=== PATIENT | female | born 1960 | race Caucasian/White ===

== ENCOUNTER → 2016-10-07 | Outpatient (CLI) | payer BC, MEDICARE ==
[~2016-10-07] MED LIST: ALPR0.5T PO; AMLO10TA82 PO; AMLO5TAB2 PO; ASP81TEC PO; CITA-105 PO; DICY20TA10 PO; ESCI20TA2 PO; ESTR1TAB24 PO; FURO20TA4 PO; HYOS0.3710 PO; METO25TA2 PO; PNT40TEC PO; PRD10T PO; TRZ50T PO; XANAX
--- NOTE | 2016-10-07 12:24 | Diagnostic Imaging Report ---
PROCEDURE: MR imaging cervical spine without contrast. TECHNIQUE: Multiplanar, multisequence MR imaging of the cervical spine was performed without contrast. INDICATION: Left arm pain and numbness. FINDINGS: There is straightening of the cervical spine. The alignment of the posterior spinal line is satisfactory. There is a congenital, relatively narrow AP dimension of the spinal canal particularly around the mid cervical spine levels. With superimposed prominent posterior longitudinal ligament thickening, this results in moderate central canal stenosis from lower C3 to upper C6 levels. There is preserved vertebral body heights. There is a mild disc height loss around the mid cervical spine levels and there is disc desiccation at all levels. No significant marrow signal abnormality is seen. There is suggestion of multilevel uncovertebral and facet joint hypertrophy. The foramen magnum and the upper cervical canal are patent. The spinal cord has normal signal with no focal lesion identified. There is thickening of the posterior longitudinal ligament from lower C3 to upper C6 levels. C2-C3: No disc herniation, no spinal canal or foraminal stenosis. C3-C4: There is a disc spur complex eccentric to the right side and associated with ycuhlyee-qq-eiqdji spinal canal stenosis reducing the AP dimension of the central canal to 7 mm and is associated with the mild cord compression particularly along the right side of the spinal cord with no definite cord signal abnormality. There is bilateral uncovertebral and facet joint hypertrophy resulting in bilateral severe foraminal stenosis. C4-C5: There is spur disc complex resulting in moderate spinal canal stenosis with reduced AP dimension of the canal to 8.5 mm. No cord compression. The foramina demonstrate mild stenosis on the right and severe stenosis on the left. C5-C6: There is a spur disc complex more prominent along the left paracentral region. This is associated with qbdtusfx-cn-nloahj spinal canal stenosis reducing the AP dimension of the central canal to 7.7 mm and associated with minimal compression of the left side of the spinal cord at this level. The foramina demonstrate severe stenosis on the right mainly related to uncovertebral joint spurring and mild stenosis in the left foramen. C6-C7: There is spur disc complex associated with moderate spinal canal stenosis reducing the AP dimension of the canal to 8.4 mm with no cord compression. There is a bilateral moderate foraminal stenosis. C7-T1: No disc herniation, no spinal canal or foraminal stenosis. IMPRESSION: Relatively narrow AP dimension of the spinal canal in the mid cervical spine with superimposed thickening of the posterior longitudinal ligament and degenerative changes resulting in multilevel significant spinal canal and foraminal stenosis with relatively mild areas of cord compression as described. No cord signal abnormality is seen. Dictated by: Dictated on workstation # [id number]
== END ==
LOC: RAD 09:27
PROVIDERS: ATTEND Orthopaedic Surgery
DX: M47.812 Spondylosis without myelopathy or radiculopathy, cervical region (principal); M48.02 Spinal stenosis, cervical region
CPT/HCPCS: 72141

== ENCOUNTER 2017-03-03 20:37 | Outpatient (CLI) | payer MEDICARE | END 2017-03-04 06:40 | disposition home or self-care (01) | LOC: SLEEP 20:37 | PROVIDERS: ATTEND Nurse Practitioner Family | DX: G47.33 Obstructive sleep apnea (adult) (pediatric) (principal) | CPT/HCPCS: 95810 ==

== ENCOUNTER 2017-03-13 12:56 | Outpatient (CLI) | payer MEDICARE ==
[~2017-03-13] VITALS: Ht 152.4 cm; Wt 101.6 kg
[2017-03-13 13:13] VITALS: BP 154/92
[2017-03-13] MEDS ORDERED: ESCI20TA45 PO (13:15)
[2017-03-13] MEDS ORDERED: AMLO10TA2 PO (13:15)
[2017-03-13] MEDS ORDERED: FURO20TA4 PO (13:15)
[2017-03-13 14:01] LABS: BASOPHILS % (AUTO) 1 % (0-10); EOSINOPHILS # (AUTO) 0.1 10^3/uL (0.0-0.3); EOSINOPHILS % (AUTO) 1 % (0-10); LYMPHOCYTES # (AUTO) 1.9 X 10^3 (1.0-4.0); LYMPHOCYTES % (AUTO) 23 % (12-44); MEAN CORPUSCULAR HEMOGLOBIN 33 PG (25-34); MEAN CORPUSCULAR HGB CONC 34 G/DL (32-36); MEAN CORPUSCULAR VOLUME 98 FL (80-99); MEAN PLATELET VOLUME 10.9 FL (7.4-10.4); MONOCYTES # (AUTO) 0.5 X 10^3 (0.0-1.0); MONOCYTES % (AUTO) 6 % (0-12); NEUTROPHILS % (AUTO) 70 % (42-75); PLATELET COUNT 327 10^3/uL (130-400); RED BLOOD COUNT 4.36 10^6/uL (4.35-5.85); RED CELL DISTRIBUTION WIDTH 12.6 % (10.0-14.5); WHITE BLOOD COUNT 8.6 10^3/uL (4.3-11.0)
[2017-03-13 14:19] LABS: CALCIUM 9.5 MG/DL (8.5-10.1); CREATININE SERUM 1.02 MG/DL (0.60-1.30); POTASSIUM 3.2 MMOL/L (3.6-5.0)
== END 2017-03-13 13:40 | disposition home or self-care (01) ==
LOC: PREOP 12:56
PROVIDERS: ATTEND Orthopaedic Surgery
DX: Z01.810 Encounter for preprocedural cardiovascular examination (principal); Z01.812 Encounter for preprocedural laboratory examination; Z11.2 Encounter for screening for other bacterial diseases; M48.02 Spinal stenosis, cervical region; I10 Essential (primary) hypertension; E13.9 Other specified diabetes mellitus without complications
CPT/HCPCS: 36415; 80048; 85025; 86850; 86900; 86901; 87081; 93005

== ENCOUNTER 2017-03-20 09:11 | Inpatient (IN) | payer MEDICARE ==
[~2017-03-20] VITALS: Ht 152.4 cm; Wt 101.6 kg
[~2017-03-20 09:11] MED LIST changes: +AMLO10TA2 PO; +ESCI20TA45 PO
[2017-03-20 09:38] VITALS: BP 148/85
[2017-03-20] MEDS: LACTATED RINGERS 1,000 ML IV PRN ×3 (09:45→15:30)
[2017-03-20] MEDS ORDERED: CLINDAMYCIN INJECTION 600 MG in NS (IVPB) 50 ML IV ONE (09:45)
[2017-03-20] MEDS: MUPIROCIN 2% OINT 22 GM (BACTROBAN) TUBE NSEACH SCH ×2 (09:52→22:29)
[2017-03-20] MEDS ORDERED: LACTATED RINGERS 1,000 ML IV PRN (10:38)
[2017-03-20] MEDS ORDERED: SCOPOLAMINE 1.5 MG (TRANSDERM-SCOP) PATCH TOP ONE (10:45)
[2017-03-20] MEDS ORDERED: ONDANSETRON 4 MG/2 ML (SDV) Z0FRAN IV ONE (10:45)
[2017-03-20] MEDS ORDERED: FAMOTIDINE 20MG/2ML IV (PEPCID) IV ONE (10:45)
[2017-03-20] MEDS ORDERED: MIDAZOLAM 2 MG/2 ML (VERSED) VIAL ONE (10:46)
[2017-03-20] MEDS ORDERED: SUCCINYLCHOLINE INJ 100 MG/5 ML SYR ONE (10:46)
[2017-03-20] MEDS ORDERED: fentaNYL INJECTION 250 MCG/5 ML AMP ONE (10:46)
[2017-03-20] MEDS ORDERED: DEXMEDETOMIDINE 200 MCG/2 ML (PRECEDEX) VIAL IV ONE ×2 (10:46→14:29)
[2017-03-20] MEDS ORDERED: proPOfol 200 MG/20 ML (DIPRIVAN) VIAL IV ONE (10:46)
[2017-03-20] MEDS ORDERED: ROCURONIUM 50 MG/5 ML (ZEMURON) VIAL IV ONE (10:55)
[2017-03-20] MEDS ORDERED: SEVOFLURANE (ULTANE) 15 ML INHAL SOLN ONE ×9 (12:09→15:09)
[2017-03-20] MEDS ORDERED: ONDANSETRON 4 MG/2 ML (SDV) Z0FRAN ONE (12:09)
[2017-03-20] MEDS ORDERED: DEXAMETHASONE 10 MG/ML (DECADRON) 1 ML VIAL ONE ×2 (12:09→14:29)
[2017-03-20] MEDS ORDERED: BACITRACIN 100,000 UNIT/NS 1000 ML POUR BOTTLE IR ONE ×2 (12:15)
[2017-03-20] MEDS ORDERED: BISACODYL 5 MG (DULCOLAX) TABLET PO PRN (15:45)
[2017-03-20] MEDS ORDERED: DOCUSATE SODIUM 100 MG (COLACE) CAP PO PRN (15:45)
[2017-03-20] MEDS ORDERED: ONDANSETRON 4 MG/2 ML (SDV) Z0FRAN IV PRN (15:45)
[2017-03-20] MEDS ORDERED: BISACODYL 10 MG SUPP (DULCOLAX) PR PRN (15:45)
[2017-03-20] MEDS ORDERED: CYCLOBENZAPRINE 10 MG (FLEXERIL) TAB PO PRN (15:45)
[2017-03-20] MEDS ORDERED: ACETAMINOPHEN 325 MG TABLET/CAPLET (TYLENOL) PO PRN (15:45)
[2017-03-20] MEDS ORDERED: MEPERIDINE (DEMEROL) INJ 50 MG/ML IVP PRN (16:15)
[2017-03-20] MEDS ORDERED: ONDANSETRON 4 MG/2 ML (SDV) Z0FRAN IVP PRN (16:15)
[2017-03-20] MEDS ORDERED: fentaNYL INJECTION 100 MCG/2 ML AMP IVP PRN (16:15)
[2017-03-20 16:40] VITALS: BP 99/58
--- NOTE | 2017-03-20 17:03 | Diagnostic Imaging Report ---
EXAMINATION: Intraoperative view of the cervical spine. INDICATION: Fusion and decompression surgery in the cervical spine. FLUOROSCOPIC TIME: The fluoroscopic time provided to the OR is 23 seconds. IMPRESSION: Anterior plate and corpectomy changes involving the cervical spine from the C3 to C6 levels is suggested on the provided images. Dictated by: Dictated on workstation # [id number]
[2017-03-20] MEDS: HYDROcodone/APAP 5 MG/325 MG (LORTAB) TAB PO PRN ×2 (18:09→22:29)
[2017-03-20] MEDS ORDERED: INFLUENZA TRIvalent 2017-2018 0.5 ML/45 MCG SYR IM ONE (18:15)
[2017-03-20] MEDS: ceFAZolin INJECTION 1,000 MG in NS (IVPB) 50 ML IV SCH (18:57)
[2017-03-20 19:10] VITALS: BP 124/63
[2017-03-20] MEDS ORDERED: NON-FORMULARY MEDICATION 1 EA EA (Escitalopram Oxalate 20 MG) PO SCH (21:00)
[2017-03-20] MEDS: SENNOSIDES 8.6 MG (SENOKOT) TAB PO SCH (21:25)
[2017-03-20] MEDS: FAMOTIDINE 20 MG (PEPCID) TABLET PO SCH (21:25)
--- NOTE | 2017-03-20 23:39 | OPERATIVE REPORT ---
DATE OF SERVICE: 03/20/2017 SURGEON: Ras Cunningham DO. SUSHI CHEF: RAYMUNDO Flores. This is a medically necessary procedure. Assistance is necessary for retraction of vital neurovascular structures. Without an sales office assistant the procedure would not be possible. PREOPERATIVE DIAGNOSES: 1. Cervical stenosis (central, foraminal, bony). 2. Cervical radiculopathy. POSTOPERATIVE DIAGNOSES: 1. Cervical stenosis (central, foraminal, bony). 2. Cervical radiculopathy. PROCEDURES PERFORMED: 1. C3-4, C4-5, C5-6 anterior cervical diskectomy and fusion. 2. Application of titanium cage, C5-C6. 3. Application of corpectomy titanium cage C3 to C5. 4. C4 corpectomy. 5. Anterior instrumentation C3 to C6. 6. Use of human allograft for spine. 7. Use of local bone autograft. COMPLICATIONS: None. SPECIMENS SENT: None. DRAINS PLACED: Hemovac. ANESTHESIA: General endotracheal tube anesthesia with local anesthetic. HISTORY OF PRESENT ILLNESS: The patient is a very pleasant, morbidly obese 57-year-old female, who presented to me with severe bilateral upper extremity pain and neck pain. MRI demonstrated severe congenital stenosis with superimposed acquired stenosis at C3 all the way to C6 that stenosis did extend behind the body of C4. It was discussed with the patient her surgical options and I suggested a corpectomy in order to thoroughly decompress the spinal cord. She was agreeable. OPERATION: The patient was identified by name on wrist in the preoperative holding area. Her operative site was signed. Consent was signed. SCDs were placed. Neuro monitors hooked up. Antibiotics were started. She was taken to the operating room theater and placed under general endotracheal tube anesthesia and transferred to the operating room table in supine position. She was prepped and draped in usual sterile fashion. Formal timeout was conducted. At this point, a left-sided oblique incision was made just medial to the left sternocleidomastoid. Standard anterior cervical approach then took place. I then verified my level under lateral x-ray and I started at C3-4. I placed [place] pins in the body of C3 and the body of C4. I placed distraction across the disk space. I then performed a complete diskectomy. I then turned my attention to the C4-C5 level. I repeated this process. I then placed the [place] pin in the body of C3 and the body of C5. I applied distraction across the C4 vertebra, performed a complete corpectomy taking down the posterior longitudinal ligament and performing bilateral foraminotomies at both those levels. Once the decompression was complete, here I chose the appropriate titanium interbody cage packed with human allograft and local bone autograft and I seated it in the midline position. I then turned my attention to the C5-C6 level where I performed an annulotomy followed by diskectomy followed by bilateral foraminotomies. I packed in a titanium cage and packed that into the disk space at C5-C6. I then placed an appropriate sized plate in the midline position which extended from C3 to C6. I placed screws into the vertebral bodies of C3, C5 and C6. I checked a final AP and lateral x-ray and the hardware was in good position. At this point, I maintained hemostasis, irrigated the wound thoroughly, placed a deep drain alongside the plate. Then, I closed the wound in my usual layered fashion utilizing 3-0 Vicryl followed by running 3-0 subcuticular stitch. I applied dressings and took the patient in the supine position to the PACU where she awoke without incident. She tolerated the procedure well. PLAN: At this time, is to keep the patient in a hard collar whenever out of bed this evening. We will discontinue the drain and [place] per my protocol. Please note, instrumentation utilized was [employer] for everything. Job ID: [id number] DocumentID: [id number] Dictated Date: 03/20/2017 15:16:57 Medical Office Rep Date: 03/20/2017 23:39:14 Dictated By: RAS CUNNINGHAM DO
[2017-03-21] VITALS: BP 131/63
[2017-03-21] MEDS: HYDROcodone/APAP 10 MG/325 MG (LORTAB) TAB PO PRN ×2 (02:18→06:28)
[2017-03-21] MEDS: ceFAZolin INJECTION 1,000 MG in NS (IVPB) 50 ML IV SCH ×2 (03:08→12:03)
[2017-03-21 04:00] VITALS: BP 136/78
[2017-03-21] MEDS ORDERED: MULTIVIT W/MINERALS TAB (THERAGRAN M) PO SCH (07:00)
--- NOTE | 2017-03-21 07:45 | Discharge Summary ---
Diagnosis/Chief Complaint Date of Admission Mar 20, 2017 at 09:11 Date of Discharge 03/21/2017 Discharge Date: Mar 21, 2017 Discharge Time: 12:00 Admission Diagnosis Admission Diagnosis cervical stenosis Discharge Diagnosis same Reason Hospital Visit 57 yr old WF with severe cervical stenosis was admitted and underwent cervical fusion from C3-6. This was uncomplicated and she tolerated it well. She was stable for discharge home on POD 1. Discharge Summary Discharge Physical Examination Allergies: Coded Allergies: Penicillins (Verified Allergy, Unknown, 03/20/17) codeine (Verified Allergy, Unknown, 03/20/17) oxycodone (Verified Allergy, Unknown, 03/20/17) Vitals & I&Os Vital Signs Date Time Temp Pulse Resp B/P (MAP) Pulse Ox O2 Delivery O2 Flow Rate FiO2 03/21/17 04:00 97.8 97 18 136/78 (97) 97 Room Air 03/21/17 00:00 2.50 Extremities: Other (5/5 motor gayla UE, NVSI, wound CDI) Hospital Course underwent C3-6 acdf on 03/20/17. this was uncomplicated and she was stable for dc home on POD 1. Discharge Instructions to patient/family Please see electronic discharge instructions given to patient. Discharge Medications Reviewed and agree with Discharge Medication list on patient's Discharge Instruction sheet Clinical Quality Measures DVT/VTE Risk/Contraindication: Risk Factor Score Per Nursin RFS Level Per Nursing on Admit: 4+=Very High RAS DE SANTIAGO DO Mar 21, 2017 07:45
--- NOTE | 2017-03-21 07:52 | Discharge Inst-Simple/Standard ---
Discharge Inst-Standard Discharge Medications New, Converted or Re-Newed RX: RX Given to Pt/Family Patient Instructions/Follow Up Plan of Care/Instructions/FU: f/u in two weeks Activity as Tolerated: Yes Discharge Diet: No Restrictions RAS DE SANTIAGO DO Mar 21, 2017 07:52
[2017-03-21 08:00] VITALS: BP 168/93
[2017-03-21] MEDS: HYDROmorphone (DILAUDID) 4 MG TAB PO PRN ×2 (08:35→12:40)
[2017-03-21] MEDS: FAMOTIDINE 20 MG (PEPCID) TABLET PO SCH (08:42)
[2017-03-21] MEDS: SENNOSIDES 8.6 MG (SENOKOT) TAB PO SCH (08:42)
[2017-03-21] MEDS: MUPIROCIN 2% OINT 22 GM (BACTROBAN) TUBE NSEACH SCH (08:44)
[2017-03-21] MEDS ORDERED: FUROSEMIDE 20 MG (LASIX) TAB PO SCH (09:00)
[2017-03-21] MEDS ORDERED: amLODIPine 10 MG (NORVASC) TAB PO SCH (09:00)
[2017-03-21 12:00] VITALS: BP 138/68
--- NOTE | 2017-03-21 12:03 | Diagnostic Imaging Report ---
Three views of the cervical spine. INDICATION: Baseline postoperative changes. FINDINGS: There is anterior fusion hardware placement involving C3 through C7 levels with associated findings of C4 and C5 corpectomy. The alignment of the posterior spinal line is satisfactory with straightening of the lordotic curvature seen. Disc height loss at C7-T1 is noted. IMPRESSION: Anterior fusion of C3 through C7 with C4 and C5 corpectomy changes in good alignment. Dictated by: Dictated on workstation # [id number]
[2017-03-21 12:58] VITALS: BP 138/68
== END 2017-03-21 12:58 | disposition home or self-care (01) | DRG 472 ==
LOC: SURGICAL 09:11 → SURG 09:12 → 4TH 16:40
PROVIDERS: ADMIT Orthopaedic Surgery; ATTEND Orthopaedic Surgery
PROC: 0RG20A0 Fusion of 2 or more Cervical Vertebral Joints with Interbody Fusion Device, Anterior Approach, Anterior Column, Open Approach (ICD-10-PCS; principal; 2017-03-20 13:01)
DX: M48.02 Spinal stenosis, cervical region (principal); M54.12 Radiculopathy, cervical region; E66.01 Morbid (severe) obesity due to excess calories; Z68.41 Body mass index [BMI] 40.0-44.9, adult; I10 Essential (primary) hypertension; G47.33 Obstructive sleep apnea (adult) (pediatric); F32.9 Major depressive disorder, single episode, unspecified
CPT/HCPCS: 72040; 94664

== ENCOUNTER → 2017-03-23 | Outpatient (CLI) | payer MEDICARE ==
--- NOTE | 2017-03-23 16:07 | Diagnostic Imaging Report ---
PROCEDURE: MR imaging cervical spine without contrast. TECHNIQUE: Multiplanar, multisequence MR imaging of the cervical spine was performed without contrast. INDICATION: Fall after recent cervical spine surgery resulting in numbness in bilateral hands and feet. Evaluate for acute cord compression. FINDINGS: There is susceptibility artifact from anterior plate and screws involving C3 through C6 levels. There is suggestion of C4 corpectomy changes. There is no epidural fluid collection or hemorrhage. The posterior spinal line demonstrates postsurgical changes. Interval improvement in spinal canal stenosis at and around the C4 level from previously seen posterior longitudinal ligament thickening and posterior osteophytes. There is still posterior longitudinal ligament thickening around the C6 level and posterior osteophytes at C5-C6 and C6-C7. No significant marrow signal abnormality is seen. The spinal cord demonstrates normal caliber and no abnormal signal is seen. The foramen magnum and upper cervical canal are patent. C2-C3: There is no disc herniation, no spinal canal or foraminal stenosis. C3-C4: Postsurgical changes of corpectomy are seen with no significant spinal canal stenosis remaining. The foramina demonstrate mild stenosis on the right and vkhwwogn-kd-utlttm stenosis on the left. C4-C5: Postsurgical changes are seen with no significant spinal canal stenosis remaining. No cord compression. The foramina demonstrate wfqyjzvf-hq-sgavxj stenosis bilaterally. C5-C6: There is remaining posterior longitudinal ligament thickening and facet osteophytes with fvnlxaqw-qj-axjhgm spinal canal stenosis reducing the AP dimension of the canal to 7 mm. No cord compression. The foramina demonstrate mild stenosis on the left and dpolormg-ul-sjdedw stenosis on the right. C6-C7: There is remaining posterior osteophytes and posterior longitudinal ligament thickening with moderate spinal canal stenosis reducing the central canal AP dimension to 8 mm. No cord compression. The foramina demonstrate ylerhdpw-xn-hqryzv stenosis on the right side and mild stenosis on the left. C7-T1: No significant spinal canal or foraminal stenosis. IMPRESSION: Post anterior fusion changes of C3 through C6 levels with C4 corpectomy. There is improvement in the previously seen spinal canal stenosis around the C4 level. Spinal canal stenosis around C5-C6 and C6-C7 and multilevel foraminal stenosis is seen. No cord compression. Dictated by: Dictated on workstation # [id number]
== END ==
LOC: RAD 14:43
PROVIDERS: ATTEND Orthopaedic Surgery
DX: M48.02 Spinal stenosis, cervical region (principal); Z98.890 Other specified postprocedural states
CPT/HCPCS: 72141

== ENCOUNTER 2017-05-26 20:00 | Outpatient (CLI) | payer MEDICARE | END 2017-05-27 06:35 | disposition home or self-care (01) | LOC: SLEEP 20:00 | PROVIDERS: ATTEND Otolaryngology Otolaryngology/Facial Plastic Surgery | DX: G47.33 Obstructive sleep apnea (adult) (pediatric) (principal) | CPT/HCPCS: 95811 ==

== ENCOUNTER 2017-06-21 21:23 | Emergency (ER) | payer MEDICARE ==
[~2017-06-21] VITALS: Ht 152.4 cm; Wt 101.6 kg
[2017-06-21] MEDS ORDERED: CEPH-507 PO (22:07)
--- NOTE | 2017-06-21 22:07 | ED Upper Extremity ---
General Chief Complaint: Laceration Stated Complaint: LAC LEFT HAND Nursing Triage Note: PT PRESENTS TO ER WITH COMPLAINT OF LEFT HAND LACERATION. PT STATES SHE TRIPPED WHILE CARRYING A GLASS. Nursing Sepsis Screen: No Definite Risk Source: patient Exam Limitations: no limitations History of Present Illness Date Seen by Provider: Jun 21, 2017 Time Seen by Provider: 22:03 Initial Comments To ER with laceration to the palmar surface of the left hand. She states she tripped while carrying a glass. Tetanus is not up-to-date. Onset: just prior to arrival Severity: moderate Pain/Injury Location: left hand Allergies and Home Medications Allergies Coded Allergies: Penicillins (Verified Allergy, Unknown, 03/20/17) codeine (Verified Allergy, Unknown, Pt has had Hydrocodone w/o issue, ) oxycodone (Verified Allergy, Unknown, Pt has had Hydrocodone w/o issue, ) Home Medications Amlodipine Besylate 10 Mg Tablet, 10 MG PO DAILY, (Reported) Cephalexin 500 Mg Capsule, 500 MG PO TID Prescribed by: ALEAH SIM on 06/21/172206 Escitalopram Oxalate 20 Mg Tablet, 20 MG PO BID, (Reported) Furosemide 20 Mg Tablet, 20 MG PO DAILY, (Reported) Patient Home Medication List Home Medication List Reviewed: Yes Constitutional: see HPI EENTM: see HPI Respiratory: no symptoms reported Musculoskeletal: no symptoms reported Skin: no symptoms reported Psychiatric/Neurological: No Symptoms Reported Past Rlmopqj-Kgynkt-Ynvmxr Hx Patient Social History Alcohol Use: Denies Use Recreational Drug Use: No Smoking Status: Never a Smoker Recent Foreign Travel: No Contact w/Someone Who Travel: No Recent Infectious Disease Expo: No Recent Hopitalizations: No Immunizations Up To Date Tetanus Booster (TDap): Less than 5yrs PED Vaccines UTD: Yes Date of Pneumonia Vaccine: Apr 27, 2012 Date of Influenza Vaccine: Feb 01, 2013 Seasonal Allergies Seasonal Allergies: Yes Surgeries History of Surgeries: Yes (HIATAL HERNIA REPAIR,NECK) Surgeries: Gallbladder, Hysterectomy Respiratory History of Respiratory Disorde: Yes (ARDS-ON VENTILATOR X 10 DAYS 2012) Respiratory Disorders: Pneumonia, Sleep Apnea Currently Using CPAP: Yes Cardiovascular History of Cardiac Disorders: Yes Neurological History of Neurological Disord: No Genitourinary History of Genitourinary Disor: No Gastrointestinal History of Gastrointestinal Di: Yes Gastrointestinal Disorders: Irritable Bowel Musculoskeletal History of Musculoskeletal Dis: Yes (STENOSIS) Musculoskeletal Disorders: Arthritis Endocrine History of Endocrine Disorders: No HEENT History of HEENT Disorders: No Cancer History of Cancer: No Psychosocial History of Psychiatric Problem: Yes Behavioral Health Disorders: Sleep Difficulties, Anxiety, Depression Integumentary History of Skin or Integumenta: No Blood Transfusions History of Blood Disorders: No Adverse Reaction to a Blood Tr: No Family Medical History Family Medial History: Cancer 03 MOTHER 09 SISTER Congestive heart failure 03 FATHER Family history: Breast disease 03 MOTHER Family history: Cardiovascular disease 03 FATHER 09 SISTER Family history: Coronary thrombosis Family history: Diabetes mellitus 09 BROTHER Family history: Hypertension 03 FATHER 03 MOTHER 09 SISTER 09 SISTER 09 SISTER Family history: Thyroid disorder 09 SISTER Headache 09 SISTER Heart disease 03 FATHER Myocardial infarction 03 FATHER 09 BROTHER Physical Exam Vital Signs Vital Signs - First Documented 06/21/17 21:43 Temp 98.0 Pulse 90 Resp 20 B/P (MAP) 143/91 (108) Pulse Ox 98 O2 Delivery Room Air Capillary Refill : Less Than 3 Seconds General Appearance: WD/WN, no apparent distress HEENT: PERRL/EOMI, normal ENT inspection Neck: non-tender, full range of motion Respiratory: no respiratory distress, no accessory muscle use Gastrointestinal: normal bowel sounds, non tender Shoulder: normal inspection, non-tender Elbow/Forearm: normal inspection, non-tender Wrist: Yes normal inspection, Yes non-tender Hand: Left, laceration (3 cm laceration to the palm of the left hand depth to the subcutaneous tissue. Able to flex each finger.) Laceration Repair : Wound Location: Upper Extremities Wound Length (cm): 3 Wound's Depth, Shape: linear Wound Explored: clean Irrigated w/ Saline (ccs): 75 Anesthesia: 1% Lidocaine Suture: Prolene Suture Size: 5-0 Number of Sutures: 6 Layer Closure?: 1 Number Deep Layer Sutures: 0 Progress Anesthetized with 3 mL of 2% lidocaine without epinephrine. Wound then scrubbed with chlorhexidine/saline solution. Then closed with 6 simple interrupted sutures size 5-0 Prolene. Wrapped with triple antibiotic ointment and gauze. Progress/Results/Core Measures Results/Orders Vital Signs/I&O Blood Pressure Mean: 108 Departure Impression Impression: Primary Impression: Laceration Disposition: 01 HOME, SELF-CARE Condition: Stable Departure-Patient Inst. Decision time for Depature: 22:06 Referrals: YAZ MOJICA DO (PCP/Family) Primary Care Physician Patient Instructions: Laceration Repair With Stitches (DC) Add. Discharge Instructions: 1. Return to ER for any concerns. Otherwise, return to the emergency room in 7- 10 days at a time at your convenience to have the stitches removed. You may shower allowing water to run over this starting tomorrow but do not soak it in water such as a hot tub, bath tub or swimming pool. Scripts Cephalexin (Keflex) 500 Mg Capsule 500 MG PO TID, #21 CAP Prov: ALEAH SIM APRN 06/21/17 ALEAH SIM APRN Jun 21, 2017 22:07
[2017-06-21 22:22] VITALS: BP 143/91
== END 2017-06-21 22:22 | disposition home or self-care (01) ==
LOC: EDUNIT# 21:23 → ER 21:25
DX: S61.412A Laceration without foreign body of left hand, initial encounter (principal); F41.9 Anxiety disorder, unspecified; F32.9 Major depressive disorder, single episode, unspecified; G47.30 Sleep apnea, unspecified; Z87.19 Personal history of other diseases of the digestive system; Z87.01 Personal history of pneumonia (recurrent); Z90.710 Acquired absence of both cervix and uterus; Z88.0 Allergy status to penicillin; Z88.5 Allergy status to narcotic agent; W25.XXXA Contact with sharp glass, initial encounter
CPT/HCPCS: 12002

== ENCOUNTER 2017-07-31 19:41 | Inpatient (IN) | payer MEDICARE, OTHER ==
[~2017-07-31] VITALS: Ht 152.4 cm; Wt 101.4 kg
[~2017-07-31 19:41] MED LIST changes: +CEPH-507 PO
--- OUTSIDE RECORDS SUMMARY | 2017-07-31 19:48 | XMS REPORT | Continuity of Care Document ---
Author Author [facility] Organization [facility] Address Unknown Phone Unavailable Allergies Active Description Code Type Severity Reaction Onset Reported/Identified Relationship to Patient Clinical Status Yes CODEINE SULFATE MILD OTHER Yes OXYCODONE MILD ITCHING Yes codeine [id number] Drug Allergy Unknown N/A 03/20/2017 Yes oxycodone [id number] Drug Allergy Unknown N/A 03/20/2017 Yes Penicillins [id number] Drug Allergy Unknown N/A 03/20/2017 Yes codeine [id number] Drug Allergy Unknown Pt has had Hydr 03/21/2017 Yes oxycodone [id number] Drug Allergy Unknown Pt has had Hydr 03/21/2017 Medications There is no data. Problems Date Dx Coded Attending Type Code Diagnosis Diagnosed By 06/01/2012 Ot 786.05 SHORTNESS OF BREATH 06/01/2012 Ot 786.09 RESPIRATORY ABNORM NEC 06/01/2012 Ot V12.61 PERSONAL HISTORY, PNEUMONIA (RECURRENT) 06/01/2012 Ot V58.69 OTH MED,LT, CURRENT USE 08/10/2012 ZA PETER, KELSEY Holm Ot 327.23 OBSTRUCTIVE SLEEP APNEA (ADULT) (PEDIATR 08/10/2012 ZA PETER, KELSEY Holm Ot 327.51 PERIODIC LIMB MOVEMENT DISORDER 04/30/2013 ALEX POST MD Ot 272.4 HYPERLIPIDEMIA NEC/NOS 04/30/2013 ALEX POST MD Ot 401.9 HYPERTENSION NOS 04/30/2013 ALEX POST MD Ot 414.01 CORONARY ATHEROSCLEROSIS OF EGEGIK CORON 04/30/2013 ALEX POST MD Ot 427.89 CARDIAC DYSRHYTHMIAS NEC 04/30/2013 ALEX POST MD Ot 530.11 REFLUX ESOPHAGITIS 04/30/2013 ALEX POST MD Ot 530.3 ESOPHAGEAL STRICTURE 04/30/2013 ALEX POST MD Ot 535.50 UNSP GASTRITIS GASTRODUODENITIS W/O ME 04/30/2013 SINCERE PETER ALEX Das Ot V58.69 OT MED,LT,CURRENT USE 09/24/2015 ZA PETER, KELSEY Holm Ot G47.33 OBSTRUCTIVE SLEEP APNEA (ADULT) (PEDIATR 09/30/2015 ZA PETER, KELSEY Holm Ot G47.33 OBSTRUCTIVE SLEEP APNEA (ADULT) (PEDIATR 10/28/2016 RAS DE SANTIAGO DO Ot M47.812 SPONDYLOSIS W/O MYELOPATHY OR RADICULOPA 10/28/2016 RAS DE SANTIAGO DO Ot M48.02 SPINAL STENOSIS, CERVICAL REGION 02/10/2017 PaNick chan W 782.1 RASH AND OTHER NONSPECIFIC SKIN ERUPTION 02/10/2017 Paoni Nick W R21 RASH AND OTHER NONSPECIFIC SKIN ERUPTION 02/10/2017 PaNick chan W 782.1 RASH AND OTHER NONSPECIFIC SKIN ERUPTION 02/10/2017 PaNick chan W R21 RASH AND OTHER NONSPECIFIC SKIN ERUPTION 03/02/2017 ALIYAHJUAN ARMENTA J WET WHEELER Ot G47.33 OBSTRUCTIVE SLEEP APNEA (ADULT) (PEDIATR 03/03/2017 ALIYAH, JUAN J WET WHEELER Ot G47.33 OBSTRUCTIVE SLEEP APNEA (ADULT) (PEDIATR 03/03/2017 RAS DE SANTIAGO DO Ot M47.812 SPONDYLOSIS W/O MYELOPATHY OR RADICULOPA 03/03/2017 RAS DE SANTIAGO DO Ot M48.02 SPINAL STENOSIS, CERVICAL REGION 03/03/2017 ALIYAHJUAN ARMENTA WET WHEELER Ot G47.33 OBSTRUCTIVE SLEEP APNEA (ADULT) (PEDIATR 03/04/2017 ALIYAH, ANDRA J WET WHEELER Ot G47.33 OBSTRUCTIVE SLEEP APNEA (ADULT) (PEDIATR 03/06/2017 ALIYAH, JUAN J WET WHEELER Ot G47.33 OBSTRUCTIVE SLEEP APNEA (ADULT) (PEDIATR 03/13/2017 RAS DE SANTIAGO DO Ot M47.812 SPONDYLOSIS W/O MYELOPATHY OR RADICULOPA 03/13/2017 RAS DE SANTIAGO DO Ot M48.02 SPINAL STENOSIS, CERVICAL REGION 03/13/2017 RAS DE SANTIAGO DO Ot E13.9 OTHER SPECIFIED DIABETES MELLITUS WITHOU 03/13/2017 RAS DE SANTIAGO DO Ot I10 ESSENTIAL (PRIMARY) HYPERTENSION 03/13/2017 RAS DE SANTIAGO DO Ot M48.02 SPINAL STENOSIS, CERVICAL REGION 03/13/2017 RAS DE SANTIAGO DO Ot Z01.810 ENCOUNTER FOR PREPROCEDURAL CARDIOVASCUL 03/13/2017 RAS DE SANTIAGO DO, Ot Z01.812 ENCOUNTER FOR PREPROCEDURAL LABORATORY E 03/13/2017 RAS DE SANTIAGO DO Ot Z11.2 ENCOUNTER FOR SCREENING FOR OTHER BACTER 03/20/2017 KELSEY MENDENHALL MD Ot G47.33 OBSTRUCTIVE SLEEP APNEA (ADULT) (PEDIATR 03/21/2017 KELSEY MENDENHALL MD, Ot G47.33 OBSTRUCTIVE SLEEP APNEA (ADULT) (PEDIATR 03/21/2017 RAS DE SANTIAGO DO Ot E66.01 MORBID (SEVERE) OBESITY DUE TO EXCESS CA 03/21/2017 RAS DE SANTIAGO DO Ot F32.9 MAJOR DEPRESSIVE DISORDER, SINGLE EPISOD 03/21/2017 RAS DE SANTIAGO DO, Ot G47.33 OBSTRUCTIVE SLEEP APNEA (ADULT) (PEDIATR 03/21/2017 RAS DE SANTIAGO DO Ot I10 ESSENTIAL (PRIMARY) HYPERTENSION 03/21/2017 RAS DE SANTIAGO DO Ot M48.02 SPINAL STENOSIS, CERVICAL REGION 03/21/2017 RAS DE SANTIAGO DO Ot M54.12 RADICULOPATHY, CERVICAL REGION 03/21/2017 RAS DE SANTIAGO DO Ot Z68.41 BODY MASS INDEX (BMI) 40.0-44.9, ADULT 03/29/2017 KELSEY MENDENHALL MD Ot G47.33 OBSTRUCTIVE SLEEP APNEA (ADULT) (PEDIATR 04/13/2017 RAS DE SANTIAGO DO Ot M48.02 SPINAL STENOSIS, CERVICAL REGION 04/13/2017 RAS DE SANTIAGO DO Ot Z98.890 OTHER SPECIFIED POSTPROCEDURAL STATES 04/19/2017 KELSEY MENDENHALL MD Ot G47.33 OBSTRUCTIVE SLEEP APNEA (ADULT) (PEDIATR 05/24/2017 RAS DE SANTIAGO DO Ot M48.02 SPINAL STENOSIS, CERVICAL REGION 05/24/2017 RAS DE SANTIAGO DO Ot Z98.890 OTHER SPECIFIED POSTPROCEDURAL STATES 05/24/2017 RAS DE SANTIAGO DO, Ot M47.812 SPONDYLOSIS W/O MYELOPATHY OR RADICULOPA 05/24/2017 RAS DE SANTIAGO DO Ot M48.02 SPINAL STENOSIS, CERVICAL REGION 05/24/2017 KELSEY MENDENHALL MD Ot G47.33 OBSTRUCTIVE SLEEP APNEA (ADULT) (PEDIATR 05/24/2017 RAS DE SANTIAGO DO Ot M48.02 SPINAL STENOSIS, CERVICAL REGION 05/24/2017 JONNATHAN RAS FREED Ot Z98.890 OTHER SPECIFIED POSTPROCEDURAL STATES 05/25/2017 ZA PETER, KELSEY Holm Ot G47.33 OBSTRUCTIVE SLEEP APNEA (ADULT) (PEDIATR 05/25/2017 JONNATHANRAS GOLDEN DO Ot M47.812 SPONDYLOSIS W/O MYELOPATHY OR RADICULOPA 05/25/2017 RAS DE SANTIAGO DO Ot M48.02 SPINAL STENOSIS, CERVICAL REGION 05/25/2017 KELSEY MENDENHALL MD Ot G47.33 OBSTRUCTIVE SLEEP APNEA (ADULT) (PEDIATR 05/25/2017 RAS DE SANTIAGO DO Ot M48.02 SPINAL STENOSIS, CERVICAL REGION 05/25/2017 RAS DE SANTIAGO DO Ot Z98.890 OTHER SPECIFIED POSTPROCEDURAL STATES 05/27/2017 KELSEY MENDENHALL MD Ot G47.33 OBSTRUCTIVE SLEEP APNEA (ADULT) (PEDIATR 05/30/2017 KELSEY MENDENHALL MD Ot G47.33 OBSTRUCTIVE SLEEP APNEA (ADULT) (PEDIATR 06/21/2017 ALEAH SIM APRN Ot F32.9 MAJOR DEPRESSIVE DISORDER, SINGLE EPISOD 06/21/2017 ALEAH SIM APRN Ot F41.9 ANXIETY DISORDER, UNSPECIFIED 06/21/2017 ALEAH SIM APRN Ot G47.30 SLEEP APNEA, UNSPECIFIED 06/21/2017 ALEAH SIM APRN Ot S61.412A LACERATION WITHOUT FOREIGN BODY OF LEFT 06/21/2017 ALEAH SIM APRN Ot W25.XXXA CONTACT WITH [place], INITIAL ENCOUN 06/21/2017 ALEAH SIM APRN Ot Z87.01 PERSONAL HISTORY OF PNEUMONIA (RECURRENT 06/21/2017 ALEAH SIM APRN Ot Z87.19 PERSONAL HISTORY OF OTHER DISEASES OF TH 06/21/2017 ALEAH SIM APRN Ot Z88.0 ALLERGY STATUS TO PENICILLIN 06/21/2017 ALEAH SIM APRN Ot Z88.5 ALLERGY STATUS TO NARCOTIC AGENT STATUS 06/21/2017 ALEAH SIM APRN Ot Z90.710 ACQUIRED ABSENCE OF BOTH CERVIX AND UTER 06/23/2017 ALEAH SIM APRN Ot F32.9 MAJOR DEPRESSIVE DISORDER, SINGLE EPISOD 06/23/2017 ALEAH SIM APRN Ot F41.9 ANXIETY DISORDER, UNSPECIFIED 06/23/2017 ALEAH SIM APRN Ot G47.30 SLEEP APNEA, UNSPECIFIED 06/23/2017 ALEAH SIM APRN Ot S61.412A LACERATION WITHOUT FOREIGN BODY OF LEFT 06/23/2017 ALEAH SIM APRN Ot W25.XXXA CONTACT WITH [place], INITIAL ENCOUN 06/23/2017 ALEAH SIM APRN Ot Z87.01 PERSONAL HISTORY OF PNEUMONIA (RECURRENT 06/23/2017 ALEAH SIM APRN Ot Z87.19 PERSONAL HISTORY OF OTHER DISEASES OF TH 06/23/2017 ALEAH SIM APRN Ot Z88.0 ALLERGY STATUS TO PENICILLIN 06/23/2017 ALEAH SIM APRN Ot Z88.5 ALLERGY STATUS TO NARCOTIC AGENT STATUS 06/23/2017 ALEAH SIM APRN Ot Z90.710 ACQUIRED ABSENCE OF BOTH CERVIX AND UTER Procedures Code Description Performed By Performed On [id number] FUSION 2-6 C JT W INTBD FUS DEV, ANT MI 03/20/2017 Results Test Result Range Thyroid Stimulating Hormone - 09/12/16 13:46 TSH 0.67 mIU/mL 0.32-5.00 MAXX Other Source - 02/10/17 10:06 MAXX Other Source Fungal elements seen 0.00-0.00 Methicillin resistant Staphylococcus aureus (MRSA) screening culture - 13:20 MRSA SCREEN RESULT MRSA ISOLATED NR Complete blood count (CBC) with automated white blood cell (WBC) differential - 03/13/17 13:26 Blood leukocytes automated count (number/volume) 8.6 10*3/uL 4.3-11.0 Blood erythrocytes automated count (number/volume) 4.36 10*6/uL 4.35-5.85 Venous blood hemoglobin measurement (mass/volume) 14.4 g/dL 11.5-16.0 Blood hematocrit (volume fraction) 43 % 35-52 Automated erythrocyte mean corpuscular volume 98 [foz_us] 80-99 Automated erythrocyte mean corpuscular hemoglobin (mass per erythrocyte) 33 pg 25-34 Automated erythrocyte mean corpuscular hemoglobin concentration measurement ( mass/volume) 34 g/dL 32-36 Automated erythrocyte distribution width ratio 12.6 % 10.0-14.5 Automated blood platelet count (count/volume) 327 10*3/uL 130-400 Automated blood platelet mean volume measurement 10.9 [foz_us] 7.4-10.4 Automated blood neutrophils/100 leukocytes 70 % 42-75 Automated blood lymphocytes/100 leukocytes 23 % 12-44 Blood monocytes/100 leukocytes 6 % 0-12 Automated blood eosinophils/100 leukocytes 1 % 0-10 Automated blood basophils/100 leukocytes 1 % 0-10 Blood neutrophils automated count (number/volume) 6.0 10*3 1.8-7.8 Blood lymphocytes automated count (number/volume) 1.9 10*3 1.0-4.0 Blood monocytes automated count (number/volume) 0.5 10*3 0.0-1.0 Automated eosinophil count 0.1 10*3/uL 0.0-0.3 Automated blood basophil count (count/volume) 0.0 10*3/uL 0.0-0.1 Whole blood basic metabolic panel - 03/13/17 13:26 Serum or plasma sodium measurement (moles/volume) 139 mmol/L 135-145 Serum or plasma potassium measurement (moles/volume) 3.2 mmol/L 3.6-5.0 Serum or plasma chloride measurement (moles/volume) 101 mmol/L 98-107 Carbon dioxide 26 mmol/L 21-32 Serum or plasma anion gap determination (moles/volume) 12 mmol/L 5-14 Serum or plasma urea nitrogen measurement (mass/volume) 11 mg/dL 7-18 Serum or plasma creatinine measurement (mass/volume) 1.02 mg/dL 0.60-1.30 Serum or plasma urea nitrogen/creatinine mass ratio 11 NRG Serum or plasma creatinine measurement with calculation of estimated glomerular filtration rate 55 NRG Serum or plasma glucose measurement (mass/volume) 126 mg/dL 70-105 Serum or plasma calcium measurement (mass/volume) 9.5 mg/dL 8.5-10.1 Blood type T Indirect antibody screen panel - 03/13/17 13:26 ABO+Rh group AP NRG Blood group antibody screen NEGATIVE NRG Blood type T Indirect antibody screen panel - 03/20/17 09:28 ABO+Rh group AP NRG Transfusion band number [id number] NRG Blood group antibody screen NEGATIVE NRG Encounters ACCT No. Visit Date/Time Discharge Status Pt. Type Provider Facility Loc./Unit Complaint [id number] 06/21/2017 21:25:00 06/21/2017 22:22:00 DIS Emergency ALEAH SIM DIGITAL ACCOUNT SUPERVISOR [facility] ER LAC LEFT HAND [id number] 05/26/2017 20:00:00 05/27/2017 06:35:00 DIS Outpatient KELSEY MENDENHALL MD [facility] SLEEP G47.33 [id number] 03/23/2017 14:43:00 03/23/2017 23:59:59 CLS Outpatient RAS DE SANTIAGO DO [facility] RAD EXTREMITY WEAKNESS,CORD COMPRESSION [id number] 03/20/2017 09:11:00 03/21/2017 12:58:00 DIS Inpatient RAS DE SANTIAGO DO Sofia [facility] 4TH STENOSIS [id number] 03/13/2017 12:56:00 03/13/2017 13:40:00 DIS Outpatient JONNATHAN FREED RAS Sofia [facility] PREOP STENOSIS [id number] 03/03/2017 20:37:00 03/04/2017 06:40:00 DIS Outpatient JUAN LY WET WHEELER [facility] SLEEP ELENITA G47.33 [id number] 10/07/2016 09:27:00 10/07/2016 23:59:59 CLS Outpatient RAS DE SANTIAGO DO [facility] RAD NECK PAIN [id number] 09/23/2015 20:00:00 09/24/2015 06:30:00 DIS Outpatient KELSEY MENDENHALL MD [facility] SLEEP OBSERVED APNEAS,ELENITA [id number] 04/27/2013 13:29:00 04/30/2013 14:22:00 DIS Outpatient ALEX POST MD [facility] CATH CHEST PAIN [id number] 08/09/2012 20:49:00 08/10/2012 06:55:00 DIS Outpatient KELSEY MENDENHALL MD [facility] SLEEP SLEEP APNEA [id number] 10/11/2016 14:22:00 Document Registration [id number] 05/31/2012 22:13:00 Document Registration [id number] 02/10/2017 10:01:00 02/10/2017 23:59:00 DIS Outpatient Nick Jolley [id number] 09/21/2016 13:38:00 09/21/2016 23:59:00 DIS Outpatient Nick Jolley [id number] 09/12/2016 13:41:00 Document Registration
[2017-07-31] MEDS ORDERED: ASPIRIN 81 MG CHEW (CHILDREN'S ASA) PO ONE (20:15)
[2017-07-31] MEDS ORDERED: NITROGLYCERIN 0.4 MG SL TABS BTL 25'S SL PRN (20:15)
--- NOTE | 2017-07-31 20:17 | ED Chest Pain ---
General Chief Complaint: Chest Pain Stated Complaint: SOB/BURNING IN CHEST/L ARM PAIN/BILAT LEG SWELLING Nursing Triage Note: pt presents to er with complaint of chest burning that radiates down her left arm and up to her throat Nursing Sepsis Screen: No Definite Risk Source: patient, family Exam Limitations: no limitations History of Present Illness Date Seen by Provider: Jul 31, 2017 Time Seen by Provider: 19:50 Initial Comments Here with central chest pain that she describes is burning and coursing from the epigastric region through the chest and radiates down the left arm. States that all 4 extremities are nonfocal. Does have history of high blood pressure and reports that she's been taking her blood pressure medicines. This started at 445 p.m. tonight and has persisted. Denies nausea, vomiting or weakness but states that she doesn't feel well. Has been recently had shoulder surgery and she discussed him home today when this started. Timing/Duration: 1-3 hours Severity/Quality: moderate, burning Location: central Radiation: arms, neck, epigastric Activities at Onset: none ASA po GRAPHIC DESIGN TEACHER: No NTG SL GRAPHIC DESIGN TEACHER: No Associated Symptoms: No abdominal pain, No back pain, No dizziness, No nausea/ vomiting, No shortness of breath Allergies and Home Medications Allergies Coded Allergies: Penicillins (Verified Allergy, Unknown, 03/20/17) codeine (Verified Allergy, Unknown, Pt has had Hydrocodone w/o issue, ) oxycodone (Verified Allergy, Unknown, Pt has had Hydrocodone w/o issue, ) Home Medications Amlodipine Besylate 10 Mg Tablet, 10 MG PO DAILY, (Reported) Escitalopram Oxalate 20 Mg Tablet, 20 MG PO BID, (Reported) Furosemide 20 Mg Tablet, 20 MG PO DAILY, (Reported) Patient Home Medication List Home Medication List Reviewed: Yes Review of Systems Constitutional: see HPI; No chills, No fever EENTM: No Symptoms Reported Respiratory: No Symptoms Reported Cardiovascular: See HPI, Chest Pain, Edema Gastrointestinal: No Symptoms Reported Genitourinary: No Symptoms Reported All Other Systems Reviewed Negative Unless Noted: Yes Past Hoeiffh-Xwnhem-Qrbumk Hx Past Med/Social Hx: Reviewed Nursing Past Med/Soc Hx Patient Social History Alcohol Use: Denies Use Recreational Drug Use: No Smoking Status: Never a Smoker Recent Foreign Travel: No Contact w/Someone Who Travel: No Recent Infectious Disease Expo: No Recent Hopitalizations: No Immunizations Up To Date Tetanus Booster (TDap): Less than 5yrs PED Vaccines UTD: Yes Date of Pneumonia Vaccine: Apr 27, 2012 Date of Influenza Vaccine: Feb 01, 2013 Seasonal Allergies Seasonal Allergies: Yes Past Medical History Surgeries: Yes (HIATAL HERNIA REPAIR,NECK) Gallbladder, Hysterectomy Respiratory: Yes (ARDS-ON VENTILATOR X 10 DAYS 2013) Pneumonia, Sleep Apnea Currently Using CPAP: Yes Cardiac: Yes Neurological: No Genitourinary: No Gastrointestinal: Yes Irritable Bowel Musculoskeletal: Yes (STENOSIS) Arthritis Endocrine: No HEENT: No Cancer: No Psychosocial: Yes Sleep Difficulties, Anxiety, Depression Integumentary: No Blood Disorders: No Adverse Reaction/Blood Tranf: No Family Medical History Reviewed Nursing Family Hx Cancer 03 MOTHER 09 SISTER Congestive heart failure 03 FATHER Family history: Breast disease 03 MOTHER Family history: Cardiovascular disease 03 FATHER 09 SISTER Family history: Coronary thrombosis Family history: Diabetes mellitus 09 BROTHER Family history: Hypertension 03 FATHER 03 MOTHER 09 SISTER 09 SISTER 09 SISTER Family history: Thyroid disorder 09 SISTER Headache 09 SISTER Heart disease 03 FATHER Myocardial infarction 03 FATHER 09 BROTHER No Pertinent Family Hx Physical Exam Vital Signs Vital Signs - First Documented 07/31/17 19:47 Temp 98.8 Pulse 113 Resp 25 B/P (MAP) 201/104 (136) Pulse Ox 96 O2 Delivery Room Air Capillary Refill : Less Than 3 Seconds General Appearance: No Apparent Distress, WD/WN HEENT: PERRL/EOMI, Pharynx Normal Neck: Non Tender, Supple Respiratory: Lungs Clear, Normal Breath Sounds Cardiovascular: No Murmur, Tachycardia Gastrointestinal: Non Tender, Soft Extremity: Normal Range of Motion, Non Tender Neurologic/Psychiatric: Alert, Oriented x3 Skin: Normal Color, Warm/Dry Procedures/Interventions Suture Size: 5-0 Progress/Results/Core Measures Lab Results Laboratory Tests Test 07/31/17 20:10 Range/Units White Blood Count 9.7 4.3-11.0 10^3/uL Red Blood Count 4.00 L 4.35-5.85 10^6/uL Hemoglobin 13.4 11.5-16.0 G/DL Hematocrit 39 35-52 % Mean Corpuscular Volume 97 80-99 FL Mean Corpuscular Hemoglobin 34 25-34 PG Mean Corpuscular Hemoglobin Concent 35 32-36 G/DL Red Cell Distribution Width 13.4 10.0-14.5 % Platelet Count 324 130-400 10^3/uL Mean Platelet Volume 9.8 7.4-10.4 FL Neutrophils (%) (Auto) 63 42-75 % Lymphocytes (%) (Auto) 27 12-44 % Monocytes (%) (Auto) 8 0-12 % Eosinophils (%) (Auto) 1 0-10 % Basophils (%) (Auto) 0 0-10 % Neutrophils # (Auto) 6.1 1.8-7.8 X 10^3 Lymphocytes # (Auto) 2.6 1.0-4.0 X 10^3 Monocytes # (Auto) 0.8 0.0-1.0 X 10^3 Eosinophils # (Auto) 0.1 0.0-0.3 10^3/uL Basophils # (Auto) 0.0 0.0-0.1 10^3/uL Prothrombin Time 12.9 12.2-14.7 SEC INR Comment 1.0 0.8-1.4 Activated Partial Thromboplast Time 27 24-35 SEC D-Dimer 0.37 0.00-0.49 UG/ML Sodium Level 140 135-145 MMOL/L Potassium Level 3.2 L 3.6-5.0 MMOL/L Chloride Level 104 98-107 MMOL/L Carbon Dioxide Level 22 21-32 MMOL/L Anion Gap 14 5-14 MMOL/L Blood Urea Nitrogen 12 7-18 MG/DL Creatinine 0.84 0.60-1.30 MG/DL Estimat Glomerular Filtration Rate > 60 BUN/Creatinine Ratio 14 Glucose Level 101 70-105 MG/DL Calcium Level 9.2 8.5-10.1 MG/DL Magnesium Level 2.2 1.8-2.4 MG/DL Total Bilirubin 0.7 0.1-1.0 MG/DL Aspartate Amino Transf (AST/SGOT) 22 5-34 U/L Alanine Aminotransferase (ALT/SGPT) 22 0-55 U/L Alkaline Phosphatase 95 40-136 U/L Myoglobin 64.1 10.0-92.0 NG/ML Troponin I < 0.30 <0.30 NG/ML B-Type Natriuretic Peptide < 10.0 <100.0 PG/ML Total Protein 6.9 6.4-8.2 GM/DL Albumin 4.3 3.2-4.5 GM/DL Lipase 14 8-78 U/L My Orders Orders - ALONDRA PANIAGUA MD Cbc With Automated Diff (07/31/17 20:02) Magnesium (07/31/17 20:02) Chest 1 View, Ap/Pa Only (07/31/17 20:02) Ekg Tracing (07/31/17 20:02) Cardiac Profile 1 (07/31/17 20:02) Comprehensive Metabolic Panel (07/31/17 20:02) Myoglobin Serum (07/31/17 20:02) Protime With Inr (07/31/17 20:02) Partial Thromboplastin Time (07/31/17 20:02) O2 (07/31/17 20:02) Monitor-Rhythm Ecg Trace Only (07/31/17 20:) Lipid Panel (08/01/17 06:00) Aspirin Chewable Tablet (Baby Aspirin Ch (07/31/17 20:15) Nitroglycerin 0.4 Mg Btl 25's (Nitrostat (07/31/17 20:15) Saline Lock/Iv-Start (07/31/17 20:02) Lipase (07/31/17 20:02) BNP (07/31/17 20:02) Fibrin Degradation Products (07/31/17 20:02) Metoprolol Succinate (Xl) Tab (Toprol Xl (07/31/17 20:45) Lidocaine 2% Viscous 15 Ml (Xylocaine Vi (07/31/17 21:15) Antacid Suspension (Mylanta Suspension (07/31/17 21:15) Morphine Injection (Morphine Injection (07/31/17 21:02) Medications Given in ED Current Medications Medications Dose Ordered Sig/Ruba Route Start Time Stop Time Status Last Admin Dose Admin Al Hydrox/Mg Hydrox/Simethicone 30 ml ONCE ONCE PO 07/31/17 21:15 07/31/17 21:16 DC 07/31/17 21:09 30 ML Aspirin 324 mg ONCE ONCE PO 07/31/17 20:15 07/31/17 20:16 DC 07/31/17 20:14 324 MG Lidocaine HCl 15 ml ONCE ONCE PO 07/31/17 21:15 07/31/17 21:16 DC 07/31/17 21:09 15 ML Nitroglycerin 0.4 mg UD PRN SL 07/31/17 20:15 07/31/17 20:14 0.4 MG Vital Signs/I&O 07/31/17 19:47 Temp 98.8 Pulse 113 Resp 25 B/P (MAP) 201/104 (136) Pulse Ox 96 O2 Delivery Room Air Blood Pressure Mean: 136 Progress Note : Progress Note Seen and evaluated. IV, labs, EKG and chest x-ray ordered. ASA 324 mg by mouth ordered. Nitroglycerin sublingual ordered. Monitor patient. Toprol 50 mg XL by mouth ordered for continued high blood pressure and tachycardia. 2110 : Patient did receive morphine 2 mg IV and GI cocktail for continued very mild pain centrally. Blood pressure 163/92. I discussed the case with Dr. OSWALD and he says patient for admission, observation status for the high blood pressure and chest pain concerns. We will consult Dr. Lepe in the morning. She has seen him in the past. All findings and concerns were discussed with the patient and she agrees. Initial ECG Impression Date: Jul 31, 2017 Initial ECG Impression Time: 19:55 Initial ECG Rate: 105 Initial ECG Rhythm: S.Tach Comment Sinus tachycardia with normal axis. No evidence of ST elevation RI. Similar to previous of 03/13/17. Interpreted by me. Diagonstic Imaging: Xray Plain Films/CT/US/NM/MRI: chest Comments %(RAD)RES..mtdd.print.filter("cj")[facility] %(RAD)RES..mtdd.print.filter("cj")[place], [place] NAME: CHRIS CLIFFORDLLE Sofia [facility] REC#: [id number] PT STATUS: REG ER : 1960 PHYSICIAN: ALONDRA PANIAGUA MD ADMIT DATE: 07/31/17/ER Draft Date of Exam:07/31/17 CHEST 1 VIEW, AP/PA ONLY INDICATION: Chest pain, shortness of breath. COMPARISON: May 31, 2012. TECHNIQUE: Single frontal radiograph of the chest dated July 31, 2017. FINDINGS: Postsurgical changes within the cervical spine. The cardiac silhouette is borderline enlarged. No significant pulmonary vascular congestion. The lungs are clear of focal pulmonary opacity. No pleural effusion. No pneumothorax. No acute osseous abnormality. IMPRESSION: Borderline cardiomegaly without overt congestive heart failure or additional superimposed acute cardiopulmonary abnormality. Dictated on workstation # [id number] Dict: 07/31/172038 Trans: 07/31/172042 [id number] Interpreted by: YAZ CURTIS MD Electronically signed by: Departure Communication (Admissions) Time/Spoke to Admitting Phy: 21:11 Impression Primary Impression: Chest pain Qualified Codes: R07.9 - Chest pain, unspecified Additional Impression: Hypertension Qualified Codes: I10 - Essential (primary) hypertension Disposition: ADMITTED INPATIENT Condition: Stable Admissions Decision to Admit Reason: Admit from ER (General) Decision to Admit/Date: Jul 31, 2017 Time/Decision to Admit Time: 21:11 Departure-Patient Inst. Referrals: YAZ MOJICA DO (PCP/Family) Primary Care Physician ALONDRA PANIAGUA MD Jul 31, 2017 20:17
[2017-07-31 20:19] LABS: BASOPHILS % (AUTO) 0 % (0-10); EOSINOPHILS # (AUTO) 0.1 10^3/uL (0.0-0.3); EOSINOPHILS % (AUTO) 1 % (0-10); HEMATOCRIT 39 % (35-52); HEMOGLOBIN 13.4 G/DL (11.5-16.0); LYMPHOCYTES # (AUTO) 2.6 X 10^3 (1.0-4.0); LYMPHOCYTES % (AUTO) 27 % (12-44); MEAN CORPUSCULAR HEMOGLOBIN 34 PG (25-34); MEAN CORPUSCULAR HGB CONC 35 G/DL (32-36); MEAN CORPUSCULAR VOLUME 97 FL (80-99); MEAN PLATELET VOLUME 9.8 FL (7.4-10.4); MONOCYTES # (AUTO) 0.8 X 10^3 (0.0-1.0); MONOCYTES % (AUTO) 8 % (0-12); NEUTROPHILS # (AUTO) 6.1 X 10^3 (1.8-7.8); NEUTROPHILS % (AUTO) 63 % (42-75); PLATELET COUNT 324 10^3/uL (130-400); RED CELL DISTRIBUTION WIDTH 13.4 % (10.0-14.5); WHITE BLOOD COUNT 9.7 10^3/uL (4.3-11.0)
[2017-07-31 20:30] LABS: PROTHROMBIN TIME PATIENT 12.9 SEC (12.2-14.7)
[2017-07-31 20:39] LABS: ALANINE AMINOTRANSFERASE 22 U/L (0-55); ALBUMIN 4.3 GM/DL (3.2-4.5); ALKALINE PHOSPHATASE 95 U/L (40-136); BILIRUBIN,TOTAL 0.7 MG/DL (0.1-1.0); BUN/CREATININE RATIO 14; CALCIUM 9.2 MG/DL (8.5-10.1); CARBON DIOXIDE 22 MMOL/L (21-32); CHLORIDE 104 MMOL/L (98-107); CREATININE SERUM 0.84 MG/DL (0.60-1.30); GFR ESTIMATED > 60; GLUCOSE 101 MG/DL (70-105); LIPASE 14 U/L (8-78); MAGNESIUM 2.2 MG/DL (1.8-2.4); POTASSIUM 3.2 MMOL/L (3.6-5.0); SODIUM 140 MMOL/L (135-145); TOTAL PROTEIN 6.9 GM/DL (6.4-8.2)
--- NOTE | 2017-07-31 20:44 | Diagnostic Imaging Report ---
INDICATION: Chest pain, shortness of breath. COMPARISON: May 31, 2012. TECHNIQUE: Single frontal radiograph of the chest dated July 31, 2017. FINDINGS: Postsurgical changes within the cervical spine. The cardiac silhouette is borderline enlarged. No significant pulmonary vascular congestion. The lungs are clear of focal pulmonary opacity. No pleural effusion. No pneumothorax. No acute osseous abnormality. IMPRESSION: Borderline cardiomegaly without overt congestive heart failure or additional superimposed acute cardiopulmonary abnormality. Dictated by: Dictated on workstation # [id number]
[2017-07-31] MEDS ORDERED: meTOproloL SUCCINATE 50 MG (TOPROL XL) TAB PO SCH (20:45)
[2017-07-31 20:46] LABS: MYOGLOBIN SERUM 64.1 NG/ML (10.0-92.0)
[2017-07-31] MEDS ORDERED: morphine INJ 10 MG/ML 1ML (SYR OR VIAL) IVP STA (21:02)
[2017-07-31] MEDS ORDERED: LIDOCAINE 2% VISCOUS 15 ML UDC PO ONE (21:15)
[2017-07-31] MEDS ORDERED: ANTACID SUSP 30 ML UDC (MYLANTA) PO ONE (21:15)
[2017-07-31] MEDS: morphine INJ 4 MG/ML 1 ML (VIAL/SYRINGE) IV PRN (22:42)
[2017-07-31] MEDS: CATHETER FLUSH 10 ML SYR IV PRN (22:43)
[2017-07-31 23:00] VITALS: BP 167/79
[2017-07-31 23:15] VITALS: BP 127/91
[2017-07-31 23:30] VITALS: BP 134/67
[2017-07-31 23:45] VITALS: BP 162/79
[2017-07-31] MEDS: NITROGLYCERIN 0.4 MG SL TABS BTL 25'S SL PRN ×2 (23:52→23:59)
[2017-08-01] VITALS (11 sets, daily range): BP systolic 101–156; BP diastolic 51–88
[2017-08-01] MEDS: NITROGLYCERIN 0.4 MG SL TABS BTL 25'S SL PRN ×7 (00:12→08:24)
[2017-08-01] MEDS: ONDANSETRON 4 MG/2 ML (SDV) Z0FRAN IV PRN ×4 (00:20→18:37)
[2017-08-01] MEDS: CATHETER FLUSH 10 ML SYR IV PRN ×2 (00:21→04:27)
[2017-08-01] MEDS: CATHETER FLUSH 10 ML SYR IV SCH ×3 (03:27→21:42)
[2017-08-01] MEDS: morphine INJ 4 MG/ML 1 ML (VIAL/SYRINGE) IV PRN (03:27)
[2017-08-01 07:06] LABS: BASOPHILS % (AUTO) 0 % (0-10); EOSINOPHILS # (AUTO) 0.1 10^3/uL (0.0-0.3); EOSINOPHILS % (AUTO) 1 % (0-10); HEMATOCRIT 37 % (35-52); HEMOGLOBIN 12.3 G/DL (11.5-16.0); LYMPHOCYTES # (AUTO) 1.7 X 10^3 (1.0-4.0); LYMPHOCYTES % (AUTO) 27 % (12-44); MEAN CORPUSCULAR HEMOGLOBIN 33 PG (25-34); MEAN CORPUSCULAR HGB CONC 33 G/DL (32-36); MEAN CORPUSCULAR VOLUME 99 FL (80-99); MEAN PLATELET VOLUME 10.2 FL (7.4-10.4); MONOCYTES # (AUTO) 0.7 X 10^3 (0.0-1.0); MONOCYTES % (AUTO) 11 % (0-12); NEUTROPHILS # (AUTO) 3.7 X 10^3 (1.8-7.8); NEUTROPHILS % (AUTO) 60 % (42-75); PLATELET COUNT 276 10^3/uL (130-400); RED BLOOD COUNT 3.73 10^6/uL (4.35-5.85); RED CELL DISTRIBUTION WIDTH 13.2 % (10.0-14.5); WHITE BLOOD COUNT 6.1 10^3/uL (4.3-11.0)
[2017-08-01 07:29] LABS: ALANINE AMINOTRANSFERASE 335 U/L (0-55); ALBUMIN 3.7 GM/DL (3.2-4.5); ALKALINE PHOSPHATASE 143 U/L (40-136); BILIRUBIN,TOTAL 2.2 MG/DL (0.1-1.0); BUN/CREATININE RATIO 16; CALCIUM 8.5 MG/DL (8.5-10.1); CARBON DIOXIDE 24 MMOL/L (21-32); CHLORIDE 102 MMOL/L (98-107); CHOLESTEROL 150 MG/DL (< 200); CREATININE SERUM 0.81 MG/DL (0.60-1.30); GFR ESTIMATED > 60; GLUCOSE 85 MG/DL (70-105); HDL CHOLESTEROL 54 MG/DL (40-60); POTASSIUM 3.7 MMOL/L (3.6-5.0); SODIUM 136 MMOL/L (135-145); TRIGLYCERIDES 90 MG/DL (<150); VLDL CHOLESTEROL 18 MG/DL (5-40)
[2017-08-01] MEDS: meTOproloL SUCCINATE 50 MG (TOPROL XL) TAB PO SCH (08:07)
[2017-08-01] MEDS: ASPIRIN E.C. 325 MG (ECOTRIN) TABLET PO SCH (08:07)
[2017-08-01 08:13] LABS: AMYLASE 319 U/L (25-125); LIPASE 438 U/L (8-78)
--- NOTE | 2017-08-01 08:21 | Consultation-Cardiology ---
HPI-Cardiology Cardiology Consultation Date of Consultation 08/01/17 Date of Admission Time Seen by Provider: 08:17 Indication: Chest pain HPI 57 years old lady with history of zude-ks-dorntjyq coronary artery disease per cardiac catheterization 2008. Started having chest pain described it as dull in nature in the retrosternal area radiating to the upper chest and both arms. Having abdominal fullness. Nausea no vomiting. Denied any palpitation, denied any syncope or near syncopal episodes. Denied any claudications. No fever or chills. No syncope Home Medications & Allergies Allergies: Coded Allergies: Penicillins (Verified Allergy, Unknown, 03/20/17) codeine (Verified Allergy, Unknown, Pt has had Hydrocodone w/o issue, ) oxycodone (Verified Allergy, Unknown, Pt has had Hydrocodone w/o issue, ) Home Medication List Reviewed: Yes INZ-Onvdqq-Bnsxtl Hx Patient Social History Marital Status: Alcohol Use: Denies Use Recreational Drug Use: No Smoking Status: Never a Smoker Recent Foreign Travel: No Recent Infectious Disease Expo: No Recent Hopitalizations: No Physical Abuse Screen: No Sexual Abuse: No Immunizations Up To Date Tetanus Booster (TDap): Less than 5yrs Date of Pneumonia Vaccine: Apr 27, 2012 Date of Influenza Vaccine: Feb 01, 2013 Past Medical History Past medical history as discussed below Family Medical History Significant Family History: No Pertinent Family Hx Family History: Cancer 03 MOTHER 09 SISTER Congestive heart failure 03 FATHER Family history: Breast disease 03 MOTHER Family history: Cardiovascular disease 03 FATHER 09 SISTER Family history: Coronary thrombosis Family history: Diabetes mellitus 09 BROTHER Family history: Hypertension 03 FATHER 03 MOTHER 09 SISTER 09 SISTER 09 SISTER Family history: Thyroid disorder 09 SISTER Headache 09 SISTER Heart disease 03 FATHER Myocardial infarction 03 FATHER 09 BROTHER Constitutional: see HPI, malaise, weakness EENTM: see HPI Respiratory: see HPI; No cough; dyspnea on exertion; No hemoptysis, No orthopnea, No phlegm, No short of breath, No stridor, No wheezing, No other Cardiovascular: see HPI, chest pain; No edema, No Hx of Intervention, No palpitations, No syncope, No vascular heart diseas, No other Gastrointestinal: see HPI, abdominal pain, nausea Genitourinary: no symptoms reported, see HPI Musculoskeletal: no symptoms reported, see HPI Skin: no symptoms reported, see HPI Psychiatric/Neurological: No Symptoms Reported, See HPI Reviewed Test Results Reviewed Test Results Lab Laboratory Tests Test 07/31/17 20:10 08/01/17 06:50 Range/Units White Blood Count 9.7 6.1 4.3-11.0 10^3/uL Red Blood Count 4.00 L 3.73 L 4.35-5.85 10^6/uL Hemoglobin 13.4 12.3 11.5-16.0 G/DL Hematocrit 39 37 35-52 % Mean Corpuscular Volume 97 99 80-99 FL Mean Corpuscular Hemoglobin 34 33 25-34 PG Mean Corpuscular Hemoglobin Concent 35 33 32-36 G/DL Red Cell Distribution Width 13.4 13.2 10.0-14.5 % Platelet Count 324 276 130-400 10^3/uL Mean Platelet Volume 9.8 10.2 7.4-10.4 FL Neutrophils (%) (Auto) 63 60 42-75 % Lymphocytes (%) (Auto) 27 27 12-44 % Monocytes (%) (Auto) 8 11 0-12 % Eosinophils (%) (Auto) 1 1 0-10 % Basophils (%) (Auto) 0 0 0-10 % Neutrophils # (Auto) 6.1 3.7 1.8-7.8 X 10^3 Lymphocytes # (Auto) 2.6 1.7 1.0-4.0 X 10^3 Monocytes # (Auto) 0.8 0.7 0.0-1.0 X 10^3 Eosinophils # (Auto) 0.1 0.1 0.0-0.3 10^3/uL Basophils # (Auto) 0.0 0.0 0.0-0.1 10^3/uL Prothrombin Time 12.9 12.2-14.7 SEC INR Comment 1.0 0.8-1.4 Activated Partial Thromboplast Time 27 24-35 SEC D-Dimer 0.37 0.00-0.49 UG/ML Sodium Level 140 136 135-145 MMOL/L Potassium Level 3.2 L 3.7 3.6-5.0 MMOL/L Chloride Level 104 102 98-107 MMOL/L Carbon Dioxide Level 22 24 21-32 MMOL/L Anion Gap 14 10 5-14 MMOL/L Blood Urea Nitrogen 12 13 7-18 MG/DL Creatinine 0.84 0.81 0.60-1.30 MG/DL Estimat Glomerular Filtration Rate > 60 > 60 BUN/Creatinine Ratio 14 16 Glucose Level 101 85 70-105 MG/DL Calcium Level 9.2 8.5 8.5-10.1 MG/DL Magnesium Level 2.2 1.8-2.4 MG/DL Total Bilirubin 0.7 2.2 H 0.1-1.0 MG/DL Aspartate Amino Transf (AST/SGOT) 22 968 H 5-34 U/L Alanine Aminotransferase (ALT/SGPT) 22 335 H 0-55 U/L Alkaline Phosphatase 95 143 H 40-136 U/L Myoglobin 64.1 10.0-92.0 NG/ML Troponin I < 0.30 <0.30 NG/ML B-Type Natriuretic Peptide < 10.0 <100.0 PG/ML Total Protein 6.9 6.0 L 6.4-8.2 GM/DL Albumin 4.3 3.7 3.2-4.5 GM/DL Lipase 14 438 H 8-78 U/L Triglycerides Level 90 <150 MG/DL Cholesterol Level 150 < 200 MG/DL LDL Cholesterol Direct 79 1-129 MG/DL VLDL Cholesterol 18 5-40 MG/DL HDL Cholesterol 54 40-60 MG/DL Amylase Level 319 H 25-125 U/L Physical Exam Vital Signs Vital Signs - First Documented 07/31/17 07/31/17 19:47 22:30 Temp 98.8 Pulse 113 Resp 25 B/P (MAP) 201/104 (136) Pulse Ox 96 O2 Delivery Room Air O2 Flow Rate 2.00 Capillary Refill : Less Than 3 Seconds General Appearance: No Apparent Distress, WD/WN Eyes: Bilateral Eye Normal Inspection, Bilateral Eye PERRL, Bilateral Eye EOMI HEENT: PERRL/EOMI, TMs Normal, Normal ENT Inspection, Pharynx Normal Neck: Full Range of Motion, Normal Inspection, Non Tender, Supple, Carotid Bruit Respiratory: Chest Non Tender, Lungs Clear, Normal Breath Sounds, No Accessory Muscle Use, No Respiratory Distress Cardiovascular: Regular Rate, Rhythm, No Edema, No Gallop, No JVD, No Murmur, Normal Peripheral Pulses Gastrointestinal: Normal Bowel Sounds, No Organomegaly, No Pulsatile Mass, Non Tender, Soft Back: Normal Inspection, No CVA Tenderness, No Vertebral Tenderness Extremity: Normal Capillary Refill, Normal Inspection, Normal Range of Motion, Non Tender, No Calf Tenderness, No Pedal Edema Neurologic/Psychiatric: Alert, Oriented x3, No Motor/Sensory Deficits, Normal Mood/Affect Skin: Normal Color, Warm/Dry Lymphatic: No Adenopathy A/P-Cardiology Admission Diagnosis Chest pain Abdominal pain Nausea and vomiting Hypertension Assessment/Plan Chest pain nonspecific etiology, atypical in presentation. Planning to evaluate echocardiogram, had a cardiac catheterization done in 2008 which showed mild to moderate disease, her abdominal pain and elevated liver enzymes might be the cause of her underlying pain at this time. Abdominal fullness and nausea. Significant elevation in liver enzymes, elevation in amylase and lipase. History of cholecystectomy. I will evaluate ultrasound, consult Dr. Sampson, may require ERCP Hypertension, monitor blood pressure at this time. Peripheral edema. Continue to monitor at this time, has been on diuretic as an outpatient COPD/obstructive sleep apnea. BMI is 43, we discussed weight loss Clinical Quality Measures AMI/AHF: ASA po Prior to arrival: No DVT/VTE Risk/Contraindication: Risk Factor Score Per Nursin RFS Level Per Nursing on Admit: 2=Moderate ALEX POST MD August 01, 2017 08:21
--- NOTE | 2017-08-01 08:24 | Consultation ---
History of Present Illness History of Present Illness Patient Consulted On(vasiliy/time) 08/01/17 08:23 Date Seen by Provider: August 01, 2017 Time Seen by Provider: 08:23 Reason for Visit: Chest pain History of Present Illness Consult requested by Dr. Lepe for palpable abdominal mass and elevation of liver enzymes. Patient is a 57-year-old female who began having chest pain and epigastric abdominal pain yesterday around 5 p.m. Patient states it was burning and sharp and stabbing and moved in different directions. She is also having some nausea. Patient was concerned for heart issues and see evaluation in emergency department. Patient had liver enzymes and amylase and lipase increase. She states that it was his make things worse and nothing was seems to make things better. She has an ultrasound ordered. She has no other complaints at this time. She denies any fever sweats chills shortness of breath. Allergies and Home Medications Allergies Coded Allergies: Penicillins (Verified Allergy, Unknown, 03/20/17) codeine (Verified Allergy, Unknown, Pt has had Hydrocodone w/o issue, ) oxycodone (Verified Allergy, Unknown, Pt has had Hydrocodone w/o issue, ) Home Medications Acetaminophen 500 Mg Tablet, 1,000 MG PO Q6H PRN for PAIN-MILD, (Reported) Amlodipine Besylate 10 Mg Tablet, 10 MG PO DAILY, (Reported) Bacillus Coagulans 1 Each Tab.chew, 2 TAB PO DAILY, (Reported) Escitalopram Oxalate 20 Mg Tablet, 20 MG PO DAILY, (Reported) Furosemide 20 Mg Tablet, 20 MG PO DAILY, (Reported) Patient Home Medication List Home Medication List Reviewed: Yes Past Aaepwop-Hflmrq-Dgibgz Hx Patient Social History Alcohol Use: Denies Use Recreational Drug Use: No Smoking Status: Never a Smoker Recent Foreign Travel: No Contact w/Someone Who Travel: No Recent Infectious Disease Expo: No Recent Hopitalizations: No Physical Abuse Screen: No Sexual Abuse: No Immunizations Up To Date Tetanus Booster (TDap): Less than 5yrs PED Vaccines UTD: Yes Date of Pneumonia Vaccine: Apr 27, 2012 Date of Influenza Vaccine: Feb 01, 2013 Seasonal Allergies Seasonal Allergies: Yes Surgeries History of Surgeries: Yes (HIATAL HERNIA REPAIR,NECK) Surgeries: Gallbladder, Hysterectomy Respiratory History of Respiratory Disorde: Yes (ARDS-ON VENTILATOR X 10 DAYS 2012) Respiratory Disorders: Pneumonia, Sleep Apnea Cardiovascular History of Cardiac Disorders: Yes (ADMITTED WITH CHEST PAIN 07/31/17) Cardiac Disorders: Hypertension Neurological History of Neurological Disord: No Genitourinary History of Genitourinary Disor: No Gastrointestinal History of Gastrointestinal Di: Yes Gastrointestinal Disorders: Irritable Bowel Musculoskeletal History of Musculoskeletal Dis: Yes (STENOSIS) Musculoskeletal Disorders: Arthritis Endocrine History of Endocrine Disorders: No HEENT History of HEENT Disorders: No Cancer History of Cancer: No Psychosocial History of Psychiatric Problem: Yes Behavioral Health Disorders: Sleep Difficulties, Anxiety, Depression Integumentary History of Skin or Integumenta: No Blood Transfusions History of Blood Disorders: No Adverse Reaction to a Blood Tr: No Family Medical History Significant Family History: No Pertinent Family Hx Family Medial History: Cancer 03 MOTHER 09 SISTER Congestive heart failure 03 FATHER Family history: Breast disease 03 MOTHER Family history: Cardiovascular disease 03 FATHER 09 SISTER Family history: Coronary thrombosis Family history: Diabetes mellitus 09 BROTHER Family history: Hypertension 03 FATHER 03 MOTHER 09 SISTER 09 SISTER 09 SISTER Family history: Thyroid disorder 09 SISTER Headache 09 SISTER Heart disease 03 FATHER Myocardial infarction 03 FATHER 09 BROTHER Review of Systems-General Constitutional: no symptoms reported EENTM: no symptoms reported Respiratory: no symptoms reported Cardiovascular: see HPI, chest pain Gastrointestinal: see HPI Genitourinary: no symptoms reported : No Musculoskeletal: no symptoms reported Skin: no symptoms reported Psychiatric/Neurological: No Symptoms Reported Physical Exam-General Problems Physical Exam Vital Signs Vital Signs - First Documented 07/31/17 07/31/17 19:47 22:30 Temp 98.8 Pulse 113 Resp 25 B/P (MAP) 201/104 (136) Pulse Ox 96 O2 Delivery Room Air O2 Flow Rate 2.00 Capillary Refill : Less Than 3 Seconds General Appearance: no apparent distress HEENT: normal ENT inspection Neck: supple Respiratory: no respiratory distress, no accessory muscle use Cardiovascular: regular rate, rhythm Gastrointestinal: soft, tenderness (slight epigastric, seems to have sligh palpable mass or portion of liver ) Back: normal inspection Extremities: normal inspection, no pedal edema Neurologic/Psychiatric: balance wheel screw hole tapper II-XII nml as tested, no motor/sensory deficits, alert, normal mood/affect, oriented x 3 Skin: normal color, warm/dry Lymphatic: no adenopathy Data Review Labs Laboratory Tests 07/31/17 20:10: White Blood Count 9.7, Red Blood Count 4.00L, Hemoglobin 13.4, Hematocrit 39, Mean Corpuscular Volume 97, Mean Corpuscular Hemoglobin 34, Mean Corpuscular Hemoglobin Concent 35, Red Cell Distribution Width 13.4, Platelet Count 324, Mean Platelet Volume 9.8, Neutrophils (%) (Auto) 63, Lymphocytes (%) (Auto) 27, Monocytes (%) (Auto) 8, Eosinophils (%) (Auto) 1, Basophils (%) (Auto) 0, Neutrophils # (Auto) 6.1, Lymphocytes # (Auto) 2.6, Monocytes # (Auto) 0.8, Eosinophils # (Auto) 0.1, Basophils # (Auto) 0.0, Prothrombin Time 12.9, INR Comment 1.0, Activated Partial Thromboplast Time 27, D-Dimer 0.37, Sodium Level 140, Potassium Level 3.2L, Chloride Level 104, Carbon Dioxide Level 22, Anion Gap 14, Blood Urea Nitrogen 12, Creatinine 0.84, Estimat Glomerular Filtration Rate > 60, BUN/Creatinine Ratio 14, Glucose Level 101, Calcium Level 9.2, Magnesium Level 2.2, Total Bilirubin 0.7, Aspartate Amino Transf (AST/SGOT) 22, Alanine Aminotransferase (ALT/SGPT) 22, Alkaline Phosphatase 95, Myoglobin 64.1 , Troponin I < 0.30, B-Type Natriuretic Peptide < 10.0, Total Protein 6.9, Albumin 4.3, Lipase 14 08/01/17 06:50: White Blood Count 6.1, Red Blood Count 3.73L, Hemoglobin 12.3, Hematocrit 37, Mean Corpuscular Volume 99, Mean Corpuscular Hemoglobin 33, Mean Corpuscular Hemoglobin Concent 33, Red Cell Distribution Width 13.2, Platelet Count 276, Mean Platelet Volume 10.2, Neutrophils (%) (Auto) 60, Lymphocytes (%) (Auto) 27 , Monocytes (%) (Auto) 11, Eosinophils (%) (Auto) 1, Basophils (%) (Auto) 0, Neutrophils # (Auto) 3.7, Lymphocytes # (Auto) 1.7, Monocytes # (Auto) 0.7, Eosinophils # (Auto) 0.1, Basophils # (Auto) 0.0, Sodium Level 136, Potassium Level 3.7, Chloride Level 102, Carbon Dioxide Level 24, Anion Gap 10, Blood Urea Nitrogen 13, Creatinine 0.81, Estimat Glomerular Filtration Rate > 60, BUN/ Creatinine Ratio 16, Glucose Level 85, Calcium Level 8.5, Total Bilirubin 2.2H, Aspartate Amino Transf (AST/SGOT) 968H, Alanine Aminotransferase (ALT/SGPT) 335H , Alkaline Phosphatase 143H, Total Protein 6.0L, Albumin 3.7, Lipase 438H, Triglycerides Level 90, Cholesterol Level 150, LDL Cholesterol Direct 79, VLDL Cholesterol 18, HDL Cholesterol 54, Amylase Level 319H Assessment/Plan Assessment/Plan Assessment/Plan Chest pain, epigastric abdominal pain, transaminitis, pancreatitis with elevated amylase lipase Patient has ultrasound ordered. If no significant findings would consider CT scan with and without contrast for further evaluation. Repeat labs Possibility of retained stone or CBD obstruction could be present we'll get HIDA scan to further evaluate may need ERCP Clinical Quality Measures AMI/AHF: ASA po Prior to arrival: No DVT/VTE Risk/Contraindication: Risk Factor Score Per Nursin RFS Level Per Nursing on Admit: 2=Moderate HEIDI VILLALBA DO August 01, 2017 08:23
--- NOTE | 2017-08-01 09:43 | Diagnostic Imaging Report ---
Indication: Abdominal pain. Findings: Echodense liver is consistent with its fatty infiltration. No liver mass or bile duct dilatation. The pancreas was obscured by overlying bowel gas. The unobstructed right kidney is normal in size, cortical thickness and echotexture. There is no hydronephrosis. There is no ascites or fluid collection. Impression: Probable mild hepatic steatosis, no biliary dilatation, no ascites or fluid collection. Dictated by: Dictated on workstation # [id number]
[2017-08-01] MEDS ORDERED: FAMOTIDINE 20MG/2ML IV (PEPCID) IVP SCH (09:45)
--- NOTE | 2017-08-01 09:50 | History & Physical-Hospitalist ---
History of Present Illness HPI/Chief Complaint Pt is a 57yoCF with a PMH of HTN, ELENITA, and depression who presented to the ER with CC of chest and abdominal pain that she describes as burning in nature. She states this started suddenly around 5pm yesterday. She has never had similar symptoms. She checked her BP and states it was very high so that prompted her to seek evaluation. She denies any precipitating factors and had felt well. Her sister is at bedside who states that over the past 6 months she has noticed she has been more forgetful and even confused at time. She was admitted for ACS rule out and cardiology evaluation but this morning labs revealed acute live injury and hyperbilirubinemia and Dr Sampson of surgery was consulted. She states her pain has returned and previously the nitro and morphine helped but right now neither have helped. She also complains of anxiety. Source: patient, family Date Seen 08/01/17 Time Seen by Provider: 09:30 Attending Physician Lucas Rawls MD PCP Nick Jolley DO Referring Physician Date of Admission Jul 31, 2017 at 21:40 Home Medications & Allergies Home Medications Reviewed patient Home Medication Reconciliation performed by pharmacy medication reconciliations greenhouse technician and/or nursing. Patients Allergies have been reviewed. Allergies Allergies Coded Allergies Penicillins (Verified Allergy, Unknown, 03/20/17) codeine (Verified Allergy, Unknown, Pt has had Hydrocodone w/o issue, 03/21/17 ) oxycodone (Verified Allergy, Unknown, Pt has had Hydrocodone w/o issue, ) Past Zipjcuf-Diwqcv-Zmuxfs Hx Past Med/Social Hx: Reviewed Nursing Past Med/Soc Hx Patient Social History Marrital Status: Alcohol Use: Denies Use Recreational Drug Use: No Smoking Status: Never a Smoker Physical Abuse Screen: No Sexual Abuse: No Recent Foreign Travel: No Contact w/other who traveled: No Recent Hopitalizations: No Recent Infectious Disease Expo: No Immunizations Up To Date Tetanus Booster (TDap): Less than 5yrs Pediatric: Yes Date of Pneumonia Vaccine: Apr 27, 2012 Date of Influenza Vaccine: Feb 01, 2013 Seasonal Allergies Seasonal Allergies: Yes Past Medical History Surgeries: Abdominal (hernia), Gallbladder, Hysterectomy Currently Using CPAP: Yes Cardiac: Hypertension Hysterectomy Gastrointestinal: Abdominal Hernia, Irritable Bowel Musculoskeletal: Arthritis Psychosocial: Sleep Difficulties, Anxiety, Depression History of Blood Disorders: No Adverse Reaction to Blood [place]: No Family History Reviewed Nursing Family Hx Cancer 03 MOTHER 09 SISTER Congestive heart failure 03 FATHER Family history: Breast disease 03 MOTHER Family history: Cardiovascular disease 03 FATHER 09 SISTER Family history: Coronary thrombosis Family history: Diabetes mellitus 09 BROTHER Family history: Hypertension 03 FATHER 03 MOTHER 09 SISTER 09 SISTER 09 SISTER Family history: Thyroid disorder 09 SISTER Headache 09 SISTER Heart disease 03 FATHER Myocardial infarction 03 FATHER 09 BROTHER Heart Disease, Cancer, CVA, Diabetes Review of Systems Constitutional: No chills, No fever; weakness EENTM: hoarseness; No blurred vision, No double vision, No nose congestion, No throat pain Respiratory: cough; No dyspnea on exertion, No short of breath Cardiovascular: chest pain; No edema, No palpitations Gastrointestinal: abdominal pain; No constipation, No diarrhea, No jaundice; loss of appetite, nausea; No vomiting Genitourinary: No dysuria, No frequency Musculoskeletal: No joint pain, No muscle pain Skin: No lesions, No rash Psychiatric/Neurological: Anxiety, Depressed; Denies Headache, Denies Numbness , Denies Tingling Physical Exam Physical Exam Vital Signs Vital Signs - First Documented 07/31/17 07/31/17 19:47 22:30 Temp 98.8 Pulse 113 Resp 25 B/P (MAP) 201/104 (136) Pulse Ox 96 O2 Delivery Room Air O2 Flow Rate 2.00 Capillary Refill : Less Than 3 Seconds General Appearance: No Apparent Distress, WD/WN, Anxious HEENT: PERRL/EOMI, Moist Mucous Membranes; No Scleral Icterus (L), No Scleral Icterus (R) Neck: Non Tender, Supple; No JVD, No Thyromegaly Respiratory: Lungs Clear, No Respiratory Distress Cardiovascular: Regular Rate, Rhythm, No Murmur Gastrointestinal: Normal Bowel Sounds, No Pulsatile Mass, Non Tender, Soft, Distended, Hepatomegaly; No Rebound Extremity: Normal Capillary Refill, No Calf Tenderness, No Pedal Edema Neurologic/Psychiatric: Alert, Oriented x3, No Motor/Sensory Deficits, Normal Mood/Affect Skin: Normal Color, Warm/Dry; No Jaundice Results Results/Procedures Labs Laboratory Tests 07/31/17 20:10 08/01/17 06:50 Patient resulted labs reviewed. Imaging: Reviewed Imaging Report Assessment/Plan Admission Diagnosis Chest pain Admission Status: Inpatient Order (span 2 midnights) Reason for Inpatient Admission: acute liver failure Diagnosis/Problems Diagnosis/Problems (1) Transaminitis Status: Acute Assessment & Plan: very acute s/p cholescystectomy Liver usg- mild hepatic steatosis Discussed with Dr Sampson- will get CT abd/pelvis to further evaluation Appreciate surgical assistance (2) Chest pain Status: Acute Assessment & Plan: Does not sound cardiac in nature Will add famotidine Cardiology consulted, appreciate recs Monitor on telemetry Stress test ordered troponin negative Qualifiers: Chest pain type: unspecified Qualified Codes: R07.9 - Chest pain, unspecified (3) Pancreatitis Assessment & Plan: Mild lipase elevation Will keep NPO Start IVF Qualifiers: Chronicity: acute Pancreatitis type: other Acute pancreatitis complication: unspecified Qualified Codes: K85.80 - Other acute pancreatitis without necrosis or infection (4) HTN (hypertension) Status: Chronic Assessment & Plan: BP relatively well controlled Will trend Qualifiers: Hypertension type: essential hypertension Qualified Codes: I10 - Essential (primary) hypertension Clinical Quality Measures AMI/AHF: ASA po Prior to arrival: No DVT/VTE Risk/Contraindication: Risk Factor Score Per Nursin RFS Level Per Nursing on Admit: 2=Moderate CARLEY BENITES MD August 01, 2017 09:50
[2017-08-01] MEDS ORDERED: BACI1TAB3 PO (09:51)
[2017-08-01] MEDS ORDERED: ACET-2267 PO (09:51)
[2017-08-01] MEDS: raNItidine 50 MG/2 ML INJ (ZANTAC) IV SCH ×2 (10:39→21:38)
[2017-08-01] MEDS ORDERED: CATHETER FLUSH 10 ML SYR IV PRN (11:00)
[2017-08-01] MEDS ORDERED: IOHEXOL 350 MG/ML 100 ML (OMNIPAQUE 350) VIAL IV ONE (11:00)
[2017-08-01] MEDS ORDERED: NS 250 ML (IVPB) BAG IV ONE (11:00)
[2017-08-01] MEDS: 1/2 NS IV SOLUTION 1,000 ML IV SCH ×2 (11:09→21:38)
[2017-08-01] MEDS: LORazepam INJ 2 MG/ML (ATIVAN) VIAL IVP PRN (11:23)
--- NOTE | 2017-08-01 11:55 | Diagnostic Imaging Report ---
PROCEDURE: CT abdomen and pelvis with and without contrast. TECHNIQUE: Precontrast acquisitions were acquired through the abdomen and pelvis. Multiple contiguous axial images were obtained through the abdomen and pelvis after the administration of intravenous contrast. INDICATION: Chest pain, elevated liver function studies, palpable abdominal mass. FINDINGS: The hepatic density is mildly diminished, mild steatosis is suggested. The gallbladder surgically absent but there is no pathological dilatation of the biliary ducts and there is no evidence for liver mass. The spleen, adrenals and pancreas were unremarkable. The kidneys are unobstructed and normal aside from tiny exophytic cyst off the upper pole of the left kidney. The air-containing appendix normal. There is no diverticulitis. The uterus absent. There is no adnexal lesion, the urinary bladder normal. No abdominal wall fluid collection or defect. There was no mass or adenopathy. There is no ascites, abscess, hematoma or other fluid collection. There is no pneumatosis or free air. There is no focal inflammatory process. Lung bases and the osseous structures appear nonacute. IMPRESSION: A probable hepatic steatosis, previous cholecystectomy. No bowel, biliary or urinary tract obstruction. No hernia, fluid collection, mass, inflammatory process or acute abnormalities. Dictated by: Dictated on workstation # [id number]
[2017-08-01 15:14] LABS: ALANINE AMINOTRANSFERASE 483 U/L (0-55); ALBUMIN 3.8 GM/DL (3.2-4.5); ALKALINE PHOSPHATASE 184 U/L (40-136); AMYLASE 132 U/L (25-125); BILIRUBIN,TOTAL 1.5 MG/DL (0.1-1.0); BUN/CREATININE RATIO 15; CALCIUM 8.7 MG/DL (8.5-10.1); CARBON DIOXIDE 21 MMOL/L (21-32); CHLORIDE 105 MMOL/L (98-107); CREATININE SERUM 0.85 MG/DL (0.60-1.30); GFR ESTIMATED > 60; GLUCOSE 80 MG/DL (70-105); LIPASE 47 U/L (8-78); POTASSIUM 3.9 MMOL/L (3.6-5.0); SODIUM 137 MMOL/L (135-145); TOTAL PROTEIN 6.2 GM/DL (6.4-8.2)
[2017-08-01] MEDS: fentaNYL INJECTION 100 MCG/2 ML AMP IVP PRN (20:58)
[2017-08-01] MEDS: MELATONIN 3 MG TABLET PO SCH (21:38)
[2017-08-02] MEDS: ONDANSETRON 4 MG/2 ML (SDV) Z0FRAN IV PRN ×3 (01:14→20:48)
[2017-08-02] MEDS: fentaNYL INJECTION 100 MCG/2 ML AMP IVP PRN ×7 (01:15→23:39)
[2017-08-02 03:22] VITALS: BP 136/71
[2017-08-02 05:23] LABS: HEMOGLOBIN 11.8 G/DL (11.5-16.0); MEAN PLATELET VOLUME 9.8 FL (7.4-10.4); RED BLOOD COUNT 3.57 10^6/uL (4.35-5.85); RED CELL DISTRIBUTION WIDTH 13.3 % (10.0-14.5)
[2017-08-02 05:57] LABS: ALANINE AMINOTRANSFERASE 339 U/L (0-55); ALBUMIN 3.7 GM/DL (3.2-4.5); ALKALINE PHOSPHATASE 168 U/L (40-136); BILIRUBIN,TOTAL 0.8 MG/DL (0.1-1.0); BUN/CREATININE RATIO 19; CALCIUM 8.6 MG/DL (8.5-10.1); CARBON DIOXIDE 24 MMOL/L (21-32); CHLORIDE 105 MMOL/L (98-107); CREATININE SERUM 0.74 MG/DL (0.60-1.30); GFR ESTIMATED > 60; GLUCOSE 70 MG/DL (70-105); LIPASE 12 U/L (8-78); POTASSIUM 3.8 MMOL/L (3.6-5.0); SODIUM 139 MMOL/L (135-145); TOTAL PROTEIN 6.2 GM/DL (6.4-8.2)
[2017-08-02] MEDS: CATHETER FLUSH 10 ML SYR IV SCH ×3 (06:01→20:48)
[2017-08-02 07:19] VITALS: BP 132/67
[2017-08-02] MEDS: 1/2 NS IV SOLUTION 1,000 ML IV SCH ×3 (08:10→17:51)
[2017-08-02] MEDS: LORazepam INJ 2 MG/ML (ATIVAN) VIAL IVP PRN ×2 (09:13→16:19)
[2017-08-02] MEDS: meTOproloL SUCCINATE 50 MG (TOPROL XL) TAB PO SCH (09:14)
[2017-08-02] MEDS: ASPIRIN E.C. 325 MG (ECOTRIN) TABLET PO SCH (09:15)
[2017-08-02] MEDS: raNItidine 50 MG/2 ML INJ (ZANTAC) IV SCH ×2 (09:15→20:48)
--- NOTE | 2017-08-02 10:29 | Cardiology Progress Note ---
Subjective Date Seen by Provider: August 02, 2017 Time Seen by Provider: 10:26 Subjective/Events-last exam Patient is sitting up in bed. C/o back pain after undergoing HIDA scan earlier this morning. Denies any CP. Review of Systems General: No Night Sweats, No Fatigue, No Malaise HEENT: No Visual Changes, No Dysphasia Pulmonary: No Dyspnea, No Cough Cardiovascular: No: Chest Pain, Palpitations Gastrointestinal: Abdominal Pain; No: Nausea, Vomiting, Diarrhea, Constipation Genitourinary: No Dysuria, No Frequency Musculoskeletal: back pain; No: neck pain Neurological: No: Weakness, Numbness, Change in speech, Confusion Objective-Cardiology Exam Last Set of Vital Signs Vital Signs 08/02/17 08/02/17 07:19 08:00 Temp 97.2 Pulse 71 Resp 20 B/P (MAP) 132/67 (88) Pulse Ox 98 O2 Delivery Nasal Cannula O2 Flow Rate 2.00 Capillary Refill : Less Than 3 Seconds I&O Intake and Output 08/02/17 00:00 Intake Total 2080 ml Output Total 2100 ml Balance -20 ml Intake Oral 1080 ml IV Total 1000 ml Output Urine Total 2100 ml # Voids 1 General: Alert, Oriented X3, Cooperative HEENT: Atraumatic, PERRLA Neck: Supple, No JVD, No Thyromegaly Lungs: Clear to Auscultation, Normal Air Movement Heart: Regular Rate, Normal S1, Normal S2, No Murmurs Abdomen: Normal Bowel Sounds, Soft, No Masses, Other (diffulsely ttp) Extremities: No Clubbing, No Cyanosis, No Edema, Normal Pulses, No Tenderness/ Swelling Skin: No Rashes, No Significant Lesion Neuro: Normal Speech, Cranial Nerves 3-12 NL Psych/Mental Status: Mental Status NL, Mood NL Results Lab Laboratory Tests 08/01/17 14:45 08/02/17 05:06 A/P-Cardiology Admission Diagnosis Chest pain Abdominal pain Nausea and vomiting Hypertension Assessment/Plan Chest pain nonspecific etiology, atypical in presentation. Had a cardiac catheterization done in 2008 which showed mild to moderate disease,2D echo done yesterday WNL, EF 60%. Cardiac enzymes negative. I believe her abdominal pain and elevated liver enzymes might be the cause of her underlying pain at this time. Abdominal fullness and nausea. Significant elevation in liver enzymes, elevation in amylase and lipase. History of cholecystectomy. Dr. Sampson following. Underwent HIDA scan this morning, may require ERCP Hypertension, monitor blood pressure at this time. Peripheral edema. Continue to monitor at this time, has been on diuretic as an outpatient COPD/obstructive sleep apnea. BMI is 43, we discussed weight loss Clinical Quality Measures AMI/AHF: ASA po Prior to arrival: No DVT/VTE Risk/Contraindication: Risk Factor Score Per Nursin RFS Level Per Nursing on Admit: 2=Moderate XOCHITL GARCIA August 02, 2017 10:29
--- NOTE | 2017-08-02 11:49 | Progress Note-Hospitalist ---
Subjective HPI/CC On Admission Date Seen by Provider: August 02, 2017 Time Seen by Provider: 11:44 Pt is a 57yoCF with a PMH of HTN, ELENITA, and depression who presented to the ER with CC of chest and abdominal pain that she describes as burning in nature. She states this started suddenly around 5pm yesterday. She has never had similar symptoms. She checked her BP and states it was very high so that prompted her to seek evaluation. She denies any precipitating factors and had felt well. Her sister is at bedside who states that over the past 6 months she has noticed she has been more forgetful and even confused at time. She was admitted for ACS rule out and cardiology evaluation but this morning labs revealed acute live injury and hyperbilirubinemia and Dr Sampson of surgery was consulted. She states her pain has returned and previously the nitro and morphine helped but right now neither have helped. She also complains of anxiety. Subjective/Events-last exam Pt reports feeling much better. Would like to eat again. Objective Exam Vital Signs Vital Signs Date Time Temp Pulse Resp B/P (MAP) Pulse Ox O2 Delivery O2 Flow Rate FiO2 08/02/17 08:00 Nasal Cannula 2.00 08/02/17 07:19 97.2 71 20 132/67 (88) 98 Capillary Refill : Less Than 3 Seconds General Appearance: No Apparent Distress, WD/WN Respiratory: Lungs Clear Cardiovascular: Regular Rate, Rhythm, No Murmur Gastrointestinal: Normal Bowel Sounds, Non Tender, Soft Extremity: No Calf Tenderness, No Pedal Edema Neurologic/Psychiatric: Alert, Oriented x3 Results/Procedures Lab Laboratory Tests 08/01/17 14:45 08/02/17 05:06 Patient resulted labs reviewed. Imaging: Reviewed Imaging Report Assessment/Plan Assessment and Plan Assess & Plan/Chief Complaint transaminitis Diagnosis/Problems Diagnosis/Problems (1) Transaminitis Status: Acute Assessment & Plan: Improving s/p cholescystectomy Liver usg- mild hepatic steatosis CT abd/pelvis normal HIDA scan pending Appreciate surgical assistance (2) Chest pain Status: Acute Assessment & Plan: Does not sound cardiac in nature Continue famotidine Cardiology consulted, appreciate recs Monitor on telemetry troponin negative Qualifiers: Chest pain type: unspecified Qualified Codes: R07.9 - Chest pain, unspecified (3) Pancreatitis Assessment & Plan: Resolved started CLD Qualifiers: Chronicity: acute Pancreatitis type: other Acute pancreatitis complication: unspecified Qualified Codes: K85.80 - Other acute pancreatitis without necrosis or infection (4) HTN (hypertension) Status: Chronic Assessment & Plan: BP relatively well controlled Will trend Qualifiers: Hypertension type: essential hypertension Qualified Codes: I10 - Essential (primary) hypertension Clinical Quality Measures AMI/AHF: ASA po Prior to arrival: No DVT/VTE Risk/Contraindication: Risk Factor Score Per Nursin RFS Level Per Nursing on Admit: 2=Moderate CARLEY BENITES MD August 02, 2017 11:49
[2017-08-02 12:00] VITALS: BP 127/61
--- NOTE | 2017-08-02 12:11 | Diagnostic Imaging Report ---
EXAMINATION: Hepatobiliary scan with ejection fraction. INDICATION: Epigastric pain. TECHNIQUE: This study was performed following administration of 5.42 mCi of Choletec. By history, the patient has had a prior cholecystectomy. FINDINGS: On this study, there is uptake and excretion of the radiotracer by the liver. The common bile duct is not dilated. There is no abnormal extension of the radiotracer beyond the biliary system to suggest a leak. There is a tubular area of radiotracer interposed between the common bile duct and the biliary tree on the 25 and 30 minute images. This is of uncertain etiology but unlikely related to a leak. In reviewing the CT abdomen/pelvis exam performed on 08/01/2017, there is no abnormal fluid collection in the gallbladder fossa. Also, in reviewing the CT exam, there did appear to be an asymmetric 2.2 x 2.5 cm density in the left breast (image 1 of 85/series 3). This finding may merely be secondary to fibroglandular tissue alone. According to our records, the patient has not had a mammogram. If the patient has had a recent (within the last year) mammogram elsewhere, then no further imaging will be necessary; however, of the patient has not had a recent mammogram, then mammography would be recommended when the patient's condition permits. IMPRESSION: 1. There is uptake and excretion of the radiotracer by the liver. The common bile duct is not dilated and there is no extravasation of the contrast to suggest a bile leak. 2. The asymmetric soft tissue density in the left breast is of uncertain etiology. Considerations and recommendations as above. Dictated by: Dictated on workstation # [id number]
--- NOTE | 2017-08-02 15:16 | Cardiology Progress Note ---
Subjective Date Seen by Provider: August 02, 2017 Time Seen by Provider: 15:15 Subjective/Events-last exam Patient is laying down in bed, feeling better, abdominal pain is still present with mild discomfort, had mild chest discomfort. Liver enzymes are improving. Review of Systems General: No Chills, No Night Sweats, No Fatigue, No Malaise, No Appetite, No Other HEENT: No Head Aches, No Visual Changes, No Eye Pain, No Ear Pain, No Dysphasia , No Sinus Congestion, No Post Nasal Drip, No Sore Throat, No Other Pulmonary: No Dyspnea, No Cough, No Pleuritic Chest Pain, No Other Cardiovascular: No: Chest Pain, Palpitations, Orthopnea, Paroxysmal Noc. Dyspnea, Edema, Lt Headedness, Other Objective-Cardiology Exam Last Set of Vital Signs Vital Signs 08/02/17 08/02/17 08:00 12:00 Temp 96.2 Pulse 72 Resp 18 B/P (MAP) 127/61 (83) Pulse Ox 95 O2 Delivery Room Air O2 Flow Rate 2.00 Capillary Refill : Less Than 3 Seconds I&O Intake and Output 08/02/17 00:00 Intake Total 2080 ml Output Total 2100 ml Balance -20 ml Intake Oral 1080 ml IV Total 1000 ml Output Urine Total 2100 ml # Voids 1 General: Alert, Oriented X3, Cooperative HEENT: Atraumatic, PERRLA Neck: Supple, No JVD, No Thyromegaly Lungs: Clear to Auscultation, Normal Air Movement Heart: Regular Rate, Normal S1, Normal S2, No Murmurs Abdomen: Normal Bowel Sounds, Soft, No Masses, Other (diffulsely ttp) Extremities: No Clubbing, No Cyanosis, No Edema, Normal Pulses, No Tenderness/ Swelling Skin: No Rashes, No Significant Lesion Neuro: Normal Speech, Cranial Nerves 3-12 NL Psych/Mental Status: Mental Status NL, Mood NL Results Lab Laboratory Tests 08/02/17 05:06 A/P-Cardiology Admission Diagnosis Chest pain Abdominal pain Nausea and vomiting Hypertension Assessment/Plan Chest pain nonspecific etiology, atypical in presentation. Had a cardiac catheterization done in 2008 which showed mild to moderate disease, 2D echo done yesterday WNL, EF 60%. Cardiac enzymes negative. I believe her abdominal pain and elevated liver enzymes might be the cause of her underlying pain at this time. Planning to evaluate stress test as an outpatient. Abdominal fullness and nausea. Significant elevation in liver enzymes, elevation in amylase and lipase. History of cholecystectomy. Dr. Sampson following. Underwent HIDA scan this morning, may require ERCP Hypertension, monitor blood pressure at this time. Peripheral edema. Continue to monitor at this time, has been on diuretic as an outpatient COPD/obstructive sleep apnea. BMI is 43, we discussed weight loss Clinical Quality Measures AMI/AHF: ASA po Prior to arrival: No DVT/VTE Risk/Contraindication: Risk Factor Score Per Nursin RFS Level Per Nursing on Admit: 2=Moderate ALEX POST MD August 02, 2017 15:16
[2017-08-02 15:25] VITALS: BP 170/80
--- NOTE | 2017-08-02 16:02 | Progress Note ---
Subjective Date Seen by Provider: August 02, 2017 Time Seen by Provider: 08:00 Subjective/Events-last exam Patient feeling better. She's not having any significant nausea. Some slight discomfort but very minimal in the epigastric region. She is nothing by mouth currently. Her labs have improved she's going for HIDA scan today to look for any obstruction. Denies any fever sweats chills shortness of breath or chest pain. Objective Exam Vital Signs Date Time Temp Pulse Resp B/P (MAP) Pulse Ox O2 Delivery O2 Flow Rate FiO2 08/02/17 15:25 96.6 72 18 170/80 (110) 96 Room Air 08/02/17 12:00 96.2 72 18 127/61 (83) 95 Room Air 08/02/17 08:00 Nasal Cannula 2.00 08/02/17 07:19 97.2 71 20 132/67 (88) 98 Room Air 08/02/17 07:00 69 08/02/17 03:22 97.1 71 18 136/71 (92) 98 Nasal Cannula 2.00 08/02/17 01:00 75 08/02/17 00:00 97.0 08/01/17 23:56 96.5 65 18 129/70 (89) 95 Nasal Cannula 2.00 08/01/17 21:00 Nasal Cannula 2.00 08/01/17 19:11 97.0 65 22 108/63 (78) 96 Room Air 08/01/17 19:00 67 I & O 08/02/17 07:00 Intake Total 1180 ml Output Total 2700 ml Balance -1520 ml Capillary Refill : Less Than 3 Seconds General Appearance: No Apparent Distress, WD/WN HEENT: PERRL/EOMI; No Scleral Icterus (L), No Scleral Icterus (R) Neck: Non Tender, Supple; No JVD, No Thyromegaly Respiratory: Lungs Clear Cardiovascular: Regular Rate, Rhythm, No Murmur Gastrointestinal: non tender, soft Extremity: No Calf Tenderness, No Pedal Edema Neurologic/Psychiatric: Alert, Oriented x3 Skin: Normal Color, Warm/Dry; No Jaundice Lymphatic: No Adenopathy Results Lab Laboratory Tests 08/02/17 05:06: White Blood Count 6.0, Red Blood Count 3.57L, Hemoglobin 11.8, Hematocrit 36, Mean Corpuscular Volume 100H, Mean Corpuscular Hemoglobin 33, Mean Corpuscular Hemoglobin Concent 33, Red Cell Distribution Width 13.3, Platelet Count 250, Mean Platelet Volume 9.8, Sodium Level 139, Potassium Level 3.8, Chloride Level 105, Carbon Dioxide Level 24, Anion Gap 10, Blood Urea Nitrogen 14, Creatinine 0.74, Estimat Glomerular Filtration Rate > 60, BUN/Creatinine Ratio 19, Glucose Level 70, Calcium Level 8.6, Total Bilirubin 0.8, Aspartate Amino Transf (AST/ SGOT) 321H, Alanine Aminotransferase (ALT/SGPT) 339H, Alkaline Phosphatase 168H , Total Protein 6.2L, Albumin 3.7, Lipase 12 Assessment/Plan Assessment/Plan Assessment/Plan Chest pain, epigastric abdominal pain, transaminitis, pancreatitis with elevated amylase lipase Patient with those findings by CT scan, she she has a normal HIDA scan except for a area of the left breast. If she has not had any mammograms in the last year would recommend outpatient mammogram Patient's labs improving okay with starting clear liquid diet No surgical intervention. Clinical Quality Measures AMI/AHF: ASA po Prior to arrival: No DVT/VTE Risk/Contraindication: Risk Factor Score Per Nursin RFS Level Per Nursing on Admit: 2=Moderate HEIDI VILLALBA DO August 02, 2017 16:02
[2017-08-02 19:57] VITALS: BP 162/76
[2017-08-02] MEDS: MELATONIN 3 MG TABLET PO SCH (20:48)
[2017-08-03] VITALS: BP 143/61
[2017-08-03] MEDS: LORazepam INJ 2 MG/ML (ATIVAN) VIAL IVP PRN (01:12)
[2017-08-03] MEDS: ONDANSETRON 4 MG/2 ML (SDV) Z0FRAN IV PRN (01:37)
[2017-08-03] MEDS: fentaNYL INJECTION 100 MCG/2 ML AMP IVP PRN ×3 (02:30→09:19)
[2017-08-03 04:35] LABS: BASOPHILS % (AUTO) 0 % (0-10); EOSINOPHILS # (AUTO) 0.1 10^3/uL (0.0-0.3); EOSINOPHILS % (AUTO) 2 % (0-10); HEMATOCRIT 35 % (35-52); HEMOGLOBIN 11.2 G/DL (11.5-16.0); LYMPHOCYTES # (AUTO) 1.7 X 10^3 (1.0-4.0); LYMPHOCYTES % (AUTO) 31 % (12-44); MEAN CORPUSCULAR HEMOGLOBIN 33 PG (25-34); MEAN CORPUSCULAR HGB CONC 32 G/DL (32-36); MEAN CORPUSCULAR VOLUME 101 FL (80-99); MEAN PLATELET VOLUME 10.7 FL (7.4-10.4); MONOCYTES # (AUTO) 0.6 X 10^3 (0.0-1.0); MONOCYTES % (AUTO) 12 % (0-12); NEUTROPHILS # (AUTO) 3.1 X 10^3 (1.8-7.8); NEUTROPHILS % (AUTO) 56 % (42-75); PLATELET COUNT 245 10^3/uL (130-400); RED BLOOD COUNT 3.43 10^6/uL (4.35-5.85); RED CELL DISTRIBUTION WIDTH 13.3 % (10.0-14.5); WHITE BLOOD COUNT 5.5 10^3/uL (4.3-11.0)
[2017-08-03 04:52] VITALS: BP 127/63
[2017-08-03] MEDS: CATHETER FLUSH 10 ML SYR IV SCH (05:05)
[2017-08-03 05:20] LABS: ALANINE AMINOTRANSFERASE 201 U/L (0-55); ALBUMIN 3.4 GM/DL (3.2-4.5); ALKALINE PHOSPHATASE 136 U/L (40-136); BILIRUBIN,TOTAL 0.3 MG/DL (0.1-1.0); BUN/CREATININE RATIO 16; CARBON DIOXIDE 23 MMOL/L (21-32); CHLORIDE 106 MMOL/L (98-107); CREATININE SERUM 0.83 MG/DL (0.60-1.30); GFR ESTIMATED > 60; GLUCOSE 122 MG/DL (70-105); POTASSIUM 3.9 MMOL/L (3.6-5.0); SODIUM 139 MMOL/L (135-145); TOTAL PROTEIN 5.5 GM/DL (6.4-8.2)
[2017-08-03] MEDS: 1/2 NS IV SOLUTION 1,000 ML IV SCH (05:45)
--- NOTE | 2017-08-03 07:03 | Cardiology Progress Note ---
Subjective Date Seen by Provider: August 03, 2017 Time Seen by Provider: 07:00 Subjective/Events-last exam Patient is in bed, complaining of back and legs pain, reporting history of back and neck pain in the past for which she has been taking Tylenol frequently Review of Systems General: No Chills, No Night Sweats; Fatigue, Malaise; No Appetite, No Other HEENT: No Head Aches, No Visual Changes, No Eye Pain, No Dysphasia, No Sinus Congestion, No Post Nasal Drip, No Sore Throat, No Other Pulmonary: No Dyspnea, No Cough, No Pleuritic Chest Pain, No Other Cardiovascular: No: Chest Pain, Palpitations, Orthopnea, Paroxysmal Noc. Dyspnea, Edema, Lt Headedness, Other Objective-Cardiology Exam Last Set of Vital Signs Vital Signs 08/03/17 04:52 Temp 97.2 Pulse 68 Resp 18 B/P (MAP) 127/63 (84) Pulse Ox 96 O2 Delivery Nasal Cannula O2 Flow Rate 2.00 Capillary Refill : Less Than 3 Seconds I&O Intake and Output 08/03/17 00:00 Intake Total 4220 ml Output Total 3500 ml Balance 720 ml Intake Oral 2220 ml IV Total 2000 ml Output Urine Total 3500 ml # Bowel Movements 2 General: Alert, Oriented X3, Cooperative HEENT: Atraumatic, PERRLA Neck: Supple, No JVD, No Thyromegaly Lungs: Clear to Auscultation, Normal Air Movement Heart: Regular Rate, Normal S1, Normal S2, No Murmurs Abdomen: Normal Bowel Sounds, Soft, No Masses, Other (diffulsely ttp) Extremities: No Clubbing, No Cyanosis, No Edema, Normal Pulses, No Tenderness/ Swelling Skin: No Rashes, No Significant Lesion Neuro: Normal Speech, Cranial Nerves 3-12 NL Psych/Mental Status: Mental Status NL, Mood NL Results Lab Laboratory Tests 08/03/17 04:06 A/P-Cardiology Admission Diagnosis Chest pain Abdominal pain Nausea and vomiting Hypertension Assessment/Plan Chest pain nonspecific etiology, atypical in presentation. Had a cardiac catheterization done in 2008 which showed mild to moderate disease, 2D echo done yesterday WNL, EF 60. Cardiac enzymes negative. I believe her abdominal pain and elevated liver enzymes might be the cause of her underlying pain at this time. Planning to evaluate stress test as an outpatient. Abdominal fullness and nausea. Significant elevation in liver enzymes, elevation in amylase and lipase. History of cholecystectomy. Patient was taking Tylenol frequently at home for her back and neck pain, Possible Tylenol toxicity, She is improving at this time, educated about limiting her pain medication intake Hypertension, Good control, continue current meds and monitor blood pressure Peripheral edema. Continue to monitor at this time, has been on diuretic as an outpatient COPD/obstructive sleep apnea. BMI is 43, we discussed weight loss Clinical Quality Measures AMI/AHF: ASA po Prior to arrival: No DVT/VTE Risk/Contraindication: Risk Factor Score Per Nursin RFS Level Per Nursing on Admit: 2=Moderate ALEX POST MD August 03, 2017 07:03
[2017-08-03 08:00] VITALS: BP 117/79
[2017-08-03] MEDS: meTOproloL SUCCINATE 50 MG (TOPROL XL) TAB PO SCH (09:19)
[2017-08-03] MEDS: ASPIRIN E.C. 325 MG (ECOTRIN) TABLET PO SCH (09:19)
[2017-08-03] MEDS: raNItidine 50 MG/2 ML INJ (ZANTAC) IV SCH (09:19)
[2017-08-03] MEDS ORDERED: RANI150T90 PO (09:28)
[2017-08-03] MEDS ORDERED: METO-370 PO (09:28)
[2017-08-03] MEDS ORDERED: ACET325C5 PO (09:38)
--- NOTE | 2017-08-03 09:40 | Discharge Inst-Simple/Standard ---
Discharge Inst-Standard Discharge Medications New, Converted or Re-Newed RX: Call to Patients Pharmacy Patient Instructions/Follow Up Plan of Care/Instructions/FU: Please continue to take your medications as written. Please follow up with Dr Lepe and Dr Jolley as scheduled. Please do not take Tylenol more often than 3 times a day. Continue on clear liquids for the next couple of days and then slowly reintroduce bland foods. Activity as Tolerated: Yes Discharge Diet: Liquid Diet Return to The Hospital For: Chest pain, SOB, or if you feel you are getting worse. CARLEY BENITES MD August 03, 2017 9:40 am
--- NOTE | 2017-08-03 09:47 | Discharge Summary-Hospitalist ---
Diagnosis/Chief Complaint Date of Admission August 01, 2017 at 2:44 pm Date of Discharge Admission Diagnosis Chest pain Discharge Diagnosis transaminitis (1) Transaminitis Status: Acute Assessment & Plan: Improving s/p cholescystectomy Liver usg- mild hepatic steatosis CT abd/pelvis normal Appreciate surgical assistance (2) Chest pain Status: Resolved Assessment & Plan: Does not sound cardiac in nature Continue famotidine Cardiology consulted, appreciate recs troponin negative To follow up for stress test with Dr lepe in 1 week (3) Pancreatitis Assessment & Plan: Resolved started CLD (4) HTN (hypertension) Status: Chronic Assessment & Plan: BP relatively well controlled Will trend Discharge Summary Procedures/Consulations Dr Sampson- Surgery Dr Lepe- Cardiology Discharge Physical Exam Allergies: Coded Allergies: Penicillins (Verified Allergy, Unknown, 03/20/17) codeine (Verified Allergy, Unknown, Pt has had Hydrocodone w/o issue, ) oxycodone (Verified Allergy, Unknown, Pt has had Hydrocodone w/o issue, ) Vitals & I&Os Vital Signs Date Time Temp Pulse Resp B/P (MAP) Pulse Ox O2 Delivery O2 Flow Rate FiO2 08/03/17 11:07 08/03/17 09:41 Room Air 08/03/17 08:00 97.7 72 20 94 08/03/17 04:52 2.00 General Appearance: Alert, Oriented X3 Respiratory: Clear to Auscultation Cardiovascular: Regular Rate Hospital Course Pt was admitted due to chest pain but was found to have an acute liver injury. She underwent right upper quadrant usg, CT abd/pelvis, and HIDA scan without any abnormalities noted. Her pain resolved with treatment of GERD and she was scheduled for an outpatient stress and follow up with Dr Lepe. Her liver enzymes improved as well. On day of discharge she felt well, was tolerating her diet, and was requesting DC home. I did call and update the nurse at her PCP ( Dr Jolley's) office of the hospital stay and need for follow up labs and visit. I also informed her of the HIDA incidental breast finding to ensure that adequate breast imaging is ordered. Labs (last 24 hrs) Patient resulted labs reviewed. Pending Labs Imaging: Reviewed Imaging Report Discussion & Recommendations Discharge Planning: >30 minutes discharge planning Discharge Home Medications: Active Scripts Active Tylenol (Acetaminophen) 325 Mg Capsule 325 Mg PO Q8H PRN 30 Days Acid Interactive Multimedia [employer]er (RANITIDINE) (Ranitidine HCl) 150 Mg Tablet 150 Mg PO BID Metoprolol Succinate 50 Mg Tab.er.24h 50 Mg PO DAILY Reported Probiotic (Bacillus Coagulans) 1 Each Tab.chew 2 Tab PO DAILY Escitalopram Oxalate 20 Mg Tablet 20 Mg PO DAILY Furosemide 20 Mg Tablet 20 Mg PO DAILY Instructions to patient/family Please see electronic discharge instructions given to patient. Clinical Quality Measures AMI/AHF: ASA po Prior to arrival: No DVT/VTE Risk/Contraindication: Risk Factor Score Per Nursin RFS Level Per Nursing on Admit: 2=Moderate Copy Copies To 1: YAZ JOLLEY DO Problem Qualifiers (1) Chest pain: Chest pain type: unspecified Qualified Codes: R07.9 - Chest pain, unspecified (2) Pancreatitis: Chronicity: acute Pancreatitis type: other Acute pancreatitis complication: unspecified Qualified Codes: K85.80 - Other acute pancreatitis without necrosis or infection (3) HTN (hypertension): Hypertension type: essential hypertension Qualified Codes: I10 - Essential ( primary) hypertension CARLEY BENITES MD August 03, 2017 09:47
--- NOTE | 2017-08-03 17:54 | Progress Note ---
Subjective Date Seen by Provider: August 03, 2017 Time Seen by Provider: 07:42 Subjective/Events-last exam Patient feeling well. She is not having any epigastric or chest pain at this time. Labs improving. Tolerating diet. Wanting to go home. Hida result discussed, she knows about changes in left breast and is in close follow up of breast. She states studies done in [place], [place]. Objective Exam Vital Signs Date Time Temp Pulse Resp B/P (MAP) Pulse Ox O2 Delivery O2 Flow Rate FiO2 08/03/17 11:07 08/03/17 09:41 Room Air 08/03/17 08:00 97.7 72 20 117/79 (92) 94 Room Air 08/03/17 07:00 67 08/03/17 04:52 97.2 68 18 127/63 (84) 96 Nasal Cannula 2.00 08/03/17 01:00 74 08/03/17 00:00 97.8 69 18 143/61 (88) 96 Nasal Cannula 2.00 08/02/17 20:30 Nasal Cannula 2.00 08/02/17 19:57 96.9 82 18 162/76 (104) 95 Room Air 08/02/17 19:00 71 I & O 08/03/17 07:00 Intake Total 5720 ml Output Total 2900 ml Balance 2820 ml Capillary Refill : Less Than 3 Seconds General Appearance: No Apparent Distress, WD/WN HEENT: PERRL/EOMI; No Scleral Icterus (L), No Scleral Icterus (R) Neck: Non Tender, Supple; No JVD, No Thyromegaly Respiratory: Lungs Clear Cardiovascular: Regular Rate, Rhythm, No Murmur Gastrointestinal: non tender, soft Extremity: No Calf Tenderness, No Pedal Edema Neurologic/Psychiatric: Alert, Oriented x3 Skin: Normal Color, Warm/Dry; No Jaundice Lymphatic: No Adenopathy Results Lab Laboratory Tests 08/03/17 04:06: White Blood Count 5.5, Red Blood Count 3.43L, Hemoglobin 11.2L, Hematocrit 35, Mean Corpuscular Volume 101H, Mean Corpuscular Hemoglobin 33, Mean Corpuscular Hemoglobin Concent 32, Red Cell Distribution Width 13.3, Platelet Count 245, Mean Platelet Volume 10.7H, Neutrophils (%) (Auto) 56, Lymphocytes (%) (Auto) 31 , Monocytes (%) (Auto) 12, Eosinophils (%) (Auto) 2, Basophils (%) (Auto) 0, Neutrophils # (Auto) 3.1, Lymphocytes # (Auto) 1.7, Monocytes # (Auto) 0.6, Eosinophils # (Auto) 0.1, Basophils # (Auto) 0.0, Sodium Level 139, Potassium Level 3.9, Chloride Level 106, Carbon Dioxide Level 23, Anion Gap 10, Blood Urea Nitrogen 13, Creatinine 0.83, Estimat Glomerular Filtration Rate > 60, BUN/ Creatinine Ratio 16, Glucose Level 122H, Calcium Level 8.0L, Total Bilirubin 0.3 , Aspartate Amino Transf (AST/SGOT) 106H, Alanine Aminotransferase (ALT/SGPT) 201H, Alkaline Phosphatase 136, Total Protein 5.5L, Albumin 3.4 Assessment/Plan Assessment/Plan Assessment/Plan Chest pain, epigastric abdominal pain, transaminitis, pancreatitis with elevated amylase lipase Doing well and continues to improve. No surgical intervention. Patient knows of breast changes and states has follow up plans with PCP. Okay to dc from surgical standpoint. Clinical Quality Measures AMI/AHF: ASA po Prior to arrival: No DVT/VTE Risk/Contraindication: Risk Factor Score Per Nursin RFS Level Per Nursing on Admit: 2=Moderate HEIDI VILLALBA DO August 03, 2017 17:54
== END 2017-08-03 11:07 | disposition home or self-care (01) | DRG 441 ==
LOC: EDUNIT# 19:41 → ER 19:43 → 4TH 21:40 → UNDOADMOB 21:40 → 4TH 22:18 → INTOOBSV 08-01 14:44 → OBSVTOIN 08-01 14:44 → UNDODISIN 08-03 11:07
PROVIDERS: ADMIT Internal Medicine; ATTEND Internal Medicine
DX: K72.00 Acute and subacute hepatic failure without coma (principal); K85.90 Acute pancreatitis without necrosis or infection, unspecified; K76.0 Fatty (change of) liver, not elsewhere classified; R07.9 Chest pain, unspecified; Z68.41 Body mass index [BMI] 40.0-44.9, adult; M79.622 Pain in left upper arm; I25.10 Atherosclerotic heart disease of native coronary artery without angina pectoris; I10 Essential (primary) hypertension; G47.33 Obstructive sleep apnea (adult) (pediatric); J44.9 Chronic obstructive pulmonary disease, unspecified; F41.9 Anxiety disorder, unspecified; F32.9 Major depressive disorder, single episode, unspecified; K58.9 Irritable bowel syndrome, unspecified; M19.91 Primary osteoarthritis, unspecified site; J30.2 Other seasonal allergic rhinitis; R60.0 Localized edema; K21.9 Gastro-esophageal reflux disease without esophagitis; Z87.01 Personal history of pneumonia (recurrent); Z98.890 Other specified postprocedural states
CPT/HCPCS: 36415; 71045; 74178; 76705; 78226; 80053; 80061; 82150; 83690; 83735; 83874; 83880; 84484; 85025; 85027; 85379; 85610; 85730; 93005; 93041; 93306; 96374; G0378

== ENCOUNTER → 2017-08-07 | Outpatient (CLI) | payer MEDICARE, OTHER ==
[~2017-08-07] MED LIST changes: +ACET-2267 PO; +ACET325C5 PO; +BACI1TAB3 PO; +CATHETER FLUSH 10 ML SYR IV PRN; +METO-370 PO; +RANI150T90 PO; +REGADENOSON 0.4 MG/5 ML SYR (LEXISCAN) IV ONE
[2017-08-07 09:05] VITALS: BP 168/91
[2017-08-07 09:07] VITALS: BP 168/96
--- NOTE | 2017-08-07 22:18 | STRESS TEST ---
DATE OF SERVICE: 08/07/2017 LEXISCAN MYOVIEW STRESS TEST REPORT REFERRING PHYSICIAN: Dr. Nick Jolley. Baseline heart rate is 61, baseline blood pressure 168/90. Baseline EKG is sinus rhythm with no ischemic changes. In summary, the patient received 10.26 mCi of technetium-99 Myoview and the resting images were obtained. Then, the patient received 0.4 mg of Lexiscan followed by 28.8 mCi of technetium-99 Myoview. Throughout the test, there were no EKG changes. The resting and stress images were reviewed and compared in the short axis, horizontal long axis, and vertical long axis views. Review of the images showed breast attenuation with mild decreased uptake involving the mid to apical anterior septum with mild reversibility. SSS is 4, SDS is 4, TID value 1.01. On the gated images, the left ventricle appeared to be normal size with normal contractility. Calculated ejection fraction 78%. CONCLUSION: 1. The patient tolerated Lexiscan well. 2. Breast attenuation affecting the quality of the images, mild decreased uptake at the mid to apical anterior septum with mild reversibility, no significant ischemia or infarction on SPECT images. 3. Normal left ventricular size with normal contractility. Calculated ejection fraction 78%. Job ID: [id number] DocumentID: [id number] Dictated Date: 08/07/2017 16:39:11 Microcomputer Technician Date: 08/07/2017 22:18:03 Dictated By: ALEX POST MD
== END ==
LOC: CARD 06:56
PROVIDERS: ATTEND Internal Medicine Cardiovascular Disease
DX: I10 Essential (primary) hypertension (principal); R07.89 Other chest pain
CPT/HCPCS: 78452; 93017

== ENCOUNTER 2017-12-18 05:40 | Outpatient (CLI) | payer MEDICARE ==
[~2017-12-18] VITALS: Ht 152.4 cm; Wt 106.4 kg
[~2017-12-18 05:40] MED LIST changes: -AMLO10TA2 PO; +AMLO10TA6 PO; -CATHETER FLUSH 10 ML SYR IV PRN; -REGADENOSON 0.4 MG/5 ML SYR (LEXISCAN) IV ONE
[2017-12-18] MEDS ORDERED: PANT40TA3 PO (09:06)
[2017-12-18] MEDS ORDERED: LISI-552 PO (09:06)
== END 2017-12-18 09:10 | disposition home or self-care (01) ==
LOC: PREOP 05:40
PROVIDERS: ATTEND Surgery
DX: Z01.818 Encounter for other preprocedural examination (principal)

== ENCOUNTER 2017-12-20 09:29 | Day surgery (SDC) | payer MEDICARE ==
[~2017-12-20] VITALS: Ht 152.4 cm; Wt 106.4 kg
[~2017-12-20 09:29] MED LIST changes: +LISI-552 PO; +PANT40TA3 PO
[2017-12-20] MEDS ORDERED: NS IV 500 ML 500 ML IV PRN (09:43)
[2017-12-20] MEDS ORDERED: fentaNYL INJECTION 100 MCG/2 ML AMP IVP ONE (09:45)
[2017-12-20] MEDS ORDERED: HURRICAINE EXT TUBE (BENZOCAINE) XX PRN (09:45)
[2017-12-20] MEDS ORDERED: MIDAZOLAM 2 MG/2 ML (VERSED) VIAL IVP ONE (09:45)
[2017-12-20 09:55] VITALS: BP 177/95
--- OUTSIDE RECORDS SUMMARY | 2017-12-20 10:49 | XMS REPORT | Continuity of Care Document ---
Author Author [facility] Organization [facility] Address Unknown Phone Unavailable Care Team Providers Care Manager Career Name Role Phone YAZ MOJICA DO PP Insurance Providers Payer Name Policy Number Subscriber Name Relationship [facility] [id number] [employer] L[employer] Jr 02 Advance Directives Directive Response Recorded Date Advance Directives N 05/31/12 10:32pm Health Care Power of Spring Clipper N 05/31/12 10:32pm Problems No Known Problems or Medical conditions. Social History History Response Recorded Date/Time Alcohol Use Denies Use 06/01/12 12:05am Recreational Drug Use N 06/01/12 12:05am Allergies, Adverse Reactions, Alerts Allergen Type Severity Reaction Last Updated Codeine Allergy Unknown 07/30/08 Medications Medication Dose Units Route Sig Qty Days [Xanax] Trazodone HCl (Desyrel 50 Mg) 75 Mg PO HS Dicyclomine Hcl 20 Mg PO QID Citalopram Hydrobromide (Citalopram Hbr) 40 Mg PO DAILY Prednisone 40 Mg PO DAILY Amlodipine Besylate 1 Each PO DAILY Estradiol (Estrace) 1 Mg PO DAILY Metoprolol Tartrate (Metoprolol Tartrate 25 Mg) 0.5 Tab PO BID Immunizations Name Given Type Date of Influenza Vaccine 04/03/12 H Response Recorded Date/Time Status not known Unknown Results Test Date Result Interp. Ref. Range Activated Partial Thromboplast Time May 31, 2012 10: 30pm 27 SEC N 24-35 Alanine Aminotransferase (ALT/SGPT) May 31, 2012 10: 30pm 143 U/L H 30-65 Albumin May 31, 2012 10:30pm 4.0 G/ DL N 3.4-5.0 Alkaline Phosphatase May 31, 2012 10:30pm 101 U/L N 50-136 Amylase Level May 31, 2012 10:30pm 90 U/L N 25-115 Aspartate Amino Transf (AST/SGOT) May 31, 2012 10:30pm 42 U/L H 15-37 Atypical Lymphocytes May 31, 2012 10:30pm 0 % - B-Type Natriuretic Peptide May 31, 2012 10:30pm 23.0 PG/ML N 5.0-100.0 BUN/Creatinine Ratio May 31, 2012 10:30pm 15 - Band Neutrophils May 31, 2012 10:30pm 0 % - Basophils # (Auto) May 31, 2012 10:30pm 0.0 10^3/uL N 0.0-0.1 Basophils % (Manual) May 31, 2012 10:30pm 0 % - Basophils (%) (Auto) May 31, 2012 10:30pm 0 % N 0-10 Blood Urea Nitrogen May 31, 2012 10:30pm 18 MG/DL N 7-18 Calcium Level May 31, 2012 10:30pm 8.6 MG/DL N 8.5-10.1 Carbon Dioxide Level May 31, 2012 10:30pm 27 MMOL/L N 21-32 Chloride Level May 31, 2012 10:30pm 99 MMOL/L L 101-110 Cholesterol Level July 30, 2008 8:45am 180 MG/DL N -200 Creatine Kinase MB May 31, 2012 10:30pm 1.0 NG/ML N 0.0-3.6 Creatinine May 31, 2012 10:30pm 1.2 MG/DL N 0.6-1.3 Eosinophils # (Auto) May 31, 2012 10:30pm 0.1 10^3/uL N 0.0-0.3 Eosinophils % (Manual) May 31, 2012 10:30pm 0 % - Eosinophils (%) (Auto) May 31, 2012 10:30pm 1 % N 0-10 Glucose Level May 31, 2012 10:30pm 103 MG/DL N 74-106 HDL Cholesterol July 30, 2008 8:45am 49 MG/DL N 35-60 Hematocrit May 31, 2012 10:30pm 38 % N 35-52 Hemoglobin May 31, 2012 10:30pm 13.0 G/DL N 11.5-16.0 LDL Cholesterol July 30, 2008 8:45am 98 MG/DL N 0-129 Lipase May 31, 2012 10:30pm 296 U/ L N 73-393 Lymphocytes # (Auto) May 31, 2012 10:30pm 1.6 X 10^3 N 1.0-4.0 Lymphocytes % (Manual) May 31, 2012 10:30pm 9 % - Lymphocytes (%) (Auto) May 31, 2012 10:30pm 11 % L 12-44 Mean Corpuscular Hemoglobin May 31, 2012 10:30pm 33 PG N 25-34 Mean Corpuscular Hemoglobin Concent May 31, 2012 10: 30pm 34 G/DL N 32-36 Mean Corpuscular Volume May 31, 2012 10:30pm 97 FL N 80-99 Mean Platelet Volume May 31, 2012 10:30pm 10.6 FL H 7.4-10.4 Monocytes # (Auto) May 31, 2012 10:30pm 0.5 X 10^3 N 0.0-1.0 Monocytes % (Manual) May 31, 2012 10:30pm 3 % - Monocytes (%) (Auto) May 31, 2012 10:30pm 3 % N 0-12 Neutrophils # (Auto) May 31, 2012 10:30pm 12.6 X 10^3 H 1.8-7.8 Neutrophils % (Manual) May 31, 2012 10:30pm 85 % - Neutrophils (%) (Auto) May 31, 2012 10:30pm 85 % H 42-75 Platelet Count May 31, 2012 10:30pm 185 10^3/uL N 130-400 Potassium Level May 31, 2012 10:30pm 3.5 MMOL/L L 3.6-5.0 Prothromb Time International Ratio May 31, 2012 10: 30pm 0.9 N 0.8-1.4 Prothrombin Time May 31, 2012 10:30pm 12.6 SEC N 12.2-14.7 Reactive Lymphocytes May 31, 2012 10:30pm 3 % - Red Blood Count May 31, 2012 10:30pm 3.94 10^6/uL L 4.35-5.85 Red Cell Distribution Width May 31, 2012 10:30pm 15.3 % H 10.0-14.5 Sodium Level May 31, 2012 10:30pm 135 MMOL/L N 135-145 Total Bilirubin May 31, 2012 10:30pm 0.5 MG/DL N 0.0-1.0 Total Creatine Kinase May 31, 2012 10:30pm 31 U/L N 1-159 Total Protein May 31, 2012 10:30pm 7.0 G/DL N 6.4-8.2 Triglycerides Level July 30, 2008 8:45am 164 MG/DL H 30.0-150.0 Troponin I May 31, 2012 10:30pm < 0.10 NG/ML 0.00-0.10 Urine Bacteria July 30, 2008 8:30am FEW H - Urine Bilirubin July 30, 2008 8:30am NEGATIVE - Urine Casts July 30, 2008 8:30am NONE - Urine Clarity July 30, 2008 8:30am VERY CLOUDY H - Urine Color July 30, 2008 8:30am YELLOW - Urine Crystals July 30, 2008 8:30am NONE - Urine Culture Indicated July 30, 2008 8:30am YES - Urine Glucose (UA) July 30, 2008 8:30am NEGATIVE - Urine Ketones July 30, 2008 8:30am NEGATIVE - Urine Leukocyte Esterase July 30, 2008 8:30am NEGATIVE - Urine Mucus July 30, 2008 8:30am NEGATIVE - Urine Nitrite July 30, 2008 8:30am NEGATIVE - Urine Protein July 30, 2008 8:30am NEGATIVE - Urine RBC July 30, 2008 8:30am NONE / HPF - Urine Specific [place] July 30, 2008 8:30am 1.015 L - Urine Squamous Epithelial Cells July 30, 2008 8:30am 0-2 - Urine Urobilinogen July 30, 2008 8:30am NORMAL MG/DL - Urine WBC July 30, 2008 8:30am RARE / HPF - Urine pH July 30, 2008 8:30am 6.0 - VLDL Cholesterol July 30, 2008 8:45am 33 MG/DL N 5-40 White Blood Count May 31, 2012 10:30pm 14.7 10^3/uL H 4.3-11.0 Estimat Glomerular Filtration Rate May 31, 2012 10: 30pm 47 - Blood Morphology Comment May 31, 2012 10:30pm OK - Urine RBC (Auto) July 30, 2008 8:30am 1 + H - Procedures Procedure Code Date LEFT HEART CATHETERIZATION 62802 INJECTION FOR HEART X-RAYS 63910 INJECTION FOR AORTOGRAPHY 94267 07/30/08 INJECT FOR CORONARY X-RAYS 80217 INS CATH ABD/L-EXT ART 3RD 38622 IMAGING, CARDIAC CATH [id number] 07/30/08 MRSA Screen 07/30/08 Urine Culture 07/30/08 Encounters Encounter Location Date/Time Departed Emergency Room [facility] 10:13pm
--- OUTSIDE RECORDS SUMMARY | 2017-12-20 10:50 | XMS REPORT | Continuity of Care Document ---
Author Author [facility] Organization [facility] Address Unknown Phone Unavailable Allergies Active Description Code Type Severity Reaction Onset Reported/Identified Relationship to Patient Clinical Status Yes CODEINE SULFATE MILD OTHER Yes OXYCODONE MILD ITCHING Yes codeine [id number] Drug Allergy Unknown N/A 03/20/2017 Yes oxycodone [id number] Drug Allergy Unknown N/A 03/20/2017 Yes codeine [id number] Drug Allergy Unknown Pt has had Hydr 12/18/2017 Yes oxycodone [id number] Drug Allergy Unknown Pt has had Hydr 12/18/2017 Yes Penicillins [id number] Drug Allergy Unknown N/A 12/18/2017 Medications There is no data. Problems Date [...] POST MD Ot 414.01 CORONARY ATHEROSCLEROSIS OF [place] CORON 04/30/2013 ALEX POST MD Ot 427.89 CARDIAC DYSRHYTHMIAS NEC 04/30/2013 ALEX POST MD Ot 530.11 REFLUX ESOPHAGITIS 04/30/2013 ALEX POST MD Ot 530.3 ESOPHAGEAL STRICTURE 04/30/2013 ALEX POST MD Ot 535.50 UNSP GASTRITIS GASTRODUODENITIS W/O ME 04/30/2013 SINCERE PETER ALEX Das Ot V58.69 OT MED,LT,CURRENT USE 09/10/2015 A 530.81 09/10/2015 A K21.0 GASTRO- ESOPHAGEAL REFLUX DISEASE WITH ESOPHAGITIS 09/14/2015 W 300.00 09/14/2015 W 311 09/14/2015 W 327.29 09/14/2015 W 401.9 UNSPECIFIED ESSENTIAL HYPERTENSION 09/14/2015 W 428.0 CONGESTIVE HEART FAILURE, UNSPECIFIED 09/14/2015 W F32.9 MAJOR DEPRESSIVE DISORDER, SINGLE EPISODE, UNSPECIFIED 09/14/2015 W F41.9 ANXIETY DISORDER, UNSPECIFIED 09/14/2015 W G47.39 OTHER SLEEP APNEA 09/14/2015 W I10 ESSENTIAL ( PRIMARY) HYPERTENSION 09/14/2015 W I50.9 HEART FAILURE , UNSPECIFIED 09/14/2015 W V12.61 09/14/2015 W Z87.01 PERSONAL HISTORY OF PNEUMONIA (RECURRENT) 09/24/2015 ZA PETER, KELSEY Holm Ot G47.33 OBSTRUCTIVE SLEEP APNEA (ADULT) (PEDIATR 09/30/2015 KELSEY MENDENHALL MD Ot G47.33 OBSTRUCTIVE SLEEP APNEA (ADULT) (PEDIATR 10/28/2016 RAS DE SANTIAGO DO Ot M47.812 SPONDYLOSIS W/O MYELOPATHY OR RADICULOPA 10/28/2016 RAS DE SANTIAGO DO Ot M48.02 SPINAL STENOSIS, CERVICAL REGION 02/10/2017 Nick Jolley W 782.1 RASH AND OTHER NONSPECIFIC SKIN ERUPTION 02/10/2017 Nick Jolley W R21 RASH AND OTHER NONSPECIFIC SKIN ERUPTION 02/10/2017 Nick Jolley W 782.1 RASH AND OTHER NONSPECIFIC SKIN ERUPTION 02/10/2017 Nick Jolley R21 RASH AND OTHER NONSPECIFIC SKIN ERUPTION 03/02/2017 JUAN LYP Ot G47.33 OBSTRUCTIVE SLEEP APNEA (ADULT) (PEDIATR 03/03/2017 JUAN LYP Ot G47.33 OBSTRUCTIVE SLEEP APNEA (ADULT) (PEDIATR 03/03/2017 RAS DE SANTIAGO DO Ot M47.812 SPONDYLOSIS W/O MYELOPATHY OR RADICULOPA 03/03/2017 RAS DE SANTIAGO DO Ot M48.02 SPINAL STENOSIS, CERVICAL REGION 03/03/2017 JUAN LYP Ot G47.33 OBSTRUCTIVE SLEEP APNEA (ADULT) (PEDIATR 03/04/2017 JUAN LYP Ot G47.33 OBSTRUCTIVE SLEEP APNEA (ADULT) (PEDIATR 03/06/2017 JUAN LY Ot G47.33 OBSTRUCTIVE SLEEP APNEA (ADULT) (PEDIATR 03/13/2017 RAS DE SANTIAGO DO, Ot M47.812 SPONDYLOSIS [...] FOR PREPROCEDURAL CARDIOVASCUL 03/13/2017 RAS DE SANTIAGO DO Ot Z01.812 ENCOUNTER FOR PREPROCEDURAL LABORATORY E 03/13/2017 RAS DE SANTIAGO DO Ot Z11.2 ENCOUNTER FOR SCREENING FOR OTHER BACTER 03/20/2017 KELSEY MENDENHALL MD Ot G47.33 OBSTRUCTIVE SLEEP APNEA (ADULT) (PEDIATR 03/21/2017 KELSEY MENDENHALL MD Ot G47.33 OBSTRUCTIVE SLEEP APNEA (ADULT) (PEDIATR 03/21/2017 RAS DE SANTIAGO DO Ot E66.01 MORBID (SEVERE) OBESITY DUE TO EXCESS CA 03/21/2017 RAS DE SANTIAGO DO Ot F32.9 MAJOR DEPRESSIVE DISORDER, SINGLE EPISOD 03/21/2017 RAS DE SANTIAGO DO Ot G47.33 OBSTRUCTIVE SLEEP APNEA (ADULT) (PEDIATR [...] OBSTRUCTIVE SLEEP APNEA (ADULT) (PEDIATR 05/24/2017 RAS ED SANTIAGO DO Ot M48.02 SPINAL STENOSIS, CERVICAL REGION 05/24/2017 RAS DE SANTIAGO DO Ot Z98.890 OTHER SPECIFIED POSTPROCEDURAL STATES 05/24/2017 RAS DE SANTIAGO DO Ot M47.812 SPONDYLOSIS W/O MYELOPATHY OR RADICULOPA 05/24/2017 RAS DE SANTIAGO DO Ot M48.02 SPINAL STENOSIS, CERVICAL REGION 05/24/2017 KELSEY MENDENHALL MD Ot G47.33 OBSTRUCTIVE SLEEP APNEA (ADULT) (PEDIATR 05/24/2017 RAS DE SANTIAGO DO Ot M48.02 SPINAL STENOSIS, CERVICAL REGION 05/24/2017 RAS DE SANTIAGO DO Ot Z98.890 OTHER SPECIFIED POSTPROCEDURAL STATES 05/25/2017 KELSEY MENDENHALL MD Ot G47.33 OBSTRUCTIVE SLEEP APNEA (ADULT) (PEDIATR 05/25/2017 RAS DE SANTIAGO DO Ot M47.812 SPONDYLOSIS [...] ACQUIRED ABSENCE OF BOTH CERVIX AND UTER 08/03/2017 LAY OSWALD MD Ot F32.9 MAJOR DEPRESSIVE DISORDER, SINGLE EPISOD 08/03/2017 LAY OSWALD MD Ot F41.9 ANXIETY DISORDER, UNSPECIFIED 08/03/2017 LAY OSWALD MD Ot G47.33 OBSTRUCTIVE SLEEP APNEA (ADULT) (PEDIATR 08/03/2017 LYA OSWALD MD Ot I10 ESSENTIAL (PRIMARY) HYPERTENSION 08/03/2017 LAY OSWALD MD Ot I25.10 ATHSCL HEART DISEASE OF [place] CORONARY 08/03/2017 LAY OSWALD MD Ot J30.2 OTHER SEASONAL ALLERGIC RHINITIS 08/03/2017 LAY OSWALD MD Ot J44.9 CHRONIC OBSTRUCTIVE PULMONARY DISEASE, U 08/03/2017 LAY OSWALD MD Ot K21.9 GASTRO-ESOPHAGEAL REFLUX DISEASE WITHOUT 08/03/2017 LAY OSWALD MD Ot K58.9 IRRITABLE BOWEL SYNDROME WITHOUT DIARRHE 08/03/2017 LAY OSWALD MD Ot K72.00 ACUTE AND SUBACUTE HEPATIC FAILURE WITHO 08/03/2017 LAY OSWALD MD Ot K76.0 FATTY (CHANGE OF) LIVER, NOT ELSEWHERE C 08/03/2017 LAY OSWALD MD, Ot K85.90 ACUTE PANCREATITIS WITHOUT NECROSIS OR I 08/03/2017 LAY OSWALD MD, Ot M19.91 PRIMARY OSTEOARTHRITIS, UNSPECIFIED SITE 08/03/2017 LAY OSWALD MD Ot M79.622 PAIN IN LEFT UPPER ARM 08/03/2017 LAY OSWALD MD Ot R07.9 CHEST PAIN, UNSPECIFIED 08/03/2017 LAY OSWALD MD Ot R60.0 LOCALIZED EDEMA 08/03/2017 LAY OSWALD MD Ot Z68.41 BODY MASS INDEX (BMI) 40.0-44.9, ADULT 08/03/2017 LAY OSWALD MD Ot Z87.01 PERSONAL HISTORY OF PNEUMONIA (RECURRENT 08/03/2017 LAY OSWALD MD Ot Z98.890 OTHER SPECIFIED POSTPROCEDURAL STATES 08/07/2017 ALEX POST MD Ot I10 ESSENTIAL (PRIMARY) HYPERTENSION 08/07/2017 ALEX POST MD Ot R07.89 OTHER CHEST PAIN 08/09/2017 LAY OSWALD MD Ot F32.9 MAJOR DEPRESSIVE DISORDER, SINGLE EPISOD 08/09/2017 LAY OSWALD MD Ot F41.9 ANXIETY DISORDER, UNSPECIFIED 08/09/2017 LAY OSWALD MD Ot G47.33 OBSTRUCTIVE SLEEP APNEA (ADULT) (PEDIATR 08/09/2017 LAY OSWALD MD Ot I10 ESSENTIAL (PRIMARY) HYPERTENSION 08/09/2017 LAY OSWALD MD Ot I25.10 ATHSCL HEART DISEASE OF [place] CORONARY 08/09/2017 LAY OSWALD MD Ot J30.2 OTHER SEASONAL ALLERGIC RHINITIS 08/09/2017 LAY OSWALD MD, Ot J44.9 CHRONIC OBSTRUCTIVE PULMONARY DISEASE, U 08/09/2017 LAY OSWALD MD, Ot K21.9 GASTRO-ESOPHAGEAL REFLUX DISEASE WITHOUT 08/09/2017 LAY OSWALD MD, Ot K58.9 IRRITABLE BOWEL SYNDROME WITHOUT DIARRHE 08/09/2017 LAY OSWALD MD Ot K72.00 ACUTE AND SUBACUTE HEPATIC FAILURE WITHO 08/09/2017 LAY OSWALD MD Ot K76.0 FATTY (CHANGE OF) LIVER, NOT ELSEWHERE C 08/09/2017 LAY OSWALD MD Ot K85.90 ACUTE PANCREATITIS WITHOUT NECROSIS OR I 08/09/2017 LAY OSWALD MD Ot M19.91 PRIMARY OSTEOARTHRITIS, UNSPECIFIED SITE 08/09/2017 LAY OSWALD MD Ot M79.622 PAIN IN LEFT UPPER ARM 08/09/2017 LAY OSWALD MD Ot R07.9 CHEST PAIN, UNSPECIFIED 08/09/2017 LAY OSWALD MD Ot R60.0 LOCALIZED EDEMA 08/09/2017 LAY OSWALD MD Ot Z68.41 BODY MASS INDEX (BMI) 40.0-44.9, ADULT 08/09/2017 LAY OSWALD MD Ot Z87.01 PERSONAL HISTORY OF PNEUMONIA (RECURRENT 08/09/2017 LAY OSWALD MD Ot Z98.890 OTHER SPECIFIED POSTPROCEDURAL STATES 08/09/2017 LAY OSWALD MD Ot F32.9 MAJOR DEPRESSIVE DISORDER, SINGLE EPISOD 08/09/2017 LAY OSWALD MD Ot F41.9 ANXIETY DISORDER, UNSPECIFIED 08/09/2017 LAY OSWALD MD Ot G47.33 OBSTRUCTIVE SLEEP APNEA (ADULT) (PEDIATR 08/09/2017 LAY OSWALD MD Ot I10 ESSENTIAL (PRIMARY) HYPERTENSION 08/09/2017 LAY OSWALD MD Ot I25.10 ATHSCL HEART DISEASE OF [place] CORONARY 08/09/2017 LAY OSWALD MD Ot J30.2 OTHER SEASONAL ALLERGIC RHINITIS 08/09/2017 LAY OSWALD MD Ot J44.9 CHRONIC OBSTRUCTIVE PULMONARY DISEASE, U 08/09/2017 LAY OSWALD MD Ot K21.9 GASTRO-ESOPHAGEAL REFLUX DISEASE WITHOUT 08/09/2017 LAY OSWALD MD Ot K58.9 IRRITABLE BOWEL SYNDROME WITHOUT DIARRHE 08/09/2017 LAY OSWALD MD Ot K72.00 ACUTE AND SUBACUTE HEPATIC FAILURE WITHO 08/09/2017 LAY OSWALD MD Ot K76.0 FATTY (CHANGE OF) LIVER, NOT ELSEWHERE C 08/09/2017 LAY OSWALD MD Ot K85.90 ACUTE PANCREATITIS WITHOUT NECROSIS OR I 08/09/2017 LAY OSWALD MD Ot M19.91 PRIMARY OSTEOARTHRITIS, UNSPECIFIED SITE 08/09/2017 LAY OSWALD MD Ot M79.622 PAIN IN LEFT UPPER ARM 08/09/2017 LAY OSWALD MD Ot R07.9 CHEST PAIN, UNSPECIFIED 08/09/2017 LAY OSWALD MD Ot R60.0 LOCALIZED EDEMA 08/09/2017 LAY OSWALD MD Ot Z68.41 BODY MASS INDEX (BMI) 40.0-44.9, ADULT 08/09/2017 LAY OSWALD MD Ot Z87.01 PERSONAL HISTORY OF PNEUMONIA (RECURRENT 08/09/2017 LAY OSWALD MD Ot Z98.890 OTHER SPECIFIED POSTPROCEDURAL STATES 08/09/2017 LAY OSWALD MD Ot F32.9 MAJOR DEPRESSIVE DISORDER, SINGLE EPISOD 08/09/2017 LAY OSWALD MD Ot F41.9 ANXIETY DISORDER, UNSPECIFIED 08/09/2017 LAY OSWALD MD Ot G47.33 OBSTRUCTIVE SLEEP APNEA (ADULT) (PEDIATR 08/09/2017 LAY OSWALD MD Ot I10 ESSENTIAL (PRIMARY) HYPERTENSION 08/09/2017 LAY OSWALD MD Ot I25.10 ATHSCL HEART DISEASE OF [place] CORONARY 08/09/2017 LAY OSWALD MD Ot J30.2 OTHER SEASONAL ALLERGIC RHINITIS 08/09/2017 LAY OSWALD MD Ot J44.9 CHRONIC OBSTRUCTIVE PULMONARY DISEASE, U 08/09/2017 LAY OSWALD MD Ot K21.9 GASTRO-ESOPHAGEAL REFLUX DISEASE WITHOUT 08/09/2017 LAY OSWALD MD Ot K58.9 IRRITABLE BOWEL SYNDROME WITHOUT DIARRHE 08/09/2017 LAY OSWALD MD Ot K72.00 ACUTE AND SUBACUTE HEPATIC FAILURE WITHO 08/09/2017 LAY OSWALD MD Ot K76.0 FATTY (CHANGE OF) LIVER, NOT ELSEWHERE C 08/09/2017 LAY OSWALD MD, Ot K85.90 ACUTE PANCREATITIS WITHOUT NECROSIS OR I 08/09/2017 LAY OSWALD MD, Ot M19.91 PRIMARY OSTEOARTHRITIS, UNSPECIFIED SITE 08/09/2017 LAY OSWALD MD, Ot M79.622 PAIN IN LEFT UPPER ARM 08/09/2017 LAY OSWALD MD Ot R07.9 CHEST PAIN, UNSPECIFIED 08/09/2017 LAY OSWALD MD, Ot R60.0 LOCALIZED EDEMA 08/09/2017 LAY OSWALD MD, Ot Z68.41 BODY MASS INDEX (BMI) 40.0-44.9, ADULT 08/09/2017 LAY OSWALD MD, Ot Z87.01 PERSONAL HISTORY OF PNEUMONIA (RECURRENT 08/09/2017 LAY OSWALD MD, Ot Z98.890 OTHER SPECIFIED POSTPROCEDURAL STATES 08/14/2017 Nick Jolley 078.5 CYTOMEGALOVIRAL DISEASE 08/14/2017 Nick Jolley B25.2 CYTOMEGALOVIRAL PANCREATITIS 08/14/2017 Nick Jolley 078.5 CYTOMEGALOVIRAL DISEASE 08/14/2017 Nick Jolley B25.2 CYTOMEGALOVIRAL PANCREATITIS 08/16/2017 ALONDRA PANIAGUA MD Ot F32.9 MAJOR DEPRESSIVE DISORDER, SINGLE EPISOD 08/16/2017 ALONDRA PANIAGUA MD, Ot F41.9 ANXIETY DISORDER, UNSPECIFIED 08/16/2017 ALONDRA PANIAGUA MD Ot G47.30 SLEEP APNEA, UNSPECIFIED 08/16/2017 ALONDRA PANIAGUA MD Ot I10 ESSENTIAL (PRIMARY) HYPERTENSION 08/16/2017 ALONDRA PANIAGUA MD Ot M54.16 RADICULOPATHY, LUMBAR REGION 08/16/2017 ALONDRA PANIAGUA MD, Ot M54.5 LOW BACK PAIN 08/16/2017 ALONDRA PANIAGUA MD Ot Z82.49 FAMILY HX OF ISCHEM HEART DIS AND OTH DI 08/16/2017 ALONDRA PANIAGUA MD, Ot Z87.01 PERSONAL HISTORY OF PNEUMONIA (RECURRENT 08/16/2017 ALONDRA PANIAGUA MD, Ot Z87.19 PERSONAL HISTORY OF OTHER DISEASES OF TH 08/16/2017 [place] MD, ALONDRA D Ot Z88.0 ALLERGY STATUS TO PENICILLIN 08/16/2017 ALONDRA PANIAGUA MD Ot Z88.5 ALLERGY STATUS TO NARCOTIC AGENT STATUS 08/16/2017 ALONDRA PANIAGUA MD Ot Z90.710 ACQUIRED ABSENCE OF BOTH CERVIX AND UTER 08/21/2017 ALONDRA PANIAGUA MD Ot F32.9 MAJOR DEPRESSIVE DISORDER, SINGLE EPISOD 08/21/2017 ALONDRA PANIAGUA MD, Ot F41.9 ANXIETY DISORDER, UNSPECIFIED 08/21/2017 ALONDRA PANIAGUA MD Ot G47.30 SLEEP APNEA, UNSPECIFIED 08/21/2017 ALONDRA PANIAGUA MD Ot I10 ESSENTIAL (PRIMARY) HYPERTENSION 08/21/2017 ALONDRA PANIAGUA MD Ot M54.16 RADICULOPATHY, LUMBAR REGION 08/21/2017 ALONDRA PANIAGUA MD Ot M54.5 LOW BACK PAIN 08/21/2017 ALONDRA PANIAGUA MD Ot Z82.49 FAMILY HX OF [place]SCHEM HEART DIS AND OTH DI 08/21/2017 ALONDRA PANIAGUA MD Ot Z87.01 PERSONAL HISTORY OF PNEUMONIA (RECURRENT 08/21/2017 ALONDRA PANIAGUA MD Ot Z87.19 PERSONAL HISTORY OF OTHER DISEASES OF TH 08/21/2017 ALONDRA PANIAGUA MD, Ot Z88.0 ALLERGY STATUS TO PENICILLIN 08/21/2017 ALONDRA PANIAUGA MD Ot Z88.5 ALLERGY STATUS TO NARCOTIC AGENT STATUS 08/21/2017 ALONDRA PANIAGUA MD Ot Z90.710 ACQUIRED ABSENCE OF BOTH CERVIX AND UTER 08/21/2017 SWEET PA, ANAND R Ot M43.16 SPONDYLOLISTHESIS, LUMBAR REGION 08/21/2017 SWEET PA, ANAND R Ot M46.87 OTH INFLAMMATORY SPONDYLOPATHIES, LUMBOS 08/21/2017 SWEET PA, ANAND R Ot M48.04 SPINAL STENOSIS, THORACIC REGION 08/21/2017 SWEET PA, ANAND R Ot M48.061 SPINAL STENOSIS, LUMBAR REGION WITHOUT N 08/21/2017 SWEET PA ANAND R Ot M51.25 OTHER INTERVERTEBRAL DISC DISPLACEMENT, 08/21/2017 SWEET PA ANAND R Ot M51.27 OTHER INTERVERTEBRAL DISC DISPLACEMENT, 08/21/2017 SWEET PA ANAND R Ot M51.37 OTHER INTERVERTEBRAL DISC DEGENERATION, 08/21/2017 SWEET PA, ANAND R Ot 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[place] 08/21/2017 SWEET PA, ANAND R Ot W19.XXXA UNSPECIFIED FALL, INITIAL ENCOUNTER 08/21/2017 SWEET PA, ANAND R Ot M43.16 SPONDYLOLISTHESIS, LUMBAR REGION 08/21/2017 SWEET PA, ANAND R Ot M46.87 OTH INFLAMMATORY SPONDYLOPATHIES, LUMBOS 08/21/2017 SWEET PA, ANAND R Ot M48.04 SPINAL STENOSIS, THORACIC REGION 08/21/2017 SWEET PA, ANAND R Ot M48.061 SPINAL STENOSIS, LUMBAR REGION WITHOUT N 08/21/2017 SWEET PA, ANAND R Ot M51.25 OTHER INTERVERTEBRAL DISC DISPLACEMENT, 08/21/2017 SWEET PA, ANAND R Ot M51.27 OTHER INTERVERTEBRAL DISC DISPLACEMENT, 08/21/2017 SWEET PA, ANAND R Ot M51.37 OTHER INTERVERTEBRAL DISC DEGENERATION, 08/21/2017 SWEET PA, ANAND R Ot 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[place] 08/21/2017 SWEET PA, ANAND R Ot W19.XXXA UNSPECIFIED FALL, INITIAL ENCOUNTER 08/24/2017 Nick Jolley W 787.02 NAUSEA ALONE 08/24/2017 Nick Jolley W 789.09 ABDOMINAL PAIN, OTHER SPECIFIED SITE; MULTIPLE SITES 08/24/2017 Nick Jolley W R10.1 PAIN LOCALIZED TO UPPER ABDOMEN 08/24/2017 Nick Jolley R11.0 NAUSEA 08/24/2017 Nick Jolley 787.02 NAUSEA ALONE 08/24/2017 Nick Jolley W 789.09 ABDOMINAL PAIN, OTHER SPECIFIED SITE; MULTIPLE SITES 08/24/2017 Nick Jolley W R10.1 PAIN LOCALIZED TO UPPER ABDOMEN 08/24/2017 Nick Jolley W R11.0 NAUSEA 08/30/2017 ALEX POST MD Ot I10 ESSENTIAL (PRIMARY) HYPERTENSION 08/30/2017 ALEX POST MD Ot R07.89 OTHER CHEST PAIN 09/04/2017 ALEX POST MD Ot I10 ESSENTIAL (PRIMARY) HYPERTENSION 09/04/2017 ALEX POST MD Ot R07.89 OTHER CHEST PAIN 09/08/2017 SWEET PA, ANAND R Ot M43.16 SPONDYLOLISTHESIS, LUMBAR REGION 09/08/2017 SWEET PA, ANAND R Ot M46.87 OTH INFLAMMATORY SPONDYLOPATHIES, LUMBOS 09/08/2017 SWEET PA, ANAND R Ot M48.04 SPINAL STENOSIS, THORACIC REGION 09/08/2017 SWEET PA, ANAND R Ot M48.061 SPINAL STENOSIS, LUMBAR REGION WITHOUT N 09/08/2017 SWEET PA, ANAND R Ot M51.25 OTHER INTERVERTEBRAL DISC DISPLACEMENT, 09/08/2017 SWEET PA, ANAND R Ot M51.27 OTHER INTERVERTEBRAL DISC DISPLACEMENT, 09/08/2017 SWEET PA, ANAND R Ot M51.37 OTHER INTERVERTEBRAL DISC DEGENERATION, 09/08/2017 SWEET PA, ANAND R Ot 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A 09/08/2017 SWEET PA, ANAND R Ot W19.XXXA UNSPECIFIED FALL, INITIAL ENCOUNTER 09/25/2017 SWEET PA, ANAND R Ot M43.16 SPONDYLOLISTHESIS, LUMBAR REGION 09/25/2017 SWEET PA, ANAND R Ot M46.87 OTH INFLAMMATORY SPONDYLOPATHIES, LUMBOS 09/25/2017 SWEET PA, ANAND R Ot M48.04 SPINAL STENOSIS, THORACIC REGION 09/25/2017 SWEET PA, ANAND R Ot M48.061 SPINAL STENOSIS, LUMBAR REGION WITHOUT N 09/25/2017 SWEET PA, ANAND R Ot M51.25 OTHER INTERVERTEBRAL DISC DISPLACEMENT, 09/25/2017 SWEET PA, ANAND R Ot M51.27 OTHER INTERVERTEBRAL DISC DISPLACEMENT, 09/25/2017 SWEET PA, ANAND R Ot M51.37 OTHER INTERVERTEBRAL DISC DEGENERATION, 09/25/2017 SWEET PA, ANAND R Ot 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A 09/25/2017 SWEET PA, ANAND R Ot W19.XXXA UNSPECIFIED FALL, INITIAL ENCOUNTER 09/25/2017 SINCERE PETER, ALEX Das Ot I10 ESSENTIAL (PRIMARY) HYPERTENSION 09/25/2017 ALEX POST MD Ot R07.89 OTHER CHEST PAIN Procedures Code Description Performed By Performed On [id number] FUSION 2-6 C JT W INTBD FUS DEV, ANT MI 03/20/2017 Results Test Result Range Thyroid Stimulating Hormone - 09/12/16 13:46 TSH 0.67 mIU/mL 0.32-5.00 MAXX Other Source - 02/10/17 10:06 MAXX Other Source Fungal elements seen 0.00-0.00 Methicillin resistant Staphylococcus aureus (MRSA) screening culture - 13:20 MRSA SCREEN RESULT MRSA ISOLATED NRG Complete blood count (CBC) with automated white [...] ABO+Rh group AP NRG Transfusion band number [id number] NRG Blood group antibody screen NEGATIVE NRG Complete blood count (CBC) with automated white blood cell (WBC) differential - 07/31/17 20:10 Blood leukocytes automated count (number/volume) 9.7 10*3/uL 4.3-11.0 Blood erythrocytes automated count (number/volume) 4.00 10*6/uL 4.35-5.85 Venous blood hemoglobin measurement (mass/volume) 13.4 g/dL 11.5-16.0 Blood hematocrit (volume fraction) 39 % 35-52 Automated erythrocyte mean corpuscular volume 97 [foz_us] 80-99 Automated erythrocyte mean corpuscular hemoglobin (mass per erythrocyte) 34 pg 25-34 Automated erythrocyte mean corpuscular hemoglobin concentration measurement ( mass/volume) 35 g/dL 32-36 Automated erythrocyte distribution width ratio 13.4 % 10.0-14.5 Automated blood platelet count (count/volume) 324 10*3/uL 130-400 Automated blood platelet mean volume measurement 9.8 [foz_us] 7.4-10.4 Automated blood neutrophils/100 leukocytes 63 % 42-75 Automated blood lymphocytes/100 leukocytes 27 % 12-44 Blood monocytes/100 leukocytes 8 % 0-12 Automated blood eosinophils/100 leukocytes 1 % 0-10 Automated blood basophils/100 leukocytes 0 % 0-10 Blood neutrophils automated count (number/volume) 6.1 10*3 1.8-7.8 Blood lymphocytes automated count (number/volume) 2.6 10*3 1.0-4.0 Blood monocytes automated count (number/volume) 0.8 10*3 0.0-1.0 Automated eosinophil count 0.1 10*3/uL 0.0-0.3 Automated blood basophil count (count/volume) 0.0 10*3/uL 0.0-0.1 PT panel in platelet poor plasma by coagulation assay - 07/31/17 20:10 Prothrombin time (PT) in platelet poor plasma by coagulation assay 12.9 s 12.2-14.7 INR in platelet poor plasma or blood by coagulation assay 1.0 0.8-1.4 Activated partial thromboplastin time (aPTT) in platelet poor plasma bycoagulation assay - 07/31/17 20:10 Activated partial thromboplastin time (aPTT) in platelet poor plasma bycoagulation assay 27 s 24-35 Fibrin D-dimer FEU measurement in platelet poor plasma (mass/volume) - 20:10 Fibrin D-dimer FEU measurement in platelet poor plasma (mass/volume) 0.37 ug/mL 0.00-0.49 Comprehensive metabolic panel - 07/31/17 20:10 Serum or plasma sodium measurement (moles/volume) 140 mmol/L 135-145 Serum or plasma potassium measurement (moles/volume) 3.2 mmol/L 3.6-5.0 Serum or plasma chloride measurement (moles/volume) 104 mmol/L 98-107 Carbon dioxide 22 mmol/L 21-32 Serum or plasma anion gap determination (moles/volume) 14 mmol/L 5-14 Serum or plasma urea nitrogen measurement (mass/volume) 12 mg/dL 7-18 Serum or plasma creatinine measurement (mass/volume) 0.84 mg/dL 0.60-1.30 Serum or plasma urea nitrogen/creatinine mass ratio 14 NRG Serum or plasma creatinine measurement with calculation of estimated glomerular filtration rate > NRG Serum or plasma glucose measurement (mass/volume) 101 mg/dL 70-105 Serum or plasma calcium measurement (mass/volume) 9.2 mg/dL 8.5-10.1 Serum or plasma total bilirubin measurement (mass/volume) 0.7 mg/dL 0.1-1.0 Serum or plasma alkaline phosphatase measurement (enzymatic activity/volume) 95 U/L 40-136 Serum or plasma aspartate aminotransferase measurement (enzymatic activity/ volume) 22 U/L 5-34 Serum or plasma alanine aminotransferase measurement (enzymatic activity/volume ) 22 U/L 0-55 Serum or plasma protein measurement (mass/volume) 6.9 g/dL 6.4-8.2 Serum or plasma albumin measurement (mass/volume) 4.3 g/dL 3.2-4.5 Magnesium - 07/31/17 20:10 Magnesium 2.2 mg/dL 1.8-2.4 Serum or plasma troponin i.cardiac measurement (mass/volume) - 07/31/17 20:10 Serum or plasma troponin i.cardiac measurement (mass/volume) < ng/ mL <0.30 Myoglobin, serum - 07/31/17 20:10 Myoglobin, serum 64.1 ng/mL 10.0-92.0 Serum or plasma lithium measurement (moles/volume) - 07/31/17 20:10 BNP level < pg/mL <100.0 Lipase - 07/31/17 20:10 Lipase 14 U/L 8-78 Complete blood count (CBC) with automated white blood cell (WBC) differential - 08/01/17 06:50 Blood leukocytes automated count (number/volume) 6.1 10*3/uL 4.3-11.0 Blood erythrocytes automated count (number/volume) 3.73 10*6/uL 4.35-5.85 Venous blood hemoglobin measurement (mass/volume) 12.3 g/dL 11.5-16.0 Blood hematocrit (volume fraction) 37 % 35-52 Automated erythrocyte mean corpuscular volume 99 [foz_us] 80-99 Automated erythrocyte mean corpuscular hemoglobin (mass per erythrocyte) 33 pg 25-34 Automated erythrocyte mean corpuscular hemoglobin concentration measurement ( mass/volume) 33 g/dL 32-36 Automated erythrocyte distribution width ratio 13.2 % 10.0-14.5 Automated blood platelet count (count/volume) 276 10*3/uL 130-400 Automated blood platelet mean volume measurement 10.2 [foz_us] 7.4-10.4 Automated blood neutrophils/100 leukocytes 60 % 42-75 Automated blood lymphocytes/100 leukocytes 27 % 12-44 Blood monocytes/100 leukocytes 11 % 0-12 Automated blood eosinophils/100 leukocytes 1 % 0-10 Automated blood basophils/100 leukocytes 0 % 0-10 Blood neutrophils automated count (number/volume) 3.7 10*3 1.8-7.8 Blood lymphocytes automated count (number/volume) 1.7 10*3 1.0-4.0 Blood monocytes automated count (number/volume) 0.7 10*3 0.0-1.0 Automated eosinophil count 0.1 10*3/uL 0.0-0.3 Automated blood basophil count (count/volume) 0.0 10*3/uL 0.0-0.1 Comprehensive metabolic panel - 08/01/17 06:50 Serum or plasma sodium measurement (moles/volume) 136 mmol/L 135-145 Serum or plasma potassium measurement (moles/volume) 3.7 mmol/L 3.6-5.0 Serum or plasma chloride measurement (moles/volume) 102 mmol/L 98-107 Carbon dioxide 24 mmol/L 21-32 Serum or plasma anion gap determination (moles/volume) 10 mmol/L 5-14 Serum or plasma urea nitrogen measurement (mass/volume) 13 mg/dL 7-18 Serum or plasma creatinine measurement (mass/volume) 0.81 mg/dL 0.60-1.30 Serum or plasma urea nitrogen/creatinine mass ratio 16 NRG Serum or plasma creatinine measurement with calculation of estimated glomerular filtration rate > NRG Serum or plasma glucose measurement (mass/volume) 85 mg/dL 70-105 Serum or plasma calcium measurement (mass/volume) 8.5 mg/dL 8.5-10.1 Serum or plasma total bilirubin measurement (mass/volume) 2.2 mg/dL 0.1-1.0 Serum or plasma alkaline phosphatase measurement (enzymatic activity/volume) 143 U/L 40-136 Serum or plasma aspartate aminotransferase measurement (enzymatic activity/ volume) 968 U/L 5-34 Serum or plasma alanine aminotransferase measurement (enzymatic activity/volume ) 335 U/L 0-55 Serum or plasma protein measurement (mass/volume) 6.0 g/dL 6.4-8.2 Serum or plasma albumin measurement (mass/volume) 3.7 g/dL 3.2-4.5 Lipid 1996 panel - 08/01/17 06:50 Serum or plasma triglyceride measurement (mass/volume) 90 mg/dL <150 Serum or plasma cholesterol measurement (mass/volume) 150 mg/dL < 200 Serum or plasma cholesterol in HDL measurement (mass/volume) 54 mg/ dL 40-60 Cholesterol in LDL [mass/volume] in serum or plasma by direct assay 79 mg/dL 1-129 Serum or plasma cholesterol in VLDL measurement (mass/volume) 18 mg/ dL 5-40 Serum or plasma amylase measurement (enzymatic activity/volume) - 08/01/17 06: 50 Serum or plasma amylase measurement (enzymatic activity/volume) 319 U/L 25-125 Lipase - 08/01/17 06:50 Lipase 438 U/L 8-78 Comprehensive metabolic panel - 08/01/17 14:45 Serum or plasma sodium measurement (moles/volume) 137 mmol/L 135-145 Serum or plasma potassium measurement (moles/volume) 3.9 mmol/L 3.6-5.0 Serum or plasma chloride measurement (moles/volume) 105 mmol/L 98-107 Carbon dioxide 21 mmol/L 21-32 Serum or plasma anion gap determination (moles/volume) 11 mmol/L 5-14 Serum or plasma urea nitrogen measurement (mass/volume) 13 mg/dL 7-18 Serum or plasma creatinine measurement (mass/volume) 0.85 mg/dL 0.60-1.30 Serum or plasma urea nitrogen/creatinine mass ratio 15 NRG Serum or plasma creatinine measurement with calculation of estimated glomerular filtration rate > NRG Serum or plasma glucose measurement (mass/volume) 80 mg/dL 70-105 Serum or plasma calcium measurement (mass/volume) 8.7 mg/dL 8.5-10.1 Serum or plasma total bilirubin measurement (mass/volume) 1.5 mg/dL 0.1-1.0 Serum or plasma alkaline phosphatase measurement (enzymatic activity/volume) 184 U/L 40-136 Serum or plasma aspartate aminotransferase measurement (enzymatic activity/ volume) 933 U/L 5-34 Serum or plasma alanine aminotransferase measurement (enzymatic activity/volume ) 483 U/L 0-55 Serum or plasma protein measurement (mass/volume) 6.2 g/dL 6.4-8.2 Serum or plasma albumin measurement (mass/volume) 3.8 g/dL 3.2-4.5 Serum or plasma troponin i.cardiac measurement (mass/volume) - 08/01/17 14:45 Serum or plasma troponin i.cardiac measurement (mass/volume) < ng/ mL <0.30 Serum or plasma amylase measurement (enzymatic activity/volume) - 08/01/17 14: 45 Serum or plasma amylase measurement (enzymatic activity/volume) 132 U/L 25-125 Lipase - 08/01/17 14:45 Lipase 47 U/L 8-78 Automated blood complete blood count (hemogram) panel - 08/02/17 05:06 Blood leukocytes automated count (number/volume) 6.0 10*3/uL 4.3-11.0 Blood erythrocytes automated count (number/volume) 3.57 10*6/uL 4.35-5.85 Venous blood hemoglobin measurement (mass/volume) 11.8 g/dL 11.5-16.0 Blood hematocrit (volume fraction) 36 % 35-52 Automated erythrocyte mean corpuscular volume 100 [foz_us] 80-99 Automated erythrocyte mean corpuscular hemoglobin (mass per erythrocyte) 33 pg 25-34 Automated erythrocyte mean corpuscular hemoglobin concentration measurement ( mass/volume) 33 g/dL 32-36 Automated erythrocyte distribution width ratio 13.3 % 10.0-14.5 Automated blood platelet count (count/volume) 250 10*3/uL 130-400 Automated blood platelet mean volume measurement 9.8 [foz_us] 7.4-10.4 Comprehensive metabolic panel - 08/02/17 05:06 Serum or plasma sodium measurement (moles/volume) 139 mmol/L 135-145 Serum or plasma potassium measurement (moles/volume) 3.8 mmol/L 3.6-5.0 Serum or plasma chloride measurement (moles/volume) 105 mmol/L 98-107 Carbon dioxide 24 mmol/L 21-32 Serum or plasma anion gap determination (moles/volume) 10 mmol/L 5-14 Serum or plasma urea nitrogen measurement (mass/volume) 14 mg/dL 7-18 Serum or plasma creatinine measurement (mass/volume) 0.74 mg/dL 0.60-1.30 Serum or plasma urea nitrogen/creatinine mass ratio 19 NRG Serum or plasma creatinine measurement with calculation of estimated glomerular filtration rate > NRG Serum or plasma glucose measurement (mass/volume) 70 mg/dL 70-105 Serum or plasma calcium measurement (mass/volume) 8.6 mg/dL 8.5-10.1 Serum or plasma total bilirubin measurement (mass/volume) 0.8 mg/dL 0.1-1.0 Serum or plasma alkaline phosphatase measurement (enzymatic activity/volume) 168 U/L 40-136 Serum or plasma aspartate aminotransferase measurement (enzymatic activity/ volume) 321 U/L 5-34 Serum or plasma alanine aminotransferase measurement (enzymatic activity/volume ) 339 U/L 0-55 Serum or plasma protein measurement (mass/volume) 6.2 g/dL 6.4-8.2 Serum or plasma albumin measurement (mass/volume) 3.7 g/dL 3.2-4.5 Lipase - 08/02/17 05:06 Lipase 12 U/L 8-78 Complete blood count (CBC) with automated white blood cell (WBC) differential - 08/03/17 04:06 Blood leukocytes automated count (number/volume) 5.5 10*3/uL 4.3-11.0 Blood erythrocytes automated count (number/volume) 3.43 10*6/uL 4.35-5.85 Venous blood hemoglobin measurement (mass/volume) 11.2 g/dL 11.5-16.0 Blood hematocrit (volume fraction) 35 % 35-52 Automated erythrocyte mean corpuscular volume 101 [foz_us] 80-99 Automated erythrocyte mean corpuscular hemoglobin (mass per erythrocyte) 33 pg 25-34 Automated erythrocyte mean corpuscular hemoglobin concentration measurement ( mass/volume) 32 g/dL 32-36 Automated erythrocyte distribution width ratio 13.3 % 10.0-14.5 Automated blood platelet count (count/volume) 245 10*3/uL 130-400 Automated blood platelet mean volume measurement 10.7 [foz_us] 7.4-10.4 Automated blood neutrophils/100 leukocytes 56 % 42-75 Automated blood lymphocytes/100 leukocytes 31 % 12-44 Blood monocytes/100 leukocytes 12 % 0-12 Automated blood eosinophils/100 leukocytes 2 % 0-10 Automated blood basophils/100 leukocytes 0 % 0-10 Blood neutrophils automated count (number/volume) 3.1 10*3 1.8-7.8 Blood lymphocytes automated count (number/volume) 1.7 10*3 1.0-4.0 Blood monocytes automated count (number/volume) 0.6 10*3 0.0-1.0 Automated eosinophil count 0.1 10*3/uL 0.0-0.3 Automated blood basophil count (count/volume) 0.0 10*3/uL 0.0-0.1 Comprehensive metabolic panel - 08/03/17 04:06 Serum or plasma sodium measurement (moles/volume) 139 mmol/L 135-145 Serum or plasma potassium measurement (moles/volume) 3.9 mmol/L 3.6-5.0 Serum or plasma chloride measurement (moles/volume) 106 mmol/L 98-107 Carbon dioxide 23 mmol/L 21-32 Serum or plasma anion gap determination (moles/volume) 10 mmol/L 5-14 Serum or plasma urea nitrogen measurement (mass/volume) 13 mg/dL 7-18 Serum or plasma creatinine measurement (mass/volume) 0.83 mg/dL 0.60-1.30 Serum or plasma urea nitrogen/creatinine mass ratio 16 NRG Serum or plasma creatinine measurement with calculation of estimated glomerular filtration rate > NRG Serum or plasma glucose measurement (mass/volume) 122 mg/dL 70-105 Serum or plasma calcium measurement (mass/volume) 8.0 mg/dL 8.5-10.1 Serum or plasma total bilirubin measurement (mass/volume) 0.3 mg/dL 0.1-1.0 Serum or plasma alkaline phosphatase measurement (enzymatic activity/volume) 136 U/L 40-136 Serum or plasma aspartate aminotransferase measurement (enzymatic activity/ volume) 106 U/L 5-34 Serum or plasma alanine aminotransferase measurement (enzymatic activity/volume ) 201 U/L 0-55 Serum or plasma protein measurement (mass/volume) 5.5 g/dL 6.4-8.2 Serum or plasma albumin measurement (mass/volume) 3.4 g/dL 3.2-4.5 Amylase - 08/14/17 15:25 Amylase 51 U/L 20-100 Lipase - 08/24/17 14:47 Lipase 28 U/L 7-59 Encounters ACCT No. Visit Date/Time Discharge Status Pt. Type Provider Facility Loc./Unit Complaint [id number] 12/18/2017 05:40:00 12/18/2017 09:10:00 DIS Outpatient MICHAEL HOLLIDAY MD [facility] PREOP SCREENING [id number] 09/13/2017 11:58:00 09/13/2017 23:59:59 CLS Preadmit RAS DE SANTIAGO DO M [facility] REHAB L4-L5 SPONDYLOLISTHESIS [id number] 08/19/2017 07:27:00 08/19/2017 23:59:59 CLS Outpatient ANAND DOTSON [facility] RAD BACK PAIN [id number] 08/16/2017 08:48:00 08/16/2017 09:39:00 DIS Emergency ARCELIA PETER, ALONDRA Villalobos [facility] ER LOWER BACK PAIN, LEG AND FEET PAIN [id number] 08/07/2017 06:56:00 08/07/2017 23:59:59 CLS Outpatient SINCERE PETER, ALEX Das [facility] CARD I10 HTN [id number] 08/01/2017 14:44:00 08/03/2017 11:07:00 DIS Inpatient DAREK PETER, LAY Lassiter [facility] 4TH CHEST PAIN;HTN [id number] 06/21/2017 21:25:00 06/21/2017 22:22:00 DIS Emergency ALEAH SIM RESIZER OPERATOR [facility] ER LAC LEFT HAND [id number] 05/26/2017 20:00:00 05/27/2017 06:35:00 DIS Outpatient ZA PETER, KELSEY Holm [facility] SLEEP G47.33 [id number] 03/23/2017 14:43:00 03/23/2017 23:59:59 CLS Outpatient RAS DE SANTIAGO DO [facility] RAD EXTREMITY WEAKNESS,CORD COMPRESSION [id number] 03/20/2017 09:11:00 03/21/2017 12:58:00 DIS Inpatient RAS DE SANTIAGO DO [facility] 4TH STENOSIS [id number] 03/13/2017 12:56:00 03/13/2017 13:40:00 DIS Outpatient RAS DE SANTIAGO DO [facility] PREOP STENOSIS [id number] 03/03/2017 20:37:00 03/04/2017 06:40:00 DIS Outpatient JUAN LY BAND CUTTING MACHINE OPERATOR [facility] SLEEP ELENITA G47.33 [id number] 10/07/2016 09:27:00 10/07/2016 23:59:59 CLS Outpatient JONNATHAN FREED RAS Black [facility] RAD NECK PAIN [id number] 09/23/2015 20:00:00 09/24/2015 06:30:00 DIS Outpatient ZA PETER, KELSEY Holm [facility] SLEEP OBSERVED APNEAS,ELENITA [id number] 04/27/2013 13:29:00 04/30/2013 14:22:00 DIS Outpatient SINCERE PETER, ALEX Das [facility] CATH CHEST PAIN [id number] 08/09/2012 20:49:00 08/10/2012 06:55:00 DIS Outpatient KELSEY MENDENHALL MD [facility] SLEEP SLEEP APNEA [id number] 12/20/2017 10:15:00 PEN Preadmit MICHAEL HOLLIDAY MD [facility] ENDO DYSPHAGIA [id number] 10/11/2016 14:22:00 Document Registration [id number] 05/31/2012 22:13:00 Document Registration [id number] 08/24/2017 14:41:00 08/24/2017 23:59:00 DIS Outpatient Nick Jolley [id number] 08/14/2017 15:13:00 08/14/2017 23:59:00 DIS Outpatient Nick Jolley [id number] 02/10/2017 10:01:00 02/10/2017 23:59:00 DIS Outpatient Nick Jolley [id number] 09/21/2016 13:38:00 09/21/2016 23:59:00 DIS Outpatient Nick Jolley [id number] 09/12/2016 13:41:00 Document Registration [id number] 09/14/2015 08:08:00 Document Registration
[2017-12-20] MEDS ORDERED: MIDAZOLAM 2 MG/2 ML (VERSED) VIAL ONE ×3 (11:16→11:17)
[2017-12-20] MEDS ORDERED: HURRICAINE EXT TUBE (BENZOCAINE) ONE (11:17)
[2017-12-20] MEDS ORDERED: LIDOCAINE JELLY 2% (XYLOCAINE) 5 ML TUBE ONE (11:17)
[2017-12-20] MEDS ORDERED: fentaNYL INJECTION 100 MCG/2 ML AMP ONE (11:17)
--- NOTE | 2017-12-20 11:20 | Conscious Sedation/ASA ---
Conscious Sedation Pre-Proced Time Reviewed: 10:30 ASA Class: 2 Airway Mallampati Classification: (bad river band appropriate class) I. II. III, IV Lungs Heart ASA score ASA 1: a normal healthy patient ASA 2: a patient with a mild systemic disease (mid diabetes, controlled hypertension, obesity ASA 3: a patient with a severe systemic disease that limits activity (angina , COPD, prior Myocardial infarction) ASA 4: a patient with an incapacitating disease that is a constant threat to life (CHF, renal failure) ASA 5: a moribund patient not expected to survive 24 hrs. (ruptured aneurysm) ASA 6: a declared brain patient whose organs are being harvested. For emergent operations, add the letter E after the classification Grade 3 Sedation Plan: Analgesia, Amnesia, Plan communicated to team members, Discussed options with patient/fam, Discussed risks with patient/fam Note The patient is an appropriate candidate to undergo the planned procedure, sedation, and anesthesia. The patient immediately re-assessed prior to indication. MICHAEL HOLLIDAY MD Dec 20, 2017 11:20 am
--- NOTE | 2017-12-20 11:21 | Progress Note-Pre Operative ---
Pre-Operative Progress Note H&P Reviewed The H&P was reviewed, patient examined and no changes noted. Date Seen by Provider: Dec 20, 2017 Time Seen by Provider: 10:30 Date H&P Reviewed: Dec 20, 2017 Time H&P Reviewed: 10:30 Pre-Operative Diagnosis: GERD, dysphagia MICHAEL HOLLIDAY MD Dec 20, 2017 11:21 am
[2017-12-20] MEDS ORDERED: ACETAMINOPHEN 325 MG TABLET PO PRN (11:30)
[2017-12-20] MEDS ORDERED: morphine INJ 10 MG/ML 1ML (SYR OR VIAL) IV PRN (11:30)
[2017-12-20] MEDS ORDERED: HYDROcodone/APAP 5 MG/325 MG (LORTAB) TAB PO PRN (11:30)
[2017-12-20] MEDS ORDERED: ONDANSETRON 4 MG/2 ML (SDV) Z0FRAN IV PRN (11:30)
--- NOTE | 2017-12-20 12:44 | Progress Note-Post Operative ---
Post-Operative Progess Note Surgeon (s)/Custom Home Installer (s) Surgeon MICHAEL HOLLIDAY MD Custom Home Installer: none Pre-Operative Diagnosis GERD, dysphagia Post-Operative Diagnosis reflux esophagitis(stage 3) with distal esophageal stricture, no recurrent hiatal hernia, mod-severe gastritis. Procedure & Operative Findings Date of Procedure 12/20/17 Procedure Performed/Findings EGD with bx and balloon dilatation. Anesthesia Type CS Estimated Blood Loss Estimated blood loss (mL): minimal Specimens/Packing Specimens Removed GE jxn, antrum MICHAEL HOLLIDAY MD Dec 20, 2017 12:44 pm
--- NOTE | 2017-12-20 12:45 | Discharge Inst-Surgical ---
D/C Lap Instructions-KIDO New, Converted, or Re-Newed RX: RX on Chart Follow Up Appt in 2 weeks Activity as tolerated High Fiber Diet 25g or more per day Avoid Alcohol, Caffeine, Spicy [place] and Acid foods. Drink 64 fluid oz or more of fluids per day. Symptoms to Report: Fever over 101 degree F, Nausea/Vomiting If any problems/questions: Contact your physician or go to Emergency Room MICHAEL HOLLIDAY MD Dec 20, 2017 12:45 pm
[2017-12-20 12:55] VITALS: BP 195/96
[2017-12-20] MEDS ORDERED: LIDOCAINE JELLY 2% (XYLOCAINE) 5 ML TUBE TOP ONE (13:15)
[2017-12-20 13:25] VITALS: BP 159/67
[2017-12-20 13:40] VITALS: BP 159/67
--- NOTE | 2017-12-20 14:09 | OPERATIVE REPORT ---
DATE OF SERVICE: 12/20/2017 ATTENDING PRIMARY CARE PHYSICIAN: Nick Jolley DO PREOPERATIVE DIAGNOSES: Dysphagia, gastroesophageal reflux disease. POSTOPERATIVE DIAGNOSES: Distal esophageal stricture, intact previous wrap, moderate to severe gastritis. PROCEDURE: EGD with biopsy and balloon dilatation. SURGEON: Michael Holliday MD ANESTHESIA: Conscious sedation. ESTIMATED BLOOD LOSS: Minimal. FINDINGS: Reflux esophagitis stage III with distal esophageal stricture, intact previous antireflux procedure, [id number] gastritis with no formal ulcerations, pylorus and duodenum appeared normal with no distal obstructions. DISPOSITION: The patient tolerated the procedure well. INDICATIONS: The patient is a 57-year-old female known to us. We had seen her before for reflux and dysphagia. In 2013, she had developed chest pain with radiation towards the back as well as bloating sensation. She reported a longstanding history of gastroesophageal reflux disease and underwent a Thiago fundoplication around 2008. She underwent an EGD with biopsy as well as balloon dilatation at that time. She reports that she has had worsening reflux with substernal chest pressure after food bolus, which would sometimes go down and decompress or she would regurgitate the food. She also reports epigastric burning sensation and crampy pain, and she is taking Zantac b.i.d. at this time. DESCRIPTION OF PROCEDURE: The patient was brought to the endoscopy suite, laid in the left lateral decubitus position. After adequate IV pain and sedative medications and conscious sedation anesthesia, the mouthpiece was applied. The endoscope was placed in the mouth, visualizing the pharynx and hypopharyngeal region. Vocal cords, epiglottis and vallecula identified and appeared to be normal. The endoscope was then gently intubated at the esophageal opening and esophagus insufflated. The endoscope was then advanced to the first, second and third portion of the esophagus at the level of the GE junction. A reflux esophagitis stage III identified with distal esophageal stricture. A biopsy was taken of the GE junction with forceps with visualization of good hemostasis. The endoscope was then advanced into the stomach and the endoscope retroflexed visualizing no recurrent hiatal hernia as well as an intact previous wrap. There was [id number] gastritis, which was noted towards the stomach antrum. There were no formal ulcerations, polyps or any neoplasms. A biopsy was taken of the stomach antrum with forceps for H. pylori with visualization of good hemostasis. The endoscope was then advanced to the pylorus into the first and second portions of duodenum, which appeared normal with no distal obstructions. We then proceeded with dilatation of the distal esophageal stricture. A CRE fixed guidewire balloon was placed and we first proceeded to 3 atmospheres of pressure or 12 mm in diameter with no resistance. We then proceeded to 4.5 atmospheres of pressure or 13.5 mm with minimal resistance. We then proceed to 8 atmospheres of pressure or 15 mm in diameter with moderate resistance and left this in place for approximately 60 seconds. The balloon was then desufflated and removed with visualization of no mucosal tears as well as good hemostasis. The endoscope was then slowly withdrawn while taking a second look and suctioning of residual air with no additional findings. The patient tolerated the procedure well. We will recommend graded dilatation. However, we were able to get this open to 15 mm. We will also recommend the necessary lifestyle and diet accommodation including small and more frequent meals, avoidance of eating at night as well as head elevation while lying supine. She also needs to avoid caffeinated beverages, spicy, greasy and acidic foods as well as adhere to a regularly scheduled diet and exercise program for weight maintenance. She is currently on Zantac; however, this appears to be ineffective and she does have significant gastritis and will start her on Protonix 40 mg daily. Job ID: [id number] DocumentID: [id number] Dictated Date: 12/20/2017 12:32:10 Benefits Counselor Date: 12/20/2017 14:09:19 Dictated By: MICHAEL HOLLIDAY MD
== END 2017-12-20 13:45 | disposition home or self-care (01) ==
LOC: ENDO 09:29
PROVIDERS: ATTEND Surgery
DX: K22.2 Esophageal obstruction (principal); K29.50 Unspecified chronic gastritis without bleeding; K21.9 Gastro-esophageal reflux disease without esophagitis; I10 Essential (primary) hypertension; F41.9 Anxiety disorder, unspecified; F32.9 Major depressive disorder, single episode, unspecified; Z79.899 Other long term (current) drug therapy

== ENCOUNTER 2018-01-06 04:57 | Emergency (ER) | payer MEDICARE, OTHER ==
[~2018-01-06] VITALS: Ht 152.4 cm; Wt 106.6 kg
--- OUTSIDE RECORDS SUMMARY | 2018-01-06 05:06 | XMS REPORT | Continuity of Care Document ---
Author Author [facility] Organization [facility] Address Unknown Phone Unavailable Allergies Active Description Code Type Severity Reaction Onset Reported/Identified Relationship to Patient Clinical Status Yes CODEINE SULFATE MILD OTHER Yes OXYCODONE MILD ITCHING Yes codeine [id number] Drug Allergy Unknown N/A 03/20/2017 Yes oxycodone [id number] Drug Allergy Unknown N/A 03/20/2017 Yes codeine [id number] Drug Allergy Unknown Pt has had Hydr 12/18/2017 Yes oxycodone [id number] Drug Allergy Unknown Pt has had Hydr 12/18/2017 Yes Penicillins [id number] Drug Allergy Unknown N/A 12/18/2017 Medications There [...] Ot 327.51 PERIODIC LIMB MOVEMENT DISORDER 04/30/2013 LAEX POST MD Ot 272.4 HYPERLIPIDEMIA NEC/NOS 04/30/2013 ALEX POST MD Ot 401.9 HYPERTENSION NOS 04/30/2013 ALEX POST MD Ot 414.01 CORONARY ATHEROSCLEROSIS OF [place] CORON 04/30/2013 ALEX POST MD Ot 427.89 [...] G47.33 OBSTRUCTIVE SLEEP APNEA (ADULT) (PEDIATR 08/03/2017 LAY OSWALD MD Ot I10 ESSENTIAL (PRIMARY) HYPERTENSION 08/03/2017 LAY OSWALD MD Ot I25.10 ATHSCL HEART DISEASE OF [place] CORONARY 08/03/2017 LAY OSWALD MD Ot J30.2 [...] MD Ot I25.10 ATHSCL HEART DISEASE OF [place] CORONARY 08/09/2017 LAY OSWALD MD Ot J30.2 [...] MD Ot I25.10 ATHSCL HEART DISEASE OF [place] CORONARY 08/09/2017 LAY OSWALD MD Ot J30.2 OTHER SEASONAL ALLERGIC RHINITIS 08/09/2017 LAY OSWALD MD Ot J44.9 CHRONIC OBSTRUCTIVE PULMONARY DISEASE, U 08/09/2017 LAY OSWALD MD Ot K21.9 GASTRO-ESOPHAGEAL REFLUX DISEASE WITHOUT 08/09/2017 LAY OSWALD MD Ot K58.9 IRRITABLE BOWEL SYNDROME WITHOUT DIARRHE 08/09/2017 LAY OSWADL MD Ot K72.00 ACUTE AND SUBACUTE HEPATIC [...] MD Ot I25.10 ATHSCL HEART DISEASE OF [place] CORONARY 08/09/2017 LAY OSWALD MD Ot J30.2 [...] HISTORY OF OTHER DISEASES OF TH 08/16/2017 GRAND TRAVERSE MD, ALONDRA D Ot Z88.0 ALLERGY STATUS [...] Z88.0 ALLERGY STATUS TO PENICILLIN 08/21/2017 ALONDRA PANIAGUA MD Ot Z88.5 ALLERGY STATUS [...] OTHER INTERVERTEBRAL DISC DISPLACEMENT, 08/21/2017 SWEET PA, ANADN R Ot M51.37 OTHER INTERVERTEBRAL DISC DEGENERATION, [...] POST MD Ot R07.89 OTHER CHEST PAIN 12/18/2017 MG PETER, MICHAEL Ot Z01.818 ENCOUNTER FOR OTHER PREPROCEDURAL EXAMIN 12/20/2017 RAS DE SANTIAGO DO Ot M47.812 SPONDYLOSIS W/O MYELOPATHY OR RADICULOPA 12/20/2017 RAS DE SANTIAGO DO Ot M48.02 SPINAL STENOSIS, CERVICAL REGION 12/20/2017 RAS DE SANTIAGO DO Ot M48.02 SPINAL STENOSIS, CERVICAL REGION 12/20/2017 RAS DE SANTIAGO DO Ot Z98.890 OTHER SPECIFIED POSTPROCEDURAL STATES 12/20/2017 ALEX POST MD, Ot I10 ESSENTIAL (PRIMARY) HYPERTENSION 12/20/2017 SINCERE PETER, ALEX Das Ot R07.89 OTHER CHEST PAIN 12/20/2017 SWEET PA, ANAND R Ot M43.16 SPONDYLOLISTHESIS, LUMBAR REGION 12/20/2017 SWEET PA, ANAND R Ot M46.87 OTH INFLAMMATORY SPONDYLOPATHIES, LUMBOS 12/20/2017 SWEET PA, ANAND R Ot M48.04 SPINAL STENOSIS, THORACIC REGION 12/20/2017 SWEET PA, ANAND R Ot M48.061 SPINAL STENOSIS, LUMBAR REGION WITHOUT N 12/20/2017 SWEET PA, ANAND R Ot M51.25 OTHER INTERVERTEBRAL DISC DISPLACEMENT, 12/20/2017 SWEET PA, ANAND R Ot M51.27 OTHER INTERVERTEBRAL DISC DISPLACEMENT, 12/20/2017 SWEET PA, ANAND R Ot M51.37 OTHER INTERVERTEBRAL DISC DEGENERATION, 12/20/2017 SWEET PA, ANAND R Ot 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A 12/20/2017 SWEET PA, ANAND R Ot W19.XXXA UNSPECIFIED FALL, INITIAL ENCOUNTER 12/20/2017 MICHAEL HOLLIDAY MD Ot F32.9 MAJOR DEPRESSIVE DISORDER, SINGLE EPISOD 12/20/2017 MICHAEL HOLLIDAY MD, Ot F41.9 ANXIETY DISORDER, UNSPECIFIED 12/20/2017 MICHAEL HOLLIDAY MD, Ot I10 ESSENTIAL (PRIMARY) HYPERTENSION 12/20/2017 MICHAEL HOLLIDAY MD, Ot K21.9 GASTRO-ESOPHAGEAL REFLUX DISEASE WITHOUT 12/20/2017 MICHAEL HOLLIDAY MD, Ot K22.2 ESOPHAGEAL OBSTRUCTION 12/20/2017 MICHAEL HOLLIDAY MD, Ot K29.50 UNSPECIFIED CHRONIC GASTRITIS WITHOUT BL 12/20/2017 MICHAEL HOLLIDAY MD, Ot Z79.899 OTHER RECEPTION INTERVIEWER (CURRENT) DRUG THERAPY 12/22/2017 MICHAEL HOLLIDAY MD, Ot F32.9 MAJOR DEPRESSIVE DISORDER, SINGLE EPISOD 12/22/2017 MICHAEL HOLLIDAY MD, Ot F41.9 ANXIETY DISORDER, UNSPECIFIED 12/22/2017 CHRIS HOLLIDAY MDKI Ot I10 ESSENTIAL (PRIMARY) HYPERTENSION 12/22/2017 MICHAEL HOLLIDAY MD Ot K21.9 GASTRO-ESOPHAGEAL REFLUX DISEASE WITHOUT 12/22/2017 MICHAEL HOLLIDAY MD Ot K22.2 ESOPHAGEAL OBSTRUCTION 12/22/2017 MICHAEL HOLLIDAY MD Ot K29.50 UNSPECIFIED CHRONIC GASTRITIS WITHOUT BL 12/22/2017 MICHAEL HOLLIDAY MD Ot Z79.899 OTHER HALFWAY (CURRENT) DRUG THERAPY 12/26/2017 MIHCAEL HOLLIDAY MD, Ot F32.9 MAJOR DEPRESSIVE DISORDER, SINGLE EPISOD 12/26/2017 MICHAEL HOLLIDAY MD, Ot F41.9 ANXIETY DISORDER, UNSPECIFIED 12/26/2017 MICHAEL HOLLIDAY MD Ot I10 ESSENTIAL (PRIMARY) HYPERTENSION 12/26/2017 MICHAEL HOLLIDAY MD Ot K21.9 GASTRO-ESOPHAGEAL REFLUX DISEASE WITHOUT 12/26/2017 MICHAEL HOLLIDAY MD Ot K22.2 ESOPHAGEAL OBSTRUCTION 12/26/2017 MICHAEL HOLLIDAY MD Ot K29.50 UNSPECIFIED CHRONIC GASTRITIS WITHOUT BL 12/26/2017 MICHAEL HOLLIDAY MD Ot Z79.899 OTHER HALFWAY (CURRENT) DRUG THERAPY 12/26/2017 MICHAEL HOLLIDAY MD, Ot F32.9 MAJOR DEPRESSIVE DISORDER, SINGLE EPISOD 12/26/2017 MICHAEL HOLLIDAY MD Ot F41.9 ANXIETY DISORDER, UNSPECIFIED 12/26/2017 ANAIS HOLLIDAY MDAAKI Ot I10 ESSENTIAL (PRIMARY) HYPERTENSION 12/26/2017 MICHAEL HOLLIDAY MD Ot K21.9 GASTRO-ESOPHAGEAL REFLUX DISEASE WITHOUT 12/26/2017 CHRIS HOLLIDAY MDKI Ot K22.2 ESOPHAGEAL OBSTRUCTION 12/26/2017 CHRIS HOLLIDAY MDKI Ot K29.50 UNSPECIFIED CHRONIC GASTRITIS WITHOUT BL 12/26/2017 MICHAEL HOLLIDAY MD Ot Z79.899 OTHER RECEPTION INTERVIEWER (CURRENT) DRUG THERAPY Procedures Code Description Performed By Performed On [id number] FUSION 2-6 C JT W INTBD FUS [...] ABO+Rh group AP NRG Transfusion band number [id number] NRG Blood group antibody screen NEGATIVE NRG [...] Status Pt. Type Provider Facility Loc./Unit Complaint [id number] 12/20/2017 09:29:00 12/20/2017 13:45:00 DIS Outpatient MICHAEL HOLLIDAY MD [facility] ENDO DYSPHAGIA [id number] 12/18/2017 05:40:00 12/18/2017 09:10:00 DIS Outpatient MICHAEL HOLLIDAY MD [facility] PREOP SCREENING [id number] 09/13/2017 11:58:00 09/13/2017 23:59:59 CLS Preadmit RAS DE SANTIAGO DO [facility] REHAB L4-L5 SPONDYLOLISTHESIS [id number] 08/19/2017 07:27:00 08/19/2017 23:59:59 CLS Outpatient ANAND DOTSON [facility] RAD BACK PAIN [id number] 08/16/2017 08:48:00 08/16/2017 09:39:00 DIS Emergency ARCELIA PETER, ALONDRA Villalobos [facility] ER LOWER BACK PAIN, LEG AND FEET PAIN [id number] 08/07/2017 06:56:00 08/07/2017 23:59:59 CLS Outpatient SINCERE PETER, ALEX Das [facility] CARD I10 HTN [id number] 08/01/2017 14:44:00 08/03/2017 11:07:00 DIS Inpatient DAREK PETER, LAY Lassiter [facility] 4TH CHEST PAIN;HTN [id number] 06/21/2017 21:25:00 06/21/2017 22:22:00 DIS Emergency ALEAH SIM APRN [facility] ER LAC LEFT HAND [id number] 05/26/2017 20:00:00 05/27/2017 06:35:00 DIS Outpatient ZA PETER, KELSEY Holm [facility] SLEEP G47.33 [id number] 03/23/2017 14:43:00 03/23/2017 23:59:59 CLS Outpatient RAS DE SANTIAGO DO [facility] RAD EXTREMITY WEAKNESS,CORD COMPRESSION [id number] 03/20/2017 09:11:00 03/21/2017 12:58:00 DIS Inpatient RAS DE SANTIAGO DO [facility] 4TH STENOSIS [id number] 03/13/2017 12:56:00 03/13/2017 13:40:00 DIS Outpatient RAS DE SANTIAGO DO [facility] PREOP STENOSIS [id number] 03/03/2017 20:37:00 03/04/2017 06:40:00 DIS Outpatient ALIYAH JUAN J ACCOUNT RECEIVABLE ASSOCIATE [facility] SLEEP ELENITA G47.33 [id number] 10/07/2016 09:27:00 10/07/2016 23:59:59 CLS Outpatient JONNATHANRAS GOLDEN DO [facility] RAD NECK PAIN [id number] 09/23/2015 20:00:00 09/24/2015 06:30:00 DIS Outpatient KELSEY MENDENHALL MD [facility] SLEEP OBSERVED APNEAS,ELENITA [id number] 04/27/2013 13:29:00 04/30/2013 14:22:00 DIS Outpatient ALEX POST MD [facility] CATH CHEST PAIN [id number] 08/09/2012 20:49:00 08/10/2012 06:55:00 DIS Outpatient KELSEY MENDENHALL MD [facility] SLEEP SLEEP APNEA [id number] 10/11/2016 14:22:00 Document Registration [id number] 05/31/2012 22:13:00 Document Registration [id number] 08/24/2017 14:41:00 08/24/2017 23:59:00 DIS Outpatient Nick Jolley [id number] 08/14/2017 15:13:00 08/14/2017 23:59:00 DIS Outpatient Nick Jolley [id number] 02/10/2017 10:01:00 02/10/2017 23:59:00 DIS Outpatient Nick Jolley [id number] 09/21/2016 13:38:00 09/21/2016 23:59:00 DIS Outpatient Nick Jolley [id number] 09/12/2016 13:41:00 Document Registration [id number] 09/14/2015 08:08:00 Document Registration
[2018-01-06] MEDS ORDERED: FAMOTIDINE 20 MG (PEPCID) TABLET PO STA (05:16)
[2018-01-06] MEDS ORDERED: ONDANSETRON 4 MG (ZOFRAN) ORAL DISSOLVE TAB SL STA (05:16)
[2018-01-06] MEDS ORDERED: BACL10TA (05:17)
[2018-01-06] MEDS ORDERED: CITA40TA11 (05:17)
--- NOTE | 2018-01-06 05:23 | ED Abdominal Pain ---
General Chief Complaint: Abdominal/GI Problems Stated Complaint: AMS,SOB,HIGH BLOOD PRESSURE Source of Information: Patient Exam Limitations: No Limitations (AIDE FRANCO) History of Present Illness Date Seen by Provider: Jan 06, 2018 Time Seen by Provider: 05:11 Initial Comments The patient presents to the ER by private conveyance with her significant other and chief complaint she's had for the past 6 days now some burning sensation in her epigastric region radiating up through her chest. She says she has a history of gastritis and had a recent EGD done about a month ago by Dr. Galvez. She was put on Protonix which she's been taking daily. She feels like this past couple days it has not helped and today was getting so bad she decided to come the ER. She has no history of heart disease or coronary disease but she doesn't history of congestive heart failure. She's not feeling any shortness of breath, cough, fevers chills or diarrhea. She thought maybe she was constipated so she took a laxative 2 days ago and had a normal formed stool yesterday. She has a history of hysterectomy, gallbladder removal and some kind of hernia repair. No known history of pancreatitis, diabetes, hypercholesterolemia or hypertriglyceridemia. (AIDE FRANCO) Allergies and Home Medications Allergies Coded Allergies: Penicillins (Verified Allergy, Unknown, 12/18/17) codeine (Verified Allergy, Unknown, Pt has had Hydrocodone w/o issue, 12/18) oxycodone (Verified Allergy, Unknown, Pt has had Hydrocodone w/o issue, ) Home Medications Escitalopram Oxalate 20 Mg Tablet, 20 MG PO DAILY, (Reported) Furosemide 20 Mg Tablet, 20 MG PO DAILY, (Reported) Lisinopril 20 Mg Tablet, 20 MG PO DAILY, (Reported) Metoprolol Succinate 50 Mg Tab.er.24h, 50 MG PO DAILY Prescribed by: CARLEY BENITES on 08/03/17 0928 Pantoprazole Sodium 40 Mg Tablet.dr, 40 MG PO DAILY, (Reported) Patient Home Medication List Home Medication List Reviewed: Yes (AIDE FRANCO) Review of Systems Review of Systems Constitutional: No chills, No diaphoresis EENTM: No Blurred Vision, No Double Vision Respiratory: Denies Cough, Denies Shortness of Air Cardiovascular: Denies Chest Pain, Denies Edema Gastrointestinal: Denies Abdomen Distended; Abdominal Pain; Denies Constipated , Denies Diarrhea; Nausea, Poor Fluid Intake; Denies Vomiting Genitourinary: Denies Burning, Denies Discharge Musculoskeletal: No back pain, No joint pain Skin: No pruritus, No rash Psychiatric/Neurological: Denies Headache, Denies Numbness, Denies Paresthesia (AIDE FRANCO) Past Infhlis-Csobae-Zfxebh Hx Patient Social History Alcohol Use: Denies Use Recreational Drug Use: No Recent Foreign Travel: No Contact w/Someone Who Travel: No Recent Hopitalizations: No (AIDE FRANCO) Immunizations Up To Date Tetanus Booster (TDap): Less than 5yrs PED Vaccines UTD: No Date of Pneumonia Vaccine: Apr 27, 2012 Date of Influenza Vaccine: Feb 01, 2013 (AIDE FRANCO) Seasonal Allergies Seasonal Allergies: Yes (AIDE FRANCO) Past Medical History Surgeries: Yes (HIATAL HERNIA REPAIR,NECK) Abdominal, Gallbladder, Hysterectomy Respiratory: Yes (ARDS-ON VENTILATOR X 10 DAYS 2012) Pneumonia, Sleep Apnea, COPD Currently Using CPAP: Yes Cardiac: Yes (ADMITTED WITH CHEST PAIN 07/31/17) Hypertension Neurological: No Reproductive Disorders: 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 Sexually Transmitted Disease: No HIV/AIDS: No Genitourinary: No Gastrointestinal: Yes Abdominal Hernia, Gastroesophageal Reflux, Irritable Bowel Musculoskeletal: Yes (STENOSIS) Arthritis Endocrine: No HEENT: No Loss of Vision: Bilateral Hearing Impairment: Denies Cancer: No Psychosocial: Yes Sleep Difficulties, Anxiety, Depression Integumentary: No Blood Disorders: No Adverse Reaction/Blood Tranf: No (N/A) (AIDE FRANCO) Family Medical History Cancer 03 MOTHER 09 SISTER Congestive heart failure 03 FATHER Family history: Breast disease 03 MOTHER Family history: Cardiovascular disease 03 FATHER 09 SISTER Family history: Coronary thrombosis Family history: Diabetes mellitus 09 BROTHER Family history: Hypertension 03 FATHER 03 MOTHER 09 SISTER 09 SISTER 09 SISTER Family history: Thyroid disorder 09 SISTER Headache 09 SISTER Heart disease 03 FATHER Myocardial infarction 03 FATHER 09 BROTHER Heart Disease, Cancer, CVA, Diabetes (AIDE FRANCO) Physical Exam Vital Signs Vital Signs - First Documented 01/06/18 05:10 Temp 96.6 Pulse 73 Resp 20 B/P (MAP) 197/98 (131) Pulse Ox 98 O2 Delivery Room Air (ALONDRA PANIAGUA MD) Vital Signs Capillary Refill : (AIDE FRANCO) Height/Weight/BMI Height: 5'0.00" Weight: 234lbs. 9.6oz. 106.977864ra; 45.8 BMI Method:Stated General Appearance: no apparent distress, obese HEENT: PERRL/EOMI, pharynx normal Neck: non-tender, normal inspection Respiratory: chest non-tender, lungs clear, normal breath sounds, no respiratory distress, no accessory muscle use Cardiovascular: normal peripheral pulses, regular rate, rhythm Gastrointestinal: normal bowel sounds, soft, no organomegaly; No guarding, No rebound; tenderness (epigastric region) Extremities: normal range of motion, non-tender, normal inspection, normal capillary refill Neurologic/Psychiatric: alert, normal mood/affect, oriented x 3 Skin: normal color, warm/dry (AIDE FRANCO) Procedures/Interventions Suture Size: 5-0 (AIDE FRANCO) Progress/Results/Core Measures Results/Orders Lab Results Laboratory Tests Test 01/06/18 05:25 Range/Units White Blood Count 7.8 4.3-11.0 10^3/uL Red Blood Count 3.81 L 4.35-5.85 10^6/uL Hemoglobin 13.1 11.5-16.0 G/DL Hematocrit 39 35-52 % Mean Corpuscular Volume 101 H 80-99 FL Mean Corpuscular Hemoglobin 34 25-34 PG Mean Corpuscular Hemoglobin Concent 34 32-36 G/DL Red Cell Distribution Width 13.1 10.0-14.5 % Platelet Count 184 130-400 10^3/uL Mean Platelet Volume 11.3 H 7.4-10.4 FL Neutrophils (%) (Auto) 65 42-75 % Lymphocytes (%) (Auto) 23 12-44 % Monocytes (%) (Auto) 7 0-12 % Eosinophils (%) (Auto) 5 0-10 % Basophils (%) (Auto) 0 0-10 % Neutrophils # (Auto) 5.1 1.8-7.8 X 10^3 Lymphocytes # (Auto) 1.8 1.0-4.0 X 10^3 Monocytes # (Auto) 0.6 0.0-1.0 X 10^3 Eosinophils # (Auto) 0.4 H 0.0-0.3 10^3/uL Basophils # (Auto) 0.0 0.0-0.1 10^3/uL Sodium Level 140 135-145 MMOL/L Potassium Level 4.6 3.6-5.0 MMOL/L Chloride Level 106 98-107 MMOL/L Carbon Dioxide Level 22 21-32 MMOL/L Anion Gap 12 5-14 MMOL/L Blood Urea Nitrogen 23 H 7-18 MG/DL Creatinine 0.94 0.60-1.30 MG/DL Estimat Glomerular Filtration Rate > 60 BUN/Creatinine Ratio 24 Glucose Level 92 70-105 MG/DL Calcium Level 9.0 8.5-10.1 MG/DL Corrected Calcium 9.1 8.5-10.1 MG/DL Magnesium Level 2.6 H 1.8-2.4 MG/DL Total Bilirubin 0.2 0.1-1.0 MG/DL Aspartate Amino Transf (AST/SGOT) 20 5-34 U/L Alanine Aminotransferase (ALT/SGPT) 22 0-55 U/L Alkaline Phosphatase 73 40-136 U/L Troponin I < 0.30 <0.30 NG/ML C-Reactive Protein High Sensitivity 0.54 H 0.00-0.50 MG/DL Total Protein 6.6 6.4-8.2 GM/DL Albumin 3.9 3.2-4.5 GM/DL Lipase 15 8-78 U/L Smear Scan YES (ALONDRA PANIAGUA MD) Medications Given in ED Current Medications Medications Dose Ordered Sig/Ruba Route Start Time Stop Time Status Last Admin Dose Admin Al Hydrox/Mg Hydrox/Simethicone 30 ml ONCE ONCE PO 01/06/18 05:30 01/06/18 05:31 DC 01/06/18 05:31 30 ML Lidocaine HCl 15 ml ONCE ONCE PO 01/06/18 05:30 01/06/18 05:31 DC 01/06/18 05:31 15 ML (ALONDRA PANIAGUA MD) Vital Signs/I&O 01/06/18 05:10 Temp 96.6 Pulse 73 Resp 20 B/P (MAP) 197/98 (131) Pulse Ox 98 O2 Delivery Room Air (ALONDRA PANIAGUA MD) Progress Progress Note : Time: 05:22 Progress Note She had an EGD done in December 20, [address] Galvez with balloon dilatation. History of reflux esophagitis stage III with distal esophageal stricture. Intact previous antireflux procedure. Moderate to severe gastritis with no formal ulceration and no obstruction. The patient's follow Dr. Galvez since 2013 for this epigastric chest discomfort abdominal discomfort, reflux and dysphagia. She has a history of a Thiago fundoplication 2008 and balloon dilatations as far back at least is 2008. No history of formal ulceration, polyps or neoplasms. She has a brother with myocardial infarction age 51. [address] Lepe: She's had a cardiac catheterization 2008 showing mild to moderate disease. 2-D echocardiogram August 2017 within normal limits ejection fraction of 60%. Stress test 2017 showed an ejection fraction of 78% and no significant ischemia or infarction. This sounds like gastroesophageal reflux disease given her long-standing history of esophagitis but she has some familial risk factors for coronary disease. Since his been going on for the last 5 days we'll check a troponin and EKG. (AIDE FRANCO) Progress Note : Progress Note 0640: I have assumed care of the patient from Dr. Franco pending troponin and chest x-ray. I have reviewed both of these as well as the rest of the labs and there are no significant findings. Patient is much better after GI cocktail that was given earlier. Currently without significant pain. She does follow with Dr. Galvez. We did discuss outpatient options and we will initiate Carafate outpatient and have her see Dr. Galvez within one week. Patient was very comfortable with this. Discharged home with return precautions. Patient verbalize understanding instructions and agreement with plan. (ALONDRA PANIAGUA MD) Initial ECG Impression Date: Jan 06, 2018 Initial ECG Impression Time: 05:33 Initial ECG Rate: 65 Initial ECG Rhythm: Normal Sinus Initial ECG Intervals: Normal Initial ECG Impression: Normal Initial ECG Comparisson: Unchanged Comment No ST elevation or depression. (AIDE FRANCO) Diagnostic Imaging Diagonstic Imaging: Xray Plain Films/CT/US/NM/MRI: chest (1v) Reviewed: Reviewed by Me (AIDE FRANCO) Transfer of Care Time: 06:01 Care transferred to: Dr. Paniagua (AIDE FRANCO) Departure Impression Primary Impression: Epigastric abdominal pain Disposition: 01 HOME, SELF-CARE Condition: Improved Departure-Patient Inst. Decision time for Depature: 06:44 (ALONDRA PANIAGUA MD) Referrals: YAZ MOJICA DO (PCP/Family) Primary Care Physician Patient Instructions: Acute Abdomen (Belly Pain), Adult (DC) Add. Discharge Instructions: All discharge instructions reviewed with patient and/or family. Voiced understanding. Take medications as directed. Follow-up with Dr. Galvez this week for recheck and further evaluation. You may also take [id number] Pepcid/famotidine 20 mg once or twice daily as needed for burning. Return for worse pain, fever, vomiting, weakness, breathing problems or other concerns as needed. Scripts Sucralfate (Sucralfate) 1 Gm Tablet 1 GM PO ACHS, #60 TAB Chew tablet to a slurry and then swallow Prov: ALONDRA PANIAGUA MD 01/06/18 Copy Copies To 1: MICHAEL GALVEZ MD, TITUS J Jan 06, 2018 05:23 ALONDRA PANIAGUA MD Jan 06, 2018 06:47
[2018-01-06] MEDS ORDERED: LIDOCAINE 2% VISCOUS 15 ML UDC PO ONE (05:30)
[2018-01-06] MEDS ORDERED: ANTACID SUSP 30 ML UDC (MYLANTA) PO ONE (05:30)
[2018-01-06 05:38] LABS: BASOPHILS % (AUTO) 0 % (0-10); EOSINOPHILS # (AUTO) 0.4 10^3/uL (0.0-0.3); EOSINOPHILS % (AUTO) 5 % (0-10); HEMATOCRIT 39 % (35-52); HEMOGLOBIN 13.1 G/DL (11.5-16.0); LYMPHOCYTES # (AUTO) 1.8 X 10^3 (1.0-4.0); LYMPHOCYTES % (AUTO) 23 % (12-44); MEAN CORPUSCULAR HEMOGLOBIN 34 PG (25-34); MEAN CORPUSCULAR HGB CONC 34 G/DL (32-36); MEAN CORPUSCULAR VOLUME 101 FL (80-99); MEAN PLATELET VOLUME 11.3 FL (7.4-10.4); MONOCYTES # (AUTO) 0.6 X 10^3 (0.0-1.0); MONOCYTES % (AUTO) 7 % (0-12); NEUTROPHILS # (AUTO) 5.1 X 10^3 (1.8-7.8); NEUTROPHILS % (AUTO) 65 % (42-75); PLATELET COUNT 184 10^3/uL (130-400); RED BLOOD COUNT 3.81 10^6/uL (4.35-5.85); RED CELL DISTRIBUTION WIDTH 13.1 % (10.0-14.5); WHITE BLOOD COUNT 7.8 10^3/uL (4.3-11.0)
[2018-01-06 05:59] LABS: ALANINE AMINOTRANSFERASE 22 U/L (0-55); ALBUMIN 3.9 GM/DL (3.2-4.5); ALKALINE PHOSPHATASE 73 U/L (40-136); BILIRUBIN,TOTAL 0.2 MG/DL (0.1-1.0); BUN/CREATININE RATIO 24; CARBON DIOXIDE 22 MMOL/L (21-32); CHLORIDE 106 MMOL/L (98-107); CREATININE SERUM 0.94 MG/DL (0.60-1.30); GFR ESTIMATED > 60; GLUCOSE 92 MG/DL (70-105); LIPASE 15 U/L (8-78); MAGNESIUM 2.6 MG/DL (1.8-2.4); POTASSIUM 4.6 MMOL/L (3.6-5.0); SODIUM 140 MMOL/L (135-145); TOTAL PROTEIN 6.6 GM/DL (6.4-8.2)
--- NOTE | 2018-01-06 06:46 | Diagnostic Imaging Report ---
INDICATION: Shortness of breath COMPARISON: 07/31/2017 FINDINGS: Single view of the chest demonstrate clear lungs bilaterally. The heart is prominent but stable. There is no pneumothorax. The osseous structures are age-appropriate. IMPRESSION: Stable cardiac enlargement without pulmonary edema or infiltrate. Dictated by: Dictated on workstation # [id number]
[2018-01-06] MEDS ORDERED: SUCR1TAB PO (06:47)
[2018-01-06 07:04] VITALS: BP 147/69
== END 2018-01-06 07:05 | disposition home or self-care (01) ==
LOC: EDUNIT# 04:57 → ER 05:01
DX: R10.13 Epigastric pain (principal); R06.02 Shortness of breath; G47.30 Sleep apnea, unspecified; J44.9 Chronic obstructive pulmonary disease, unspecified; I10 Essential (primary) hypertension; K21.9 Gastro-esophageal reflux disease without esophagitis; F41.9 Anxiety disorder, unspecified; F32.9 Major depressive disorder, single episode, unspecified; Z82.49 Family history of ischemic heart disease and other diseases of the circulatory system; Z87.19 Personal history of other diseases of the digestive system; Z88.0 Allergy status to penicillin; Z88.5 Allergy status to narcotic agent; Z90.710 Acquired absence of both cervix and uterus; Z98.890 Other specified postprocedural states; Z87.01 Personal history of pneumonia (recurrent)
CPT/HCPCS: 36415; 71045; 80053; 83690; 83735; 84484; 85025; 86141; 93005

== ENCOUNTER 2018-01-08 15:08 | Emergency (ER) | payer MEDICARE, OTHER ==
[~2018-01-08] VITALS: Ht 152.4 cm; Wt 106.6 kg
[~2018-01-08 15:08] MED LIST changes: +BACL10TA; +CITA40TA11; +SUCR1TAB PO
--- OUTSIDE RECORDS SUMMARY | 2018-01-08 15:17 | XMS REPORT | Continuity of Care Document ---
Author Author [facility] Organization [facility] Address Unknown Phone Unavailable Allergies Active Description Code Type Severity Reaction Onset Reported/Identified Relationship to Patient Clinical Status Yes CODEINE SULFATE MILD OTHER Yes OXYCODONE MILD ITCHING Yes codeine [id number] Drug Allergy Unknown N/A 03/20/2017 Yes oxycodone [id number] Drug Allergy Unknown N/A 03/20/2017 Yes codeine [id number] Drug Allergy Unknown Pt has had Hydr 12/18/2017 Yes oxycodone [id number] Drug Allergy Unknown Pt has had Hydr 12/18/2017 Yes Penicillins [id number] Drug Allergy Unknown N/A 12/18/2017 Medications There is no data. Problems Date Dx Coded Attending Type Code Diagnosis Diagnosed By 06/01/2012 Ot 786.05 SHORTNESS OF BREATH 06/01/2012 Ot 786.09 RESPIRATORY ABNORM NEC 06/01/2012 Ot V12.61 PERSONAL HISTORY, PNEUMONIA (RECURRENT) 06/01/2012 Ot V58.69 OTH MED,LT, CURRENT USE 08/10/2012 KELSEY MENDENHALL MD Ot 327.23 OBSTRUCTIVE SLEEP APNEA (ADULT) (PEDIATR 08/10/2012 ZA PETER, KELSEY Holm Ot 327.51 PERIODIC LIMB MOVEMENT DISORDER 04/30/2013 ALEX POST MD Ot 272.4 HYPERLIPIDEMIA NEC/NOS 04/30/2013 ALEX POST MD Ot 401.9 HYPERTENSION NOS 04/30/2013 ALEX POST MD Ot 414.01 CORONARY ATHEROSCLEROSIS OF [place] CORON 04/30/2013 ALEX POST MD Ot 427.89 CARDIAC DYSRHYTHMIAS NEC 04/30/2013 ALEX POST MD Ot 530.11 REFLUX ESOPHAGITIS 04/30/2013 ALEX POST MD Ot 530.3 ESOPHAGEAL STRICTURE 04/30/2013 ALEX POST MD Ot 535.50 UNSP GASTRITIS GASTRODUODENITIS W/O ME 04/30/2013 SINCERE PETER, ALEX Das Ot V58.69 OT MED,LT,CURRENT USE [...] M48.02 SPINAL STENOSIS, CERVICAL REGION 03/03/2017 JUAN LY ASSEMBLY LINE INSPECTOR Ot G47.33 OBSTRUCTIVE SLEEP APNEA (ADULT) (PEDIATR [...] MD Ot I25.10 ATHSCL HEART DISEASE OF [place] CORONARY 08/03/2017 LAY OSWALD MD Ot J30.2 OTHER SEASONAL ALLERGIC RHINITIS 08/03/2017 LAY OSWALD MD Ot J44.9 CHRONIC OBSTRUCTIVE PULMONARY DISEASE, U 08/03/2017 LAY OSWALD MD, Ot K21.9 GASTRO-ESOPHAGEAL REFLUX DISEASE WITHOUT 08/03/2017 [...] MD Ot I25.10 ATHSCL HEART DISEASE OF [place] CORONARY 08/09/2017 LAY OSWALD MD Ot J30.2 [...] MD Ot I25.10 ATHSCL HEART DISEASE OF [place] CORONARY 08/09/2017 LAY OSWALD MD Ot J30.2 [...] MD Ot I25.10 ATHSCL HEART DISEASE OF [place] CORONARY 08/09/2017 LAY OSWALD MD Ot J30.2 [...] M54.16 RADICULOPATHY, LUMBAR REGION 08/16/2017 ALONDRA PANIAGUA MD Ot M54.5 LOW BACK PAIN 08/16/2017 ALONDRA PANIAGUA MD Ot Z82.49 FAMILY HX OF ISCHEM HEART DIS AND OTH DI 08/16/2017 ALONDRA PANIAGUA MD Ot Z87.01 PERSONAL HISTORY OF PNEUMONIA (RECURRENT 08/16/2017 ALONDRA PANIAGUA MD Ot Z87.19 PERSONAL HISTORY OF OTHER DISEASES OF TH 08/16/2017 ALONDRA PANIAGUA MD Ot Z88.0 ALLERGY STATUS TO PENICILLIN 08/16/2017 [...] ABDOMEN 08/24/2017 Nick Jolley W R11.0 NAUSEA 08/24/2017 Nick Jolley W 787.02 NAUSEA ALONE [...] 12/20/2017 MICHAEL HOLLIDAY MD, Ot Z79.899 OTHER WIG DRESSER (CURRENT) DRUG THERAPY 12/22/2017 MICHAEL HOLLIDAY MD Ot F32.9 MAJOR DEPRESSIVE DISORDER, SINGLE EPISOD 12/22/2017 MICHAEL HOLLIDAY MD Ot F41.9 ANXIETY DISORDER, UNSPECIFIED 12/22/2017 MICHAEL HOLLIDAY MD Ot I10 ESSENTIAL (PRIMARY) HYPERTENSION 12/22/2017 MICHAEL HOLLIDAY MD Ot K21.9 GASTRO-ESOPHAGEAL REFLUX DISEASE WITHOUT 12/22/2017 MICHAEL HOLLIDAY MD Ot K22.2 ESOPHAGEAL OBSTRUCTION 12/22/2017 MICHAEL HOLLIDAY MD Ot K29.50 UNSPECIFIED CHRONIC GASTRITIS WITHOUT BL 12/22/2017 MICHAEL HOLLIDAY MD Ot Z79.899 OTHER SKILLED NURSING (CURRENT) DRUG THERAPY 12/26/2017 MICHAEL HOLLIDAY MD, Ot F32.9 MAJOR DEPRESSIVE DISORDER, SINGLE EPISOD 12/26/2017 MICHAEL HOLLIDAY MD Ot F41.9 ANXIETY DISORDER, UNSPECIFIED 12/26/2017 MICHAEL HOLLIDAY MD Ot I10 ESSENTIAL (PRIMARY) HYPERTENSION 12/26/2017 MICHAEL HOLLIDAY MD Ot K21.9 GASTRO-ESOPHAGEAL REFLUX DISEASE WITHOUT 12/26/2017 MICHAEL HOLLIDAY MD Ot K22.2 ESOPHAGEAL OBSTRUCTION 12/26/2017 MICHAEL HOLLIDAY MD Ot K29.50 UNSPECIFIED CHRONIC GASTRITIS WITHOUT BL 12/26/2017 MICHAEL HOLLIDAY MD Ot Z79.899 OTHER SKILLED NURSING (CURRENT) DRUG THERAPY 12/26/2017 MICHAEL HOLLIDAY MD Ot F32.9 MAJOR DEPRESSIVE DISORDER, SINGLE EPISOD 12/26/2017 MICHAEL HOLLIDAY MD Ot F41.9 ANXIETY DISORDER, UNSPECIFIED 12/26/2017 CHRIS HOLLIDAY MDKI Ot I10 ESSENTIAL (PRIMARY) HYPERTENSION 12/26/2017 MICHAEL HOLLIDAY MD Ot K21.9 GASTRO-ESOPHAGEAL REFLUX DISEASE WITHOUT 12/26/2017 CHRIS HOLLIDAY MDKI Ot K22.2 ESOPHAGEAL OBSTRUCTION 12/26/2017 MICHAEL HOLLIDAY MD Ot K29.50 UNSPECIFIED CHRONIC GASTRITIS WITHOUT BL 12/26/2017 MICHAEL HOLLIDAY MD Ot Z79.899 OTHER SKILLED NURSING (CURRENT) DRUG THERAPY 01/06/2018 RAS DE SANTIAGO DO Ot M47.812 SPONDYLOSIS W/O MYELOPATHY OR RADICULOPA 01/06/2018 RAS DE SANTIAGO DO Ot M48.02 SPINAL STENOSIS, CERVICAL REGION 01/06/2018 RAS DE SANTIAGO DO Ot M48.02 SPINAL STENOSIS, CERVICAL REGION 01/06/2018 RAS DE SANTIAGO DO Ot Z98.890 OTHER SPECIFIED POSTPROCEDURAL STATES 01/06/2018 ALEX POST MD, Ot I10 ESSENTIAL (PRIMARY) HYPERTENSION 01/06/2018 ALEX POST MD Ot R07.89 OTHER CHEST PAIN 01/06/2018 SWEET PA, ANAND R Ot M43.16 SPONDYLOLISTHESIS, LUMBAR REGION 01/06/2018 SWEET PA, ANAND R Ot M46.87 OTH INFLAMMATORY SPONDYLOPATHIES, LUMBOS 01/06/2018 SWEET PA, ANAND R Ot M48.04 SPINAL STENOSIS, THORACIC REGION 01/06/2018 SWEET PA, ANAND R Ot M48.061 SPINAL STENOSIS, LUMBAR REGION WITHOUT N 01/06/2018 SWEET PA, ANAND R Ot M51.25 OTHER INTERVERTEBRAL DISC DISPLACEMENT, 01/06/2018 SWEET PA, ANAND R Ot M51.27 OTHER INTERVERTEBRAL DISC DISPLACEMENT, 01/06/2018 SWEET PA, ANAND R Ot M51.37 OTHER INTERVERTEBRAL DISC DEGENERATION, 01/06/2018 SWEET PA, ANAND R Ot 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A 01/06/2018 SWEET PA, ANAND R Ot W19.XXXA UNSPECIFIED FALL, INITIAL ENCOUNTER 01/08/2018 ALONDRA PANIAGUA MD Ot F32.9 MAJOR DEPRESSIVE DISORDER, SINGLE EPISOD 01/08/2018 ALONDRA PANIAGUA MD, Ot F41.9 ANXIETY DISORDER, UNSPECIFIED 01/08/2018 ALONDRA PANIAGUA MD, Ot G47.30 SLEEP APNEA, UNSPECIFIED 01/08/2018 ALONDRA PANIAGUA MD Ot I10 ESSENTIAL (PRIMARY) HYPERTENSION 01/08/2018 ALONDRA PANIAGUA MD, Ot J44.9 CHRONIC OBSTRUCTIVE PULMONARY DISEASE, U 01/08/2018 ALONDRA PANIAGUA MD, Ot K21.9 GASTRO-ESOPHAGEAL REFLUX DISEASE WITHOUT 01/08/2018 ALONDRA PANIAGUA MD Ot R06.02 SHORTNESS OF BREATH 01/08/2018 ALONDRA PANIAGUA MD, Ot R10.13 EPIGASTRIC PAIN 01/08/2018 ALONDRA PANIAGUA MD, Ot Z82.49 FAMILY HX OF ISCHEM HEART DIS AND OTH DI 01/08/2018 ALONDRA PANIGAUA MD, Ot Z87.01 PERSONAL HISTORY OF PNEUMONIA (RECURRENT 01/08/2018 ALONDRA PANIAGUA MD Ot Z87.19 PERSONAL HISTORY OF OTHER DISEASES OF TH 01/08/2018 ALONDRA PANIAGUA MD, Ot Z88.0 ALLERGY STATUS TO PENICILLIN 01/08/2018 ALONDRA PANIAGUA MD, Ot Z88.5 ALLERGY STATUS TO NARCOTIC AGENT STATUS 01/08/2018 ALONDRA PANIAGUA MD, Ot Z90.710 ACQUIRED ABSENCE OF BOTH CERVIX AND UTER 01/08/2018 ALONDRA PANIAGUA MD Ot Z98.890 OTHER SPECIFIED POSTPROCEDURAL STATES Procedures Code Description Performed By Performed On [id number] FUSION 2-6 C JT W INTBD FUS [...] ABO+Rh group AP NRG Transfusion band number [id number] NRG Blood group antibody screen NEGATIVE NRG [...] - 08/24/17 14:47 Lipase 28 U/L 7-59 Complete blood count (CBC) with automated white blood cell (WBC) differential - 01/06/18 05:25 Blood leukocytes automated count (number/volume) 7.8 10*3/uL 4.3-11.0 Blood erythrocytes automated count (number/volume) 3.81 10*6/uL 4.35-5.85 Venous blood hemoglobin measurement (mass/volume) 13.1 g/dL 11.5-16.0 Blood hematocrit (volume fraction) 39 % 35-52 Automated erythrocyte mean corpuscular volume 101 [foz_us] 80-99 Automated erythrocyte mean corpuscular hemoglobin (mass per erythrocyte) 34 pg 25-34 Automated erythrocyte mean corpuscular hemoglobin concentration measurement ( mass/volume) 34 g/dL 32-36 Automated erythrocyte distribution width ratio 13.1 % 10.0-14.5 Automated blood platelet count (count/volume) 184 10*3/uL 130-400 Automated blood platelet mean volume measurement 11.3 [foz_us] 7.4-10.4 Automated blood neutrophils/100 leukocytes 65 % 42-75 Automated blood lymphocytes/100 leukocytes 23 % 12-44 Blood monocytes/100 leukocytes 7 % 0-12 Automated blood eosinophils/100 leukocytes 5 % 0-10 Automated blood basophils/100 leukocytes 0 % 0-10 Blood neutrophils automated count (number/volume) 5.1 10*3 1.8-7.8 Blood lymphocytes automated count (number/volume) 1.8 10*3 1.0-4.0 Blood monocytes automated count (number/volume) 0.6 10*3 0.0-1.0 Automated eosinophil count 0.4 10*3/uL 0.0-0.3 Automated blood basophil count (count/volume) 0.0 10*3/uL 0.0-0.1 Blood blood smear finding identification by light microscopy [facility] Comprehensive metabolic panel - 01/06/18 05:25 Serum or plasma sodium measurement (moles/volume) 140 mmol/L 135-145 Serum or plasma potassium measurement (moles/volume) 4.6 mmol/L 3.6-5.0 Serum or plasma chloride measurement (moles/volume) 106 mmol/L 98-107 Carbon dioxide 22 mmol/L 21-32 Serum or plasma anion gap determination (moles/volume) 12 mmol/L 5-14 Serum or plasma urea nitrogen measurement (mass/volume) 23 mg/dL 7-18 Serum or plasma creatinine measurement (mass/volume) 0.94 mg/dL 0.60-1.30 Serum or plasma urea nitrogen/creatinine mass ratio 24 NR Serum or plasma creatinine measurement with calculation of estimated glomerular filtration rate > [facility] Serum or plasma glucose measurement (mass/volume) 92 mg/dL 70-105 Serum or plasma calcium measurement (mass/volume) 9.0 mg/dL 8.5-10.1 Serum or plasma total bilirubin measurement (mass/volume) 0.2 mg/dL 0.1-1.0 Serum or plasma alkaline phosphatase measurement (enzymatic activity/volume) 73 U/L 40-136 Serum or plasma aspartate aminotransferase measurement (enzymatic activity/ volume) 20 U/L 5-34 Serum or plasma alanine aminotransferase measurement (enzymatic activity/volume ) 22 U/L 0-55 Serum or plasma protein measurement (mass/volume) 6.6 g/dL 6.4-8.2 Serum or plasma albumin measurement (mass/volume) 3.9 g/dL 3.2-4.5 CALCIUM CORRECTED 9.1 mg/dL 8.5-10.1 Magnesium - 01/06/18 05:25 Magnesium 2.6 mg/dL 1.8-2.4 Serum or plasma troponin i.cardiac measurement (mass/volume) - 01/06/18 05:25 Serum or plasma troponin i.cardiac measurement (mass/volume) < ng/ mL <0.30 Lipase - 01/06/18 05:25 Lipase 15 U/L 8-78 Serum or plasma C reactive protein measurement (mass/volume) - 01/06/18 05:25 Serum or plasma C reactive protein measurement (mass/volume) 0.54 mg /dL 0.00-0.50 Encounters ACCT No. Visit Date/Time Discharge Status Pt. Type Provider Facility Loc./Unit Complaint [id number] 01/06/2018 05:01:00 01/06/2018 07:05:00 DIS Outpatient ALONDRA PANIAGUA MD [facility] ER AMS,SOB,HIGH BLOOD PRESSURE [id number] 12/20/2017 09:29:00 12/20/2017 13:45:00 DIS Outpatient MICHAEL HOLLIDAY MD [facility] ENDO DYSPHAGIA [id number] 12/18/2017 05:40:00 12/18/2017 09:10:00 DIS Outpatient MICHAEL HOLLIDAY MD [facility] PREOP SCREENING [id number] 09/13/2017 11:58:00 09/13/2017 23:59:59 CLS Preadmit RAS DE SANTIAGO DO [facility] REHAB L4-L5 SPONDYLOLISTHESIS [id number] 08/19/2017 07:27:00 08/19/2017 23:59:59 CLS Outpatient ANAND DOTSON [facility] RAD BACK PAIN [id number] 08/16/2017 08:48:00 08/16/2017 09:39:00 DIS Emergency ALONDRA PANIAGUA MD [facility] ER LOWER BACK PAIN, LEG AND FEET PAIN [id number] 08/07/2017 06:56:00 08/07/2017 23:59:59 CLS Outpatient ALEX POST MD [facility] CARD I10 HTN [id number] 08/01/2017 14:44:00 08/03/2017 11:07:00 DIS Inpatient LAY OSWALD MD [facility] 4TH CHEST PAIN;HTN [id number] 06/21/2017 21:25:00 06/21/2017 22:22:00 DIS Emergency ALEAH SIM APRN [facility] ER LAC LEFT HAND [id number] 05/26/2017 20:00:00 05/27/2017 06:35:00 DIS Outpatient KELSEY MENDENHALL MD [facility] SLEEP G47.33 [id number] 03/23/2017 14:43:00 03/23/2017 23:59:59 CLS Outpatient RAS DE SANTIAGO DO [facility] RAD EXTREMITY WEAKNESS,CORD COMPRESSION [id number] 03/20/2017 09:11:00 03/21/2017 12:58:00 DIS Inpatient RAS DE SANTIAGO DO [facility] 4TH STENOSIS [id number] 03/13/2017 12:56:00 03/13/2017 13:40:00 DIS Outpatient RAS DE SANTIAGO DO [facility] PREOP STENOSIS [id number] 03/03/2017 20:37:00 03/04/2017 06:40:00 DIS Outpatient JUAN LY ASSEMBLY LINE INSPECTOR [facility] SLEEP ELENITA G47.33 [id number] 10/07/2016 09:27:00 10/07/2016 23:59:59 CLS Outpatient RAS DE SANTIAGO DO [facility] RAD NECK PAIN [id number] 09/23/2015 20:00:00 09/24/2015 06:30:00 DIS Outpatient KELSEY MENDENHALL MD [facility] SLEEP OBSERVED APNEAS,ELENITA [id number] 04/27/2013 13:29:00 04/30/2013 14:22:00 DIS Outpatient ALEX POST MD [facility] CATH CHEST PAIN [id number] 08/09/2012 20:49:00 08/10/2012 06:55:00 DIS Outpatient KELSEY MENDENHALL MD [facility] SLEEP SLEEP APNEA [id number] 10/11/2016 14:22:00 Document Registration [id number] 05/31/2012 22:13:00 Document Registration [id number] 08/24/2017 14:41:00 08/24/2017 23:59:00 DIS Outpatient Nick Jolley [id number] 08/14/2017 15:13:00 08/14/2017 23:59:00 DIS Outpatient Nick Jolley [id number] 02/10/2017 10:01:00 02/10/2017 23:59:00 DIS Outpatient Nick Jolley [id number] 09/21/2016 13:38:00 09/21/2016 23:59:00 DIS Outpatient Nick Jolley [id number] 01/08/2018 14:03:14 Document Registration [id number] 09/12/2016 13:41:00 Document Registration [id number] 09/14/2015 08:08:00 Document Registration
[2018-01-08 17:09] LABS: BASOPHILS % (AUTO) 0 % (0-10); EOSINOPHILS # (AUTO) 0.2 10^3/uL (0.0-0.3); EOSINOPHILS % (AUTO) 2 % (0-10); HEMATOCRIT 37 % (35-52); HEMOGLOBIN 13.3 G/DL (11.5-16.0); LYMPHOCYTES % (AUTO) 19 % (12-44); MEAN CORPUSCULAR HEMOGLOBIN 35 PG (25-34); MEAN CORPUSCULAR HGB CONC 36 G/DL (32-36); MEAN CORPUSCULAR VOLUME 98 FL (80-99); MEAN PLATELET VOLUME 10.5 FL (7.4-10.4); MONOCYTES # (AUTO) 0.7 X 10^3 (0.0-1.0); MONOCYTES % (AUTO) 7 % (0-12); NEUTROPHILS # (AUTO) 7.4 X 10^3 (1.8-7.8); NEUTROPHILS % (AUTO) 73 % (42-75); PLATELET COUNT 232 10^3/uL (130-400); RED CELL DISTRIBUTION WIDTH 12.7 % (10.0-14.5); WHITE BLOOD COUNT 10.2 10^3/uL (4.3-11.0)
[2018-01-08] MEDS ORDERED: ONDANSETRON 4 MG/2 ML (SDV) Z0FRAN IVP ONE (17:15)
[2018-01-08] MEDS ORDERED: LIDOCAINE 2% VISCOUS 15 ML UDC PO ONE (17:15)
[2018-01-08] MEDS ORDERED: ANTACID SUSP 30 ML UDC (MYLANTA) PO ONE (17:15)
[2018-01-08 17:30] LABS: ALANINE AMINOTRANSFERASE 28 U/L (0-55); ALBUMIN 4.2 GM/DL (3.2-4.5); ALKALINE PHOSPHATASE 78 U/L (40-136); AMYLASE 46 U/L (25-125); BILIRUBIN,TOTAL 0.4 MG/DL (0.1-1.0); BUN/CREATININE RATIO 16; CALCIUM 9.3 MG/DL (8.5-10.1); CARBON DIOXIDE 27 MMOL/L (21-32); CHLORIDE 103 MMOL/L (98-107); CREATININE SERUM 0.88 MG/DL (0.60-1.30); GFR ESTIMATED > 60; GLUCOSE 87 MG/DL (70-105); LIPASE 9 U/L (8-78); POTASSIUM 3.8 MMOL/L (3.6-5.0); SODIUM 140 MMOL/L (135-145); TOTAL PROTEIN 6.8 GM/DL (6.4-8.2)
[2018-01-08 17:34] LABS: BILIRUBIN,URINE NEGATIVE (NEGATIVE); CLARITY,URINE CLEAR; COLOR,URINE YELLOW; GLUCOSE, URINE (UA) NEGATIVE (NEGATIVE); KETONES,URINE NEGATIVE (NEGATIVE); LEUKOCYTE ESTERASE ,URINE 3+ (NEGATIVE); NITRITE,URINE NEGATIVE (NEGATIVE); PH,URINE 6.5 (5-9); PROTEIN,URINE NEGATIVE (NEGATIVE); UROBILINOGEN,URINE NORMAL (NORMAL)
[2018-01-08 17:42] LABS: BACTERIA,URINE TRACE /HPF; WBC,URINE 25-50 /HPF
[2018-01-08] MEDS ORDERED: SULF1TAB35 PO (18:14)
[2018-01-08] MEDS ORDERED: ONDA4TAB8 SL (18:14)
--- NOTE | 2018-01-08 18:14 | ED Abdominal Pain ---
General Chief Complaint: Abdominal/GI Problems Stated Complaint: NAUSEA,STOMACH BURNING Nursing Triage Note: PT AMB TO ROOM #7 W/O DIFFIUCLTY. A&OX4. C/O MEDIAL ABD AND EPIGASTRIC PAIN THAT RADIATES TO BACK. PT REPORTS SHE WAS SEEN IN THIS ED ON 01/06/18 WITH SAME SYMPTOMS THAT HAVE NOT IMPROVED WITH MEDICATION PRESCRIBED. PT STATES "IT FEELS LIKE MY BODY IS ON FIRE, EVERYWHERE." REPORTS NAUSEA WITH NO EMESIS. REPORTS SYMPTOMS BEGAN 01/01/18. DENIES FEVER OR CHILLS. Sepsis Screen: No Definite Risk Source of Information: Patient Exam Limitations: No Limitations History of Present Illness Date Seen by Provider: Jan 08, 2018 Time Seen by Provider: 16:40 Initial Comments Patient is a 57-year-old female who presents to the emergency room with complaints of epigastric abdominal pain that radiates to her back for the past week. She reports that she was seen in this emergency room on 01/06/18 with similar symptoms that have not improved with medication. She states that she is having a burning sensation everywhere she also reports nausea with no vomiting. She denies any fevers or chills. Timing/Duration: 1 Week Severity/Quality: Burning Location: Epigastric Radiation: No Radiation Allergies and Home Medications Allergies Coded Allergies: Penicillins (Verified Allergy, Unknown, 12/18/17) codeine (Verified Allergy, Unknown, Pt has had Hydrocodone w/o issue, 12/18) oxycodone (Verified Allergy, Unknown, Pt has had Hydrocodone w/o issue, ) Home Medications Escitalopram Oxalate 20 Mg Tablet, 20 MG PO DAILY, (Reported) Furosemide 20 Mg Tablet, 20 MG PO DAILY, (Reported) Lisinopril 20 Mg Tablet, 20 MG PO DAILY, (Reported) Metoprolol Succinate 50 Mg Tab.er.24h, 50 MG PO DAILY Prescribed by: CARLEY BENITES on 08/03/17 09 Ondansetron 4 Mg Tab.rapdis, 4 MG SL Q4H PRN for NAUSEA/VOMITING-1ST LINE Prescribed by: PEPPER MCNEAL on 01/08/18 181 Pantoprazole Sodium 40 Mg Tablet.dr, 40 MG PO DAILY, (Reported) Sucralfate 1 Gm Tablet, 1 GM PO ACHS Chew tablet to a slurry and then swallow Prescribed by: ALONDRA PANIAGUA on 01/06/18 0647 Sulfamethoxazole/Trimethoprim 1 Each Tablet, 1 EACH PO BID Prescribed by: PEPPER MCNEAL on 01/08/18 1814 Patient Home Medication List Home Medication List Reviewed: Yes Review of Systems Review of Systems Constitutional: see HPI; No chills, No dizziness Gastrointestinal: See HPI, Abdominal Pain, Nausea Psychiatric/Neurological: See HPI, Other (burning sensation everywhere.) All Other Systems Reviewed Negative Unless Noted: Yes Past Bhglzgf-Isxfuy-Cxsssu Hx Past Med/Social Hx: Reviewed Nursing Past Med/Soc Hx Patient Social History Alcohol Use: Denies Use Recreational Drug Use: No Smoking Status: Never a Smoker 2nd Hand Smoke Exposure: No Recent Foreign Travel: No Contact w/Someone Who Travel: No Recent Infectious Disease Expo: No Recent Hopitalizations: No Physical Abuse: No Sexual Abuse: No Mistreated: No Immunizations Up To Date Tetanus Booster (TDap): Less than 5yrs PED Vaccines UTD: No Date of Pneumonia Vaccine: Apr 27, 2012 Date of Influenza Vaccine: Feb 01, 2013 Seasonal Allergies Seasonal Allergies: Yes Past Medical History Surgeries: Yes (HIATAL HERNIA REPAIR,NECK, HEART CATH) Abdominal, Gallbladder, Hysterectomy Respiratory: Yes Pneumonia, Sleep Apnea, COPD Currently Using CPAP: Yes Cardiac: Yes High Cholesterol, Hypertension Neurological: No Reproductive Disorders: No [employer]IC History: Hysterectomy, Menopausal Sexually Transmitted Disease: No HIV/AIDS: No Genitourinary: No Gastrointestinal: Yes Abdominal Hernia, Gastroesophageal Reflux, Irritable Bowel Musculoskeletal: Yes Arthritis Endocrine: No HEENT: No Loss of Vision: Bilateral Hearing Impairment: Denies Cancer: No Psychosocial: Yes Sleep Difficulties, Anxiety, Depression Integumentary: No Blood Disorders: No Adverse Reaction/Blood Tranf: No (N/A) Family Medical History Reviewed Nursing Family Hx Cancer 03 MOTHER 09 SISTER Congestive heart failure 03 FATHER Family history: Breast disease 03 MOTHER Family history: Cardiovascular disease 03 FATHER 09 SISTER Family history: Coronary thrombosis Family history: Diabetes mellitus 09 BROTHER Family history: Hypertension 03 FATHER 03 MOTHER 09 SISTER 09 SISTER 09 SISTER Family history: Thyroid disorder 09 SISTER Headache 09 SISTER Heart disease 03 FATHER Myocardial infarction 03 FATHER 09 BROTHER Heart Disease, Cancer, CVA, Diabetes Physical Exam Vital Signs Vital Signs - First Documented 01/08/18 16:40 Temp 97.0 Pulse 65 Resp 18 B/P (MAP) 150/111 (124) Pulse Ox 99 O2 Delivery Room Air Capillary Refill : Less Than 3 Seconds Height/Weight/BMI Height: 5'0" Weight: 235lbs. 0oz. 106.476591ix; 45.8 BMI Method:Stated General Appearance: WD/WN, no apparent distress Neck: non-tender, full range of motion, supple, normal inspection Respiratory: chest non-tender, lungs clear, normal breath sounds, no respiratory distress, no accessory muscle use Cardiovascular: normal peripheral pulses, regular rate, rhythm, no edema, no gallop, no JVD, no murmur Gastrointestinal: normal bowel sounds, non tender, soft, no organomegaly, no pulsatile mass Extremities: normal range of motion, non-tender, normal capillary refill Neurologic/Psychiatric: alert, normal mood/affect, oriented x 3 Skin: normal color, warm/dry Procedures/Interventions Suture Size: 5-0 Progress/Results/Core Measures Results/Orders Lab Results Laboratory Tests Test 01/08/18 15:11 01/08/18 17:02 01/08/18 17:27 Range/Units Lab Scanned Report Referred Lab Report [id number] White Blood Count 10.2 4.3-11.0 10^3/uL Red Blood Count 3.80 L 4.35-5.85 10^6/uL Hemoglobin 13.3 11.5-16.0 G/DL Hematocrit 37 35-52 % Mean Corpuscular Volume 98 80-99 FL Mean Corpuscular Hemoglobin 35 H 25-34 PG Mean Corpuscular Hemoglobin Concent 36 32-36 G/DL Red Cell Distribution Width 12.7 10.0-14.5 % Platelet Count 232 130-400 10^3/uL Mean Platelet Volume 10.5 H 7.4-10.4 FL Neutrophils (%) (Auto) 73 42-75 % Lymphocytes (%) (Auto) 19 12-44 % Monocytes (%) (Auto) 7 0-12 % Eosinophils (%) (Auto) 2 0-10 % Basophils (%) (Auto) 0 0-10 % Neutrophils # (Auto) 7.4 1.8-7.8 X 10^3 Lymphocytes # (Auto) 2.0 1.0-4.0 X 10^3 Monocytes # (Auto) 0.7 0.0-1.0 X 10^3 Eosinophils # (Auto) 0.2 0.0-0.3 10^3/uL Basophils # (Auto) 0.0 0.0-0.1 10^3/uL Sodium Level 140 135-145 MMOL/L Potassium Level 3.8 3.6-5.0 MMOL/L Chloride Level 103 98-107 MMOL/L Carbon Dioxide Level 27 21-32 MMOL/L Anion Gap 10 5-14 MMOL/L Blood Urea Nitrogen 14 7-18 MG/DL Creatinine 0.88 0.60-1.30 MG/DL Estimat Glomerular Filtration Rate > 60 BUN/Creatinine Ratio 16 Glucose Level 87 70-105 MG/DL Calcium Level 9.3 8.5-10.1 MG/DL Corrected Calcium 9.1 8.5-10.1 MG/DL Total Bilirubin 0.4 0.1-1.0 MG/DL Aspartate Amino Transf (AST/SGOT) 18 5-34 U/L Alanine Aminotransferase (ALT/SGPT) 28 0-55 U/L Alkaline Phosphatase 78 40-136 U/L Troponin I < 0.30 <0.30 NG/ML Total Protein 6.8 6.4-8.2 GM/DL Albumin 4.2 3.2-4.5 GM/DL Amylase Level 46 25-125 U/L Lipase 9 8-78 U/L Urine Color YELLOW Urine Clarity CLEAR Urine pH 6.5 5-9 Urine Specific [place] 1.010 L 1.016-1.022 Urine Protein NEGATIVE NEGATIVE Urine Glucose (UA) NEGATIVE NEGATIVE Urine Ketones NEGATIVE NEGATIVE Urine Nitrite NEGATIVE NEGATIVE Urine Bilirubin NEGATIVE NEGATIVE Urine Urobilinogen NORMAL NORMAL MG/DL Urine Leukocyte Esterase 3+ H NEGATIVE Urine RBC (Auto) NEGATIVE NEGATIVE Urine RBC NONE /HPF Urine WBC 25-50 H /HPF Urine Squamous Epithelial Cells 2-5 /HPF Urine Crystals NONE /LPF Urine Bacteria TRACE /HPF Urine Casts NONE /LPF Urine Mucus NEGATIVE /LPF Urine Culture Indicated YES Micro Results Microbiology 01/08/18 Urine Culture - Final, Complete See Comments My Orders Orders - PEPPER MCNEAL Comprehensive Metabolic Panel (01/08/18 16:47) Lipase (01/08/18 16:47) Amylase (01/08/18 16:47) Ua Culture If Indicated (01/08/18 16:47) Saline Lock/Iv-Start (01/08/18 16:47) Cbc With Automated Diff (01/08/18 16:47) Ekg Tracing (01/08/18 16:47) Troponin I (01/08/18 16:47) Ondansetron Injection (Zofran Injectio (01/08/18 17:15) Antacid Suspension (Mylanta Suspension (01/08/18 17:15) Lidocaine 2% Viscous 15 Ml (Xylocaine Vi (01/08/18 17:15) Urine Culture (01/08/18 17:27) Metoprolol Tartrate Injection (Lopressor (01/08/18 18:30) Medications Given in ED Vital Signs/I&O 01/08/18 01/08/18 16:40 20:20 Temp 97.0 97.0 Pulse 65 65 Resp 18 18 B/P (MAP) 150/111 (124) 167/90 (115) Pulse Ox 99 99 O2 Delivery Room Air Blood Pressure Mean: 124 Progress Progress Note : Time: 18:00 Progress Note I have seen and evaluated the patient. Her symptoms have improved and her abdominal pain is gone. She does have some hypertension, medications were ordered, will continue to monitor. 2020: Blood pressure has improved. She agrees with plans for discharge. Return precautions were given. EKG : EKG Time: 17:15 Rate: 61 Rhythm: Normal Sinus Intervals: Normal ECG Comparisson: Unchanged ECG Impression: Normal Comment left ventricular hypertrophy Departure Impression Primary Impression: Urinary tract infection Additional Impression: GERD (gastroesophageal reflux disease) Disposition: 01 HOME, SELF-CARE Condition: Stable/Unchanged Departure-Patient Inst. Decision time for Depature: 18:11 Referrals: YAZ MOJICA DO (PCP/Family) Primary Care Physician Patient Instructions: Acid Reflux (Gastroesophageal Reflux Disease) in Adults, Urinary Tract Infection, Adult (DC) Add. Discharge Instructions: Take new prescriptions as directed. Continue prescriptions as previously prescribed. Follow-up with your primary care provider within 1 week for recheck. Return back to the emergency room for any worsening symptoms or concerns as needed. All discharge instructions reviewed with patient and/or family. Voiced understanding. Scripts Ondansetron (Zofran Odt) 4 Mg Tab.rapdis 4 MG SL Q4H PRN for NAUSEA/VOMITING-1ST LINE, #14 TAB Prov: PEPPER MCNEAL 01/08/18 Sulfamethoxazole/Trimethoprim (Bactrim Ds Tablet) 1 Each Tablet 1 EACH PO BID for 7 Days, #14 TAB Prov: PEPPER MCNEAL 01/08/18 PEPPER MCNEAL Jan 08, 2018 18:14
[2018-01-08] MEDS ORDERED: meTOprolol 5 MG/5 ML (LOPRESSOR) VIAL IV ONE (18:30)
[2018-01-08 20:20] VITALS: BP 167/90
== END 2018-01-08 20:21 | disposition home or self-care (01) ==
LOC: EDUNIT# 15:08 → ER 15:11
DX: N39.0 Urinary tract infection, site not specified (principal); K21.9 Gastro-esophageal reflux disease without esophagitis; G47.30 Sleep apnea, unspecified; J44.9 Chronic obstructive pulmonary disease, unspecified; E78.00 Pure hypercholesterolemia, unspecified; I10 Essential (primary) hypertension; F41.9 Anxiety disorder, unspecified; F32.9 Major depressive disorder, single episode, unspecified; Z82.49 Family history of ischemic heart disease and other diseases of the circulatory system; Z87.19 Personal history of other diseases of the digestive system; Z88.0 Allergy status to penicillin; Z88.5 Allergy status to narcotic agent; Z98.890 Other specified postprocedural states; Z90.710 Acquired absence of both cervix and uterus; Z87.01 Personal history of pneumonia (recurrent)
CPT/HCPCS: 36415; 80053; 81000; 82150; 83690; 84484; 85025; 87088; 93005

== ENCOUNTER 2018-05-11 13:52 | Inpatient (IN) | payer MEDICARE ==
[~2018-05-11] VITALS: Ht 152.4 cm; Wt 101.8 kg
[~2018-05-11 13:52] MED LIST changes: -AMLO10TA6 PO; +AMLO10TA7 PO; +ONDA4TAB8 SL; +SULF1TAB35 PO
[2018-05-11] MEDS ORDERED: LORazepam INJ 2 MG/ML (ATIVAN) VIAL IVP ONE ×2 (15:15→17:30)
[2018-05-11 16:05] LABS: BASOPHILS % (AUTO) 0 % (0-10); EOSINOPHILS % (AUTO) 1 % (0-10); HEMATOCRIT 40 % (35-52); HEMOGLOBIN 13.3 G/DL (11.5-16.0); LYMPHOCYTES # (AUTO) 1.5 X 10^3 (1.0-4.0); LYMPHOCYTES % (AUTO) 18 % (12-44); MEAN CORPUSCULAR HEMOGLOBIN 33 PG (25-34); MEAN CORPUSCULAR HGB CONC 33 G/DL (32-36); MEAN CORPUSCULAR VOLUME 99 FL (80-99); MEAN PLATELET VOLUME 10.7 FL (7.4-10.4); MONOCYTES # (AUTO) 0.6 X 10^3 (0.0-1.0); MONOCYTES % (AUTO) 7 % (0-12); NEUTROPHILS % (AUTO) 74 % (42-75); PLATELET COUNT 226 10^3/uL (130-400); RED CELL DISTRIBUTION WIDTH 12.5 % (10.0-14.5); WHITE BLOOD COUNT 8.1 10^3/uL (4.3-11.0)
[2018-05-11 16:26] LABS: ALANINE AMINOTRANSFERASE 24 U/L (0-55); ALBUMIN 4.1 GM/DL (3.2-4.5); ALKALINE PHOSPHATASE 78 U/L (40-136); BILIRUBIN,TOTAL 0.6 MG/DL (0.1-1.0); BUN/CREATININE RATIO 17; CALCIUM 9.2 MG/DL (8.5-10.1); CARBON DIOXIDE 22 MMOL/L (21-32); CHLORIDE 107 MMOL/L (98-107); CREATININE SERUM 0.78 MG/DL (0.60-1.30); GFR ESTIMATED > 60; GLUCOSE 105 MG/DL (70-105); POTASSIUM 3.8 MMOL/L (3.6-5.0); SODIUM 142 MMOL/L (135-145); TOTAL PROTEIN 6.7 GM/DL (6.4-8.2)
--- NOTE | 2018-05-11 16:29 | Diagnostic Imaging Report ---
PROCEDURE: CT head without contrast. TECHNIQUE: Multiple contiguous axial images were obtained through the brain without the use of intravenous contrast. INDICATION: Altered mental status. FINDINGS: There is no hemorrhage, hydrocephalus, edema, mass, mass effect or evidence for elevated intracranial pressures. The basal cisterns are patent, the sulci non-effaced. The orbits, sinuses and calvarium were unremarkable. IMPRESSION: Normal CT head Dictated by: Dictated on workstation # [id number]
--- NOTE | 2018-05-11 17:12 | ED Neurological Problem ---
General Chief Complaint: Altered Mental Status Stated Complaint: CONFUSION Nursing Triage Note: TO TRIAGE ROOM VIA AMB. CONFUSION FOR 2 DAYS THAT HAS BECAME WORSE. PT HAS A HX OF ANXIETY ET HAS NOT TAKEN HER MEDICATION. CRYING ET SHAKING IN TRIAGE. Nursing Sepsis Screen: No Definite Risk Source: patient, family Exam Limitations: no limitations History of Present Illness Date Seen by Provider: May 11, 2018 Time Seen by Provider: 17:09 Initial Comments This 58-year-old white female presents with acute confusion. This has been progressive for the last 10 days to 2 weeks. The patient has had associated marked anxiety. The patient has demonstrated no acute lateralizing or localizing neurologic findings, she has not had an associated headache injury, there is been no fever or chill, the patient and her deny associated headache or stiff neck. The patient is crying and although she is minimally verbally appropriate unable offer a truly helpful history. Allergies and Home Medications Allergies Coded Allergies: Penicillins (Verified Allergy, Unknown, 12/18/17) codeine (Verified Allergy, Unknown, Pt has had Hydrocodone w/o issue, 12/18) oxycodone (Verified Allergy, Unknown, Pt has had Hydrocodone w/o issue, ) Home Medications Escitalopram Oxalate 20 Mg Tablet, 20 MG PO DAILY, (Reported) Furosemide 20 Mg Tablet, 20 MG PO DAILY, (Reported) Lisinopril 20 Mg Tablet, 20 MG PO DAILY, (Reported) Metoprolol Succinate 50 Mg Tab.er.24h, 50 MG PO DAILY Prescribed by: CARLEY BENITES on 08/03/17 09 Ondansetron 4 Mg Tab.rapdis, 4 MG SL Q4H PRN for NAUSEA/VOMITING-1ST LINE Prescribed by: PEPPER MCNEAL on 01/08/181813 Pantoprazole Sodium 40 Mg Tablet.dr, 40 MG PO DAILY, (Reported) Sucralfate 1 Gm Tablet, 1 GM PO ACHS Chew tablet to a slurry and then swallow Prescribed by: ALONDRA PANIAGUA on 01/06/18 0647 Sulfamethoxazole/Trimethoprim 1 Each Tablet, 1 EACH PO BID Prescribed by: PEPPER MCNEAL on 01/08/181813 Patient Home Medication List Home Medication List Reviewed: Yes Review of Systems Review of Systems Constitutional: No chills, No fever Eyes: Denies Blurred Vision Ears, Nose, Mouth, Throat: denies ear pain Respiratory: No cough Cardiovascular: No chest pain Gastrointestinal: No abdominal pain, No diarrhea, No vomiting Genitourinary: No dysuria, No frequency : No Musculoskeletal: no symptoms reported Skin: No rash Psychiatric/Neurological: Anxiety, Cognitive Dysfunction Endocrine: No Symptoms Reported Hematologic/Lymphatic: No Symptoms Reported Past Xiectnp-Vlgjas-Jipzxe Hx Past Med/Social Hx: Reviewed Nursing Past Med/Soc Hx Patient Social History Alcohol Use: Denies Use Recreational Drug Use: No Smoking Status: Never a Smoker 2nd Hand Smoke Exposure: No Recent Foreign Travel: No Contact w/Someone Who Travel: No Recent Infectious Disease Expo: No Recent Hopitalizations: No Immunizations Up To Date Tetanus Booster (TDap): Less than 5yrs PED Vaccines UTD: No Date of Pneumonia Vaccine: Apr 27, 2012 Date of Influenza Vaccine: Feb 01, 2013 Seasonal Allergies Seasonal Allergies: Yes Past Medical History Surgeries: Yes (HIATAL HERNIA REPAIR,NECK, HEART CATH) Abdominal, Gallbladder, Hysterectomy Respiratory: Yes Pneumonia, Sleep Apnea, COPD Currently Using CPAP: Yes Cardiac: Yes High Cholesterol, Hypertension Neurological: No Reproductive Disorders: No INTERNAL MEDICINE DOCTOR History: Hysterectomy, Menopausal Sexually Transmitted Disease: No HIV/AIDS: No Genitourinary: No Gastrointestinal: Yes Abdominal Hernia, Gastroesophageal Reflux, Irritable Bowel Musculoskeletal: Yes Arthritis Endocrine: No HEENT: No Loss of Vision: Bilateral Hearing Impairment: Denies Cancer: No Psychosocial: Yes Sleep Difficulties, Anxiety, Depression Integumentary: No Blood Disorders: No Adverse Reaction/Blood Tranf: No (N/A) Family Medical History Cancer 03 MOTHER 09 SISTER Congestive heart failure 03 FATHER Family history: Breast disease 03 MOTHER Family history: Cardiovascular disease 03 FATHER 09 SISTER Family history: Coronary thrombosis Family history: Diabetes mellitus 09 BROTHER Family history: Hypertension 03 FATHER 03 MOTHER 09 SISTER 09 SISTER 09 SISTER Family history: Thyroid disorder 09 SISTER Headache 09 SISTER Heart disease 03 FATHER Myocardial infarction 03 FATHER 09 BROTHER Heart Disease, Cancer, CVA, Diabetes Physical Exam Vital Signs Vital Signs - First Documented 05/11/18 14:01 Temp 96.3 Pulse 121 Resp 16 B/P (MAP) 135/87 (103) Pulse Ox 97 O2 Delivery Room Air Capillary Refill : Less Than 3 Seconds Height, Weight, BMI Height: 5'0" Weight: 215lbs. 0oz. 97.040706ht; 45.8 BMI Method:Stated General Appearance: WD/WN, moderate distress HEENT: normal ENT inspection Neck: supple Respiratory: lungs clear Cardiovascular: regular rate, rhythm Gastrointestinal: normal bowel sounds, non tender, soft Back: normal inspection Extremities: normal inspection Neurologic/Psychiatric: no motor/sensory deficits, other (patient is tearful and anxious. She is verbally appropriate but unable offer helpful history.) Motor/Sensory: no motor deficit, no sensory deficit Skin: warm/dry Procedures/Interventions Suture Size: 5-0 Progress/Results/Core Measures Results/Orders Lab Results Laboratory Tests Test 05/11/18 15:55 Range/Units White Blood Count 8.1 4.3-11.0 10^3/uL Red Blood Count 4.04 L 4.35-5.85 10^6/uL Hemoglobin 13.3 11.5-16.0 G/DL Hematocrit 40 35-52 % Mean Corpuscular Volume 99 80-99 FL Mean Corpuscular Hemoglobin 33 25-34 PG Mean Corpuscular Hemoglobin Concent 33 32-36 G/DL Red Cell Distribution Width 12.5 10.0-14.5 % Platelet Count 226 130-400 10^3/uL Mean Platelet Volume 10.7 H 7.4-10.4 FL Neutrophils (%) (Auto) 74 42-75 % Lymphocytes (%) (Auto) 18 12-44 % Monocytes (%) (Auto) 7 0-12 % Eosinophils (%) (Auto) 1 0-10 % Basophils (%) (Auto) 0 0-10 % Neutrophils # (Auto) 6.0 1.8-7.8 X 10^3 Lymphocytes # (Auto) 1.5 1.0-4.0 X 10^3 Monocytes # (Auto) 0.6 0.0-1.0 X 10^3 Eosinophils # (Auto) 0.0 0.0-0.3 10^3/uL Basophils # (Auto) 0.0 0.0-0.1 10^3/uL Sodium Level 142 135-145 MMOL/L Potassium Level 3.8 3.6-5.0 MMOL/L Chloride Level 107 98-107 MMOL/L Carbon Dioxide Level 22 21-32 MMOL/L Anion Gap 13 5-14 MMOL/L Blood Urea Nitrogen 13 7-18 MG/DL Creatinine 0.78 0.60-1.30 MG/DL Estimat Glomerular Filtration Rate > 60 BUN/Creatinine Ratio 17 Glucose Level 105 70-105 MG/DL Calcium Level 9.2 8.5-10.1 MG/DL Corrected Calcium 9.1 8.5-10.1 MG/DL Total Bilirubin 0.6 0.1-1.0 MG/DL Aspartate Amino Transf (AST/SGOT) 26 5-34 U/L Alanine Aminotransferase (ALT/SGPT) 24 0-55 U/L Alkaline Phosphatase 78 40-136 U/L Total Protein 6.7 6.4-8.2 GM/DL Albumin 4.1 3.2-4.5 GM/DL My Orders Orders - JULITA SALES MD Cbc With Automated Diff (05/11/18 14:54) Comprehensive Metabolic Panel (05/11/18 14:54) Hemoglobin A1c (05/11/18 14:54) Ua Culture If Indicated (05/11/18 14:54) Ct Head Wo (05/11/18 14:54) Ekg Tracing (05/11/18 14:54) Chest 1 View, Ap/Pa Only (05/11/18 14:54) Lorazepam Injection (Ativan Injection) (05/11/18 15:15) Lorazepam Injection (Ativan Injection) (05/11/18 17:30) Medications Given in ED Current Medications Medications Dose Ordered Sig/Ruba Route Start Time Stop Time Status Last Admin Dose Admin Lorazepam 1 mg ONCE ONCE IVP 05/11/18 15:15 05/11/18 15:16 DC 05/11/18 16:00 1 MG Vital Signs/I&O 05/11/18 14:01 Temp 96.3 Pulse 121 Resp 16 B/P (MAP) 135/87 (103) Pulse Ox 97 O2 Delivery Room Air Blood Pressure Mean: 103 Progress Progress Note : Time: 17:24 Progress Note The patient's anxiety was significantly improved with a milligram of Ativan IV. CT of the head was unremarkable. Patient's laboratory evaluation was similarly benign. I discussed findings with the family. Although there certainly is a great deal of anxiety in the patient's presentation I believe that this may represent an acute psychosis. Dr. Rouse was kind enough to admit the patient. I have written orders and we will transfer the patient to the floor. Departure Communication (Admissions) Time/Spoke to Admitting Phy: 17:26 Dr. Rouse Impression Primary Impression: Acute anxiety Additional Impression: Psychosis Qualified Codes: F29 - Unspecified psychosis not due to a substance or known physiological condition Disposition: ADMITTED INPATIENT Condition: Improved Admissions Decision to Admit Reason: Admit from ER (General) Decision to Admit/Date: May 11, 2018 Time/Decision to Admit Time: 17:27 Departure-Patient Inst. Referrals: YAZ MOJICA DO (PCP/Family) Primary Care Physician JULITA SALES MD May 11, 2018 17:12
--- OUTSIDE RECORDS SUMMARY | 2018-05-11 17:39 | XMS REPORT | Continuity of Care Document ---
Author Author [facility] Organization [facility] Address Unknown Phone Unavailable Allergies Active Description Code Type Severity Reaction Onset Reported/Identified Relationship to Patient Clinical Status Yes CODEINE SULFATE MILD OTHER Yes OXYCODONE MILD ITCHING Yes codeine [id number] Drug Allergy Unknown N/A 03/20/2017 Yes oxycodone [id number] Drug Allergy Unknown N/A 03/20/2017 Yes codeine [id number] Drug Allergy Unknown Pt has had Hydr 12/18/2017 Yes oxycodone [id number] Drug Allergy Unknown Pt has had Hydr 12/18/2017 Yes Penicillins [id number] Drug Allergy Unknown N/A 12/18/2017 Medications There [...] POST MD Ot 414.01 CORONARY ATHEROSCLEROSIS OF [place] CORON 04/30/2013 ALEX POST MD Ot 427.89 [...] SPINAL STENOSIS, CERVICAL REGION 03/03/2017 JUAN LY ASSET PROTECTION SPECIALIST Ot G47.33 OBSTRUCTIVE SLEEP APNEA (ADULT) (PEDIATR [...] MD Ot I25.10 ATHSCL HEART DISEASE OF [place] CORONARY 08/03/2017 LAY OSWALD MD Ot J30.2 OTHER SEASONAL ALLERGIC RHINITIS 08/03/2017 LAY OSWALD MD Ot J44.9 CHRONIC OBSTRUCTIVE PULMONARY DISEASE, U 08/03/2017 LAY OSWALD MD, Ot K21.9 GASTRO-ESOPHAGEAL REFLUX DISEASE WITHOUT 08/03/2017 LAY OSWALD MD Ot K58.9 IRRITABLE BOWEL SYNDROME WITHOUT DIARRHE 08/03/2017 LAY OSWALD MD Ot K72.00 ACUTE AND SUBACUTE HEPATIC FAILURE WITHO 08/03/2017 LYA OSWALD MD Ot K76.0 FATTY (CHANGE OF) [...] MD Ot I25.10 ATHSCL HEART DISEASE OF [place] CORONARY 08/09/2017 LAY OSWALD MD Ot J30.2 [...] MD Ot I25.10 ATHSCL HEART DISEASE OF [place] CORONARY 08/09/2017 LAY OSWALD MD Ot J30.2 [...] (CHANGE OF) LIVER, NOT ELSEWHERE C 08/09/2017 LYA OSWALD MD Ot K85.90 ACUTE PANCREATITIS WITHOUT [...] MD Ot I25.10 ATHSCL HEART DISEASE OF [place] CORONARY 08/09/2017 LAY OSWALD MD Ot J30.2 [...] 08/14/2017 Nick Jolley B25.2 CYTOMEGALOVIRAL PANCREATITIS 08/16/2017 ALONDAR PANIAGUA MD Ot F32.9 MAJOR DEPRESSIVE DISORDER, [...] 12/20/2017 MICHAEL HOLLIDAY MD, Ot Z79.899 OTHER TELEMETRY REGISTERED NURSE (CURRENT) DRUG THERAPY 12/22/2017 MICHAEL HOLLIDAY MD [...] 12/22/2017 MICHAEL HOLLIDAY MD Ot Z79.899 OTHER PRISON (CURRENT) DRUG THERAPY 12/26/2017 MICHAEL HOLLIDAY MD, [...] 12/26/2017 MICHAEL HOLLIDAY MD Ot Z79.899 OTHER PRISON (CURRENT) DRUG THERAPY 12/26/2017 MICHAEL HOLLIDAY MD [...] 12/26/2017 MICHAEL HOLLIDAY MD Ot Z79.899 OTHER PRISON (CURRENT) DRUG THERAPY 01/06/2018 RAS DE SANTIAGO [...] R Ot W19.XXXA UNSPECIFIED FALL, INITIAL ENCOUNTER 01/06/2018 ALONDRA PANIAGUA MD Ot F32.9 MAJOR DEPRESSIVE DISORDER, SINGLE EPISOD 01/06/2018 ALONDRA PANIAGUA MD, Ot F41.9 ANXIETY DISORDER, UNSPECIFIED 01/06/2018 ALONDRA PANIAGUA MD, Ot G47.30 SLEEP APNEA, UNSPECIFIED 01/06/2018 ALONDRA PANIAGUA MD Ot I10 ESSENTIAL (PRIMARY) HYPERTENSION 01/06/2018 ALONDRA PANIAGUA MD, Ot J44.9 CHRONIC OBSTRUCTIVE PULMONARY DISEASE, U 01/06/2018 ALONDRA PANIAGUA MD, Ot K21.9 GASTRO-ESOPHAGEAL REFLUX DISEASE WITHOUT 01/06/2018 ALONDRA PNAIAGUA MD Ot R06.02 SHORTNESS OF BREATH 01/06/2018 ARCELIA MD, ALONDRA D Ot R10.13 EPIGASTRIC PAIN 01/06/2018 ALONDRA PANIAGUA MD Ot Z82.49 FAMILY HX OF ISCHEM HEART DIS AND OTH DI 01/06/2018 ALONDRA PANIAGUA MD Ot Z87.01 PERSONAL HISTORY OF PNEUMONIA (RECURRENT 01/06/2018 ALONDRA PANIAGUA MD Ot Z87.19 PERSONAL HISTORY OF OTHER DISEASES OF TH 01/06/2018 ALONDRA PANIAGUA MD Ot Z88.0 ALLERGY STATUS TO PENICILLIN 01/06/2018 ALONDRA PANIAGUA MD Ot Z88.5 ALLERGY STATUS TO NARCOTIC AGENT STATUS 01/06/2018 ALONDRA PANIAGUA MD Ot Z90.710 ACQUIRED ABSENCE OF BOTH CERVIX AND UTER 01/06/2018 ALONDRA PANIAGUA MD Ot Z98.890 OTHER SPECIFIED POSTPROCEDURAL STATES 01/08/2018 ALONDRA PANIAGUA MD Ot F32.9 MAJOR DEPRESSIVE DISORDER, SINGLE EPISOD 01/08/2018 ALONDRA PANIAGUA MD Ot F41.9 ANXIETY DISORDER, UNSPECIFIED 01/08/2018 ALONDRA PANIAGUA MD Ot G47.30 SLEEP APNEA, UNSPECIFIED 01/08/2018 ALONDRA PANIAGUA MD Ot I10 ESSENTIAL (PRIMARY) HYPERTENSION 01/08/2018 ALONDRA PANIAGUA MD Ot J44.9 CHRONIC OBSTRUCTIVE PULMONARY DISEASE, U 01/08/2018 ALONDRA PANIAGUA MD Ot K21.9 GASTRO-ESOPHAGEAL REFLUX DISEASE WITHOUT 01/08/2018 ALONDRA PANIAGUA MD Ot R06.02 SHORTNESS OF BREATH 01/08/2018 ALONDRA PANIAGUA MD Ot R10.13 EPIGASTRIC PAIN 01/08/2018 ALONDRA PANIAGUA MD Ot Z82.49 FAMILY HX OF I[place]HE[place] HEART DIS AND OTH DI 01/08/2018 ALONDRA PANIAGUA MD Ot Z87.01 PERSONAL HISTORY OF PNEUMONIA (RECURRENT 01/08/2018 ALONDRA PANIAGUA MD Ot Z87.19 PERSONAL HISTORY OF OTHER DISEASES OF TH 01/08/2018 ALONDRA PANIAGUA MD Ot Z88.0 ALLERGY STATUS TO PENICILLIN 01/08/2018 ALONDRA PANIAGUA MD Ot Z88.5 ALLERGY STATUS TO NARCOTIC AGENT STATUS 01/08/2018 ROBERT PANIAGUA MDOTHY D Ot Z90.710 ACQUIRED ABSENCE OF BOTH CERVIX AND UTER 01/08/2018 ALONDRA PANIAGUA MD Ot Z98.890 OTHER SPECIFIED POSTPROCEDURAL STATES 01/08/2018 RAS DE SANTIAGO DO Ot M47.812 SPONDYLOSIS W/O MYELOPATHY OR RADICULOPA 01/08/2018 RAS DE SANTIAGO DO Ot M48.02 SPINAL STENOSIS, CERVICAL REGION 01/08/2018 RAS DE SANTIAGO DO Ot M48.02 SPINAL STENOSIS, CERVICAL REGION 01/08/2018 RAS DE SANTIAGO DO Ot Z98.890 OTHER SPECIFIED POSTPROCEDURAL STATES 01/08/2018 SINCERE PETER, ALEX Das Ot I10 ESSENTIAL (PRIMARY) HYPERTENSION 01/08/2018 SINCERE PTEER, ALEX Das Ot R07.89 OTHER CHEST PAIN 01/08/2018 SWEET PA, ANAND R Ot M43.16 SPONDYLOLISTHESIS, LUMBAR REGION 01/08/2018 SWEET PA, ANAND R Ot M46.87 OTH INFLAMMATORY SPONDYLOPATHIES, LUMBOS 01/08/2018 SWEET PA, ANAND R Ot M48.04 SPINAL STENOSIS, THORACIC REGION 01/08/2018 SWEET PA, ANAND R Ot M48.061 SPINAL STENOSIS, LUMBAR REGION WITHOUT N 01/08/2018 SWEET PA, ANAND R Ot M51.25 OTHER INTERVERTEBRAL DISC DISPLACEMENT, 01/08/2018 SWEET PA, ANAND R Ot M51.27 OTHER INTERVERTEBRAL DISC DISPLACEMENT, 01/08/2018 SWEET PA, ANAND R Ot M51.37 OTHER INTERVERTEBRAL DISC DEGENERATION, 01/08/2018 SWEET PA, ANAND R Ot 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 01/08/2018 SWEET PA, ANAND R Ot W19.XXXA UNSPECIFIED FALL, INITIAL ENCOUNTER 01/08/2018 Tai Ibrahim 530.81 ESOPHAGEAL REFLUX 01/08/2018 Tai Ibrahim K21.9 GASTRO-ESOPHAGEAL REFLUX DISEASE WITHOUT ESOPHAGITIS 01/08/2018 PEPPER MCNEAL Ot E78.00 PURE HYPERCHOLESTEROLEMIA, UNSPECIFIED 01/08/2018 PEPPER MCNEAL Ot F32.9 MAJOR DEPRESSIVE DISORDER, SINGLE EPISOD 01/08/2018 PEPPER MCNEAL Ot F41.9 ANXIETY DISORDER, UNSPECIFIED 01/08/2018 BERNOT, PEPPER Ot G47.30 SLEEP APNEA, UNSPECIFIED 01/08/2018 BERNOT, PEPPER Ot I10 ESSENTIAL (PRIMARY) HYPERTENSION 01/08/2018 CARMELLA MCNEALIS Ot J44.9 CHRONIC OBSTRUCTIVE PULMONARY DISEASE, U 01/08/2018 FREDIS PEPPER Ot K21.9 GASTRO-ESOPHAGEAL REFLUX DISEASE WITHOUT 01/08/2018 BERNOT, PEPPER Ot N39.0 URINARY TRACT INFECTION, SITE NOT SPECIF 01/08/2018 BERNOT PEPPER Ot R10.13 EPIGASTRIC PAIN 01/08/2018 FREDIS PEPPER Ot Z82.49 FAMILY HX OF [place] HEART DIS AND OTH DI 01/08/2018 FREDIS PEPPER Ot Z87.01 PERSONAL HISTORY OF PNEUMONIA (RECURRENT 01/08/2018 CARMELLA MCNEALIS Ot Z87.19 PERSONAL HISTORY OF OTHER DISEASES OF TH 01/08/2018 CARMELLA MCNEALIS Ot Z88.0 ALLERGY STATUS TO PENICILLIN 01/08/2018 CARMELLA MCNEALIS Ot Z88.5 ALLERGY STATUS TO NARCOTIC AGENT STATUS 01/08/2018 FREDIS PEPPER Ot Z90.710 ACQUIRED ABSENCE OF BOTH CERVIX AND UTER 01/08/2018 FREDIS PEPPER Ot Z98.890 OTHER SPECIFIED POSTPROCEDURAL STATES 01/10/2018 FREDIS PEPPER Ot E78.00 PURE HYPERCHOLESTEROLEMIA, UNSPECIFIED 01/10/2018 FREDIS PEPPER Ot F32.9 MAJOR DEPRESSIVE DISORDER, SINGLE EPISOD 01/10/2018 CARMELLA MCNEALIS Ot F41.9 ANXIETY DISORDER, UNSPECIFIED 01/10/2018 CARMELLA MCNEALIS Ot G47.30 SLEEP APNEA, UNSPECIFIED 01/10/2018 FREDIS PEPPER Ot I10 ESSENTIAL (PRIMARY) HYPERTENSION 01/10/2018 CARMELLA MCNEALIS Ot J44.9 CHRONIC OBSTRUCTIVE PULMONARY DISEASE, U 01/10/2018 FREDIS PEPPER Ot K21.9 GASTRO-ESOPHAGEAL REFLUX DISEASE WITHOUT 01/10/2018 BERNOT, PEPPER Ot N39.0 URINARY TRACT INFECTION, SITE NOT SPECIF 01/10/2018 BERNOT, PEPPER Ot R10.13 EPIGASTRIC PAIN 01/10/2018 BERNALVARO PEPPER Ot Z82.49 FAMILY HX OF [place] HEART DIS AND OTH DI 01/10/2018 FREDIS PEPPER Ot Z87.01 PERSONAL HISTORY OF PNEUMONIA (RECURRENT 01/10/2018 PEPPER MCNEAL Ot Z87.19 PERSONAL HISTORY OF OTHER DISEASES OF TH 01/10/2018 PEPPER MCNEAL Ot Z88.0 ALLERGY STATUS TO PENICILLIN 01/10/2018 PEPPER MCNEAL Ot Z88.5 ALLERGY STATUS TO NARCOTIC AGENT STATUS 01/10/2018 PEPPER MCNEAL Ot Z90.710 ACQUIRED ABSENCE OF BOTH CERVIX AND UTER 01/10/2018 PEPPER MCNEAL Ot Z98.890 OTHER SPECIFIED POSTPROCEDURAL STATES 03/12/2018 Nick Jolley 536.8 DYSPEPSIA AND OTHER SPECIFIED DISORDERS OF FUNCTION OF STOMACH 03/12/2018 Nick Jolley K30 FUNCTIONAL DYSPEPSIA 03/12/2018 Nick Jolley 536.8 DYSPEPSIA AND OTHER SPECIFIED DISORDERS OF FUNCTION OF STOMACH 03/12/2018 Nick Jolley K30 FUNCTIONAL DYSPEPSIA 03/12/2018 Nick Jolley 536.8 DYSPEPSIA AND OTHER SPECIFIED DISORDERS OF FUNCTION OF STOMACH 03/12/2018 Nick Jolley K30 FUNCTIONAL DYSPEPSIA Procedures Code Description Performed By Performed On [id number] FUSION 2-6 C JT W INTBD FUS [...] ABO+Rh group AP NRG Transfusion band number [id number] NRG Blood group antibody screen NEGATIVE NRG [...] blood smear finding identification by light microscopy [facility] Comprehensive metabolic panel - 01/06/18 05:25 [...] or plasma urea nitrogen/creatinine mass ratio 24 [facility] Serum or plasma creatinine measurement with calculation of estimated glomerular filtration rate > [facility] Serum or plasma glucose measurement (mass/volume) [...] protein measurement (mass/volume) 0.54 mg /dL 0.00-0.50 Complete blood count (CBC) with automated white blood cell (WBC) differential - 01/08/18 17:02 Blood leukocytes automated count (number/volume) 10.2 10*3/uL 4.3-11.0 Blood erythrocytes automated count (number/volume) 3.80 10*6/uL 4.35-5.85 Venous blood hemoglobin measurement (mass/volume) 13.3 g/dL 11.5-16.0 Blood hematocrit (volume fraction) 37 % 35-52 Automated erythrocyte mean corpuscular volume 98 [foz_us] 80-99 Automated erythrocyte mean corpuscular hemoglobin (mass per erythrocyte) 35 pg 25-34 Automated erythrocyte mean corpuscular hemoglobin concentration measurement ( mass/volume) 36 g/dL 32-36 Automated erythrocyte distribution width ratio 12.7 % 10.0-14.5 Automated blood platelet count (count/volume) 232 10*3/uL 130-400 Automated blood platelet mean volume measurement 10.5 [foz_us] 7.4-10.4 Automated blood neutrophils/100 leukocytes 73 % 42-75 Automated blood lymphocytes/100 leukocytes 19 % 12-44 Blood monocytes/100 leukocytes 7 % 0-12 Automated blood eosinophils/100 leukocytes 2 % 0-10 Automated blood basophils/100 leukocytes 0 % 0-10 Blood neutrophils automated count (number/volume) 7.4 10*3 1.8-7.8 Blood lymphocytes automated count (number/volume) 2.0 10*3 1.0-4.0 Blood monocytes automated count (number/volume) 0.7 10*3 0.0-1.0 Automated eosinophil count 0.2 10*3/uL 0.0-0.3 Automated blood basophil count (count/volume) 0.0 10*3/uL 0.0-0.1 Comprehensive metabolic panel - 01/08/18 17:02 Serum or plasma sodium measurement (moles/volume) 140 mmol/L 135-145 Serum or plasma potassium measurement (moles/volume) 3.8 mmol/L 3.6-5.0 Serum or plasma chloride measurement (moles/volume) 103 mmol/L 98-107 Carbon dioxide 27 mmol/L 21-32 Serum or plasma anion gap determination (moles/volume) 10 mmol/L 5-14 Serum or plasma urea nitrogen measurement (mass/volume) 14 mg/dL 7-18 Serum or plasma creatinine measurement (mass/volume) 0.88 mg/dL 0.60-1.30 Serum or plasma urea nitrogen/creatinine mass ratio 16 NRG Serum or plasma creatinine measurement with calculation of estimated glomerular filtration rate > NRG Serum or plasma glucose measurement (mass/volume) 87 mg/dL 70-105 Serum or plasma calcium measurement (mass/volume) 9.3 mg/dL 8.5-10.1 Serum or plasma total bilirubin measurement (mass/volume) 0.4 mg/dL 0.1-1.0 Serum or plasma alkaline phosphatase measurement (enzymatic activity/volume) 78 U/L 40-136 Serum or plasma aspartate aminotransferase measurement (enzymatic activity/ volume) 18 U/L 5-34 Serum or plasma alanine aminotransferase measurement (enzymatic activity/volume ) 28 U/L 0-55 Serum or plasma protein measurement (mass/volume) 6.8 g/dL 6.4-8.2 Serum or plasma albumin measurement (mass/volume) 4.2 g/dL 3.2-4.5 CALCIUM CORRECTED 9.1 mg/dL 8.5-10.1 Serum or plasma amylase measurement (enzymatic activity/volume) - 01/08/18 17: 02 Serum or plasma amylase measurement (enzymatic activity/volume) 46 U /L 25-125 Lipase - 01/08/18 17:02 Lipase 9 U/L 8-78 Serum or plasma troponin i.cardiac measurement (mass/volume) - 01/08/18 17:02 Serum or plasma troponin i.cardiac measurement (mass/volume) < ng/ mL <0.30 Complete urinalysis with reflex to culture - 01/08/18 17:27 Urine color determination YELLOW NRG Urine clarity determination CLEAR NRG Urine pH measurement by test strip 6.5 5-9 Specific gravity of urine by test strip 1.010 1.016- 1.022 Urine protein assay by test strip, semi-quantitative NEGATIVE NEGATIVE Urine glucose detection by automated test strip NEGATIVE NEGATIVE Erythrocytes detection in urine sediment by light microscopy NEGATIVE NEGATIVE Urine ketones detection by automated test strip NEGATIVE NEGATIVE Urine nitrite detection by test strip NEGATIVE NEGATIVE Urine total bilirubin detection by test strip NEGATIVE NEGATIVE Urine urobilinogen measurement by automated test strip (mass/volume) NORMAL NORMAL Urine leukocyte esterase detection by dipstick 3+ NEGATIVE Automated urine sediment erythrocyte count by microscopy (number/high power field) NONE NRG Automated urine sediment leukocyte count by microscopy (number/high power field ) [HPF] NRG Bacteria detection in urine sediment by light microscopy TRACE NRG Squamous epithelial cells detection in urine sediment by light microscopy 2-5 NRG Crystals detection in urine sediment by light microscopy NONE NRG Casts detection in urine sediment by light microscopy NONE NRG Mucus detection in urine sediment by light microscopy NEGATIVE NRG Complete urinalysis with reflex to culture YES NRG Bacterial urine culture - 01/08/18 17:27 Bacterial urine culture SEE COMMEN NRG COLONY COUNT . NRG VIT B-12 - 03/12/18 10:17 Vitamin B12 395.00 pg/mL 213.00-816.00 Encounters ACCT No. Visit Date/Time Discharge Status Pt. Type Provider Facility Loc./Unit Complaint [id number] 01/08/2018 15:11:00 01/08/2018 20:21:00 DIS Emergency PEPPER MCNEAL [facility] ER NAUSEA,STOMACH BURNING [id number] 01/06/2018 05:01:00 01/06/2018 07:05:00 DIS Emergency ALONDRA PANIAGUA MD [facility] ER AMS,SOB,HIGH BLOOD PRESSURE [id number] 12/20/2017 09:29:00 12/20/2017 13:45:00 DIS Outpatient MICHAEL HOLLIDAY MD [facility] ENDO DYSPHAGIA [id number] 12/18/2017 05:40:00 12/18/2017 09:10:00 DIS Outpatient MICHAEL HOLLIDAY MD [facility] PREOP SCREENING [id number] 09/13/2017 11:58:00 09/13/2017 23:59:59 CLS Preadmit RAS DE SANTIAGO DO [facility] REHAB L4-L5 SPONDYLOLISTHESIS [id number] 08/19/2017 07:27:00 08/19/2017 23:59:59 CLS Outpatient ANAND DOTSON [facility] RAD BACK PAIN [id number] 08/16/2017 08:48:00 08/16/2017 09:39:00 DIS Emergency ARCELIA PETER, ALONDRA Villalobos [facility] ER LOWER BACK PAIN, LEG AND FEET PAIN [id number] 08/07/2017 06:56:00 08/07/2017 23:59:59 CLS Outpatient SINCERE PETER, ALEX Das [facility] CARD I10 HTN [id number] 08/01/2017 14:44:00 08/03/2017 11:07:00 DIS Inpatient DAREK PETER, LAY Lassiter [facility] 4TH CHEST PAIN;HTN [id number] 06/21/2017 21:25:00 06/21/2017 22:22:00 DIS Emergency ALEAH SIM PSYCHOLOGY TECHNICIAN [facility] ER LAC LEFT HAND [id number] 05/26/2017 20:00:00 05/27/2017 06:35:00 DIS Outpatient KELSEY MENDENHALL MD [facility] SLEEP G47.33 [id number] 03/23/2017 14:43:00 03/23/2017 23:59:59 CLS Outpatient RAS DE SANTIAGO DO [facility] RAD EXTREMITY WEAKNESS,CORD COMPRESSION [id number] 03/20/2017 09:11:00 03/21/2017 12:58:00 DIS Inpatient RAS DE SANTIAGO DO [facility] 4TH STENOSIS [id number] 03/13/2017 12:56:00 03/13/2017 13:40:00 DIS Outpatient RAS DE SANTIAGO DO [facility] PREOP STENOSIS [id number] 03/03/2017 20:37:00 03/04/2017 06:40:00 DIS Outpatient JUAN LY ASSET PROTECTION SPECIALIST [facility] SLEEP ELENITA G47.33 [id number] 10/07/2016 09:27:00 10/07/2016 23:59:59 CLS Outpatient RAS DE SANTIAGO DO [facility] RAD NECK PAIN [id number] 09/23/2015 20:00:00 09/24/2015 06:30:00 DIS Outpatient KELSEY MENDENHALL MD [facility] SLEEP OBSERVED APNEAS,ELENITA [id number] 04/27/2013 13:29:00 04/30/2013 14:22:00 DIS Outpatient SINCERE PETER, ALEX Das [facility] CATH CHEST PAIN [id number] 08/09/2012 20:49:00 08/10/2012 06:55:00 DIS Outpatient ZA PETER, KELSEY Holm [facility] SLEEP SLEEP APNEA [id number] 05/11/2018 17:15:00 ACT Inpatient ANNE-MARIE PETER, JULITA Villalobos [facility] 4TH ACUTE ANXIETY AND POSSIBLE PSYCHOSIS [id number] 10/11/2016 14:22:00 Document Registration [id number] 05/31/2012 22:13:00 Document Registration [id number] 03/16/2018 16:39:00 03/16/2018 23:59:00 DIS Outpatient Lilian Naylor [id number] 03/12/2018 10:17:00 03/12/2018 23:59:00 DIS Outpatient Nick Jolley [id number] 01/08/2018 14:02:00 01/08/2018 14:30:00 DIS Outpatient Tai Ibrahim [id number] 08/24/2017 14:41:00 08/24/2017 23:59:00 DIS Outpatient Nick Jolley [id number] 08/14/2017 15:13:00 08/14/2017 23:59:00 DIS Outpatient Nick Jolley [id number] 02/10/2017 10:01:00 02/10/2017 23:59:00 DIS Outpatient Nick Jolley [id number] 09/21/2016 13:38:00 09/21/2016 23:59:00 DIS Outpatient Nick Jolley [id number] 09/12/2016 13:41:00 Document Registration [id number] 09/14/2015 08:08:00 Document Registration
--- NOTE | 2018-05-11 18:25 | Diagnostic Imaging Report ---
EXAMINATION: Chest radiograph, portable AP view. DATE: May 11, 2018 at 1754 hours. INDICATION: 58-year-old female, altered mental status. COMPARISON: January 06, 2018. FINDINGS: There is cervical spinal hardware noted. Heart size and mediastinal contours are grossly unchanged. There is no identified pneumothorax. There is no large pleural effusion. Lung volumes are somewhat low with associated central bronchovascular crowding. There is no identified interval focal airspace consolidation. There are technical limitations of the exam relating to patient body habitus and difficulties with exposure. IMPRESSION: Somewhat low lung lines without identified acute cardiopulmonary abnormality. Dictated by: Dictated on workstation # [id number]
[2018-05-11 19:14] VITALS: BP 146/75
[2018-05-11 19:45] VITALS: BP 146/75
[2018-05-11] MEDS ORDERED: LORazepam INJ 2 MG/ML (ATIVAN) VIAL IV PRN (19:45)
[2018-05-11] MEDS ORDERED: ZIPRASIDONE 20 MG (GEODON) CAP PO PRN (19:45)
[2018-05-11] MEDS ORDERED: CATHETER FLUSH 10 ML SYR IV PRN (19:45)
[2018-05-11 20:47] VITALS: BP 146/75
[2018-05-11] MEDS: CATHETER FLUSH 10 ML SYR IV SCH (22:38)
[2018-05-11 23:02] VITALS: BP 122/80
[2018-05-12 04:00] VITALS: BP 150/92
[2018-05-12 05:22] LABS: BASOPHILS % (AUTO) 0 % (0-10); EOSINOPHILS # (AUTO) 0.1 10^3/uL (0.0-0.3); EOSINOPHILS % (AUTO) 1 % (0-10); HEMATOCRIT 40 % (35-52); HEMOGLOBIN 13.1 G/DL (11.5-16.0); LYMPHOCYTES # (AUTO) 1.8 X 10^3 (1.0-4.0); LYMPHOCYTES % (AUTO) 33 % (12-44); MEAN CORPUSCULAR HEMOGLOBIN 33 PG (25-34); MEAN CORPUSCULAR HGB CONC 33 G/DL (32-36); MEAN CORPUSCULAR VOLUME 101 FL (80-99); MEAN PLATELET VOLUME 10.7 FL (7.4-10.4); MONOCYTES # (AUTO) 0.5 X 10^3 (0.0-1.0); MONOCYTES % (AUTO) 9 % (0-12); NEUTROPHILS # (AUTO) 3.2 X 10^3 (1.8-7.8); NEUTROPHILS % (AUTO) 57 % (42-75); PLATELET COUNT 214 10^3/uL (130-400); RED CELL DISTRIBUTION WIDTH 12.7 % (10.0-14.5); WHITE BLOOD COUNT 5.6 10^3/uL (4.3-11.0)
[2018-05-12 05:49] LABS: ALANINE AMINOTRANSFERASE 21 U/L (0-55); ALBUMIN 3.8 GM/DL (3.2-4.5); ALKALINE PHOSPHATASE 76 U/L (40-136); BILIRUBIN,TOTAL 0.6 MG/DL (0.1-1.0); BUN/CREATININE RATIO 20; CALCIUM 8.9 MG/DL (8.5-10.1); CARBON DIOXIDE 22 MMOL/L (21-32); CHLORIDE 109 MMOL/L (98-107); CREATININE SERUM 0.75 MG/DL (0.60-1.30); GFR ESTIMATED > 60; GLUCOSE 90 MG/DL (70-105); POTASSIUM 3.5 MMOL/L (3.6-5.0); SODIUM 143 MMOL/L (135-145); TOTAL PROTEIN 6.2 GM/DL (6.4-8.2)
[2018-05-12] MEDS: CATHETER FLUSH 10 ML SYR IV SCH ×3 (06:33→22:27)
[2018-05-12] MEDS ORDERED: FLU QUADRIvalent (5+ YOA) 2018-2019 (AFLURIA) 0.5 ML IM ONE (07:15)
[2018-05-12 08:00] VITALS: BP 164/83
[2018-05-12] MEDS ORDERED: ONDANSETRON 4 MG/2 ML (SDV) Z0FRAN IVP PRN (09:15)
[2018-05-12] MEDS: ACETAMINOPHEN 500 MG TAB (TYLENOL) PO PRN ×2 (09:42→22:31)
[2018-05-12] MEDS ORDERED: NS 100 ML (IVPB) BAG IV ONE (10:15)
[2018-05-12] MEDS ORDERED: RECEIVED CONTRAST (Hold Metformin) IV SCH (10:15)
[2018-05-12] MEDS ORDERED: IOHEXOL 350 MG/ML 100 ML (OMNIPAQUE 350) VIAL IV ONE (10:15)
--- NOTE | 2018-05-12 11:06 | History & Physical-Hospitalist ---
History of Present Illness HPI/Chief Complaint Mrs. Lr is a 58-year-old white female who was brought in by her with complaints of episodic spells of confusion. She was unable to give much the way of history as she states that she was not aware of what's going on when these episodes happen. They can last 5-10 minutes but she has difficulty with speech. It can happen while she is talking her sentences weren't trail off without any reported associated motor activity. When these happen however if she is doing something she will continue to attempt the activity. An example given her by her was yesterday she was attempting to call someone when her speech trailed off she started putting numbers into the phone in a haphazard manner and did not respond to her . She has a history of generalized anxiety but denies increased anxiety increase external stressors or depressive symptoms. states that these episodes tend to last 5-10 minutes and he had not noted any associated motor activity with the spells. She has no known past history of seizure disorder there is no family history for seizure activity that she is aware of. She has no past history of known cardiac or cerebrovascular disease. Stress test last year after workup for chest pain was unremarkable. She feels more fatigued after these episodes but denies any focal motor or sensory deficit. Date Seen 05/12/18 Time Seen by a Provider: 09:30 Attending Physician Julita Rouse MD PCP Nick Jolley DO Referring Physician Date of Admission May 11, 2018 at 17:15 Home Medications & Allergies Home Medications Reviewed patient Home Medication Reconciliation performed by pharmacy medication reconciliations traffic signal technician and/or nursing. Patients Allergies have been reviewed. Allergies Allergies Coded Allergies Penicillins (Verified Allergy, Unknown, 12/18/17) codeine (Verified Allergy, Unknown, Pt has had Hydrocodone w/o issue, 12/18/17) oxycodone (Verified Allergy, Unknown, Pt has had Hydrocodone w/o issue, ) Past Tyegawo-Itefem-Mwfwuj Hx Past Med/Social Hx: Reviewed Nursing Past Med/Soc Hx, Reviewed and Corrections made Patient Social History Alcohol Use: Denies Use Recreational Drug Use: No Smoking Status: Never a Smoker 2nd Hand Smoke Exposure: No Recent Foreign Travel: No Contact w/other who traveled: No Recent Hopitalizations: No Recent Infectious Disease Expo: No Immunizations Up To Date Tetanus Booster (TDap): Less than 5yrs Pediatric: No Date of Pneumonia Vaccine: Apr 27, 2012 Date of Influenza Vaccine: Feb 01, 2013 Seasonal Allergies Seasonal Allergies: No Past Medical History Surgeries: Abdominal, Gallbladder, Hysterectomy Currently Using CPAP: Yes (states isnt working right) Cardiac: High Cholesterol, Hypertension : No Reproductive: No Sexually Transmitted Disease: No HIV/AIDS: No Hysterectomy, Menopausal Gastrointestinal: Gall Bladder Disease Musculoskeletal: Arthritis Loss of Vision: Bilateral Hearing Impairment: Denies Psychosocial: Anxiety History of Blood Disorders: No Adverse Reaction to Blood [place]: No Family History Cancer 03 MOTHER 09 SISTER Congestive heart failure 03 FATHER Family history: Breast disease 03 MOTHER Family history: Cardiovascular disease 03 FATHER 09 SISTER Family history: Coronary thrombosis Family history: Diabetes mellitus 09 BROTHER Family history: Hypertension 03 FATHER 03 MOTHER 09 SISTER 09 SISTER 09 SISTER Family history: Thyroid disorder 09 SISTER Headache 09 SISTER Heart disease 03 FATHER Myocardial infarction 03 FATHER 09 BROTHER Heart Disease, Cancer, CVA, Diabetes Review of Systems Constitutional: no symptoms reported Respiratory: No no symptoms reported; see HPI; No cough, No dyspnea on exertion , No hemoptysis, No orthopnea, No phlegm, No short of breath Cardiovascular: No chest pain, No edema, No Hx of Intervention, No palpitations , No syncope, No vascular heart diseas, No other Gastrointestinal: abdominal pain (Mild generalized with intermittent nausea) Physical Exam Physical Exam Vital Signs Vital Signs - First Documented 05/11/18 14:01 Temp 96.3 Pulse 121 Resp 16 B/P (MAP) 135/87 (103) Pulse Ox 97 O2 Delivery Room Air Capillary Refill : Less Than 3 Seconds Height, Weight, BMI Height: 5'0.00" Weight: 224lbs. 6.0oz. [id number]; 43.8 BMI Method:Stated General Appearance: No Apparent Distress, Obese HEENT: PERRL/EOMI, Normal ENT Inspection, Pharynx Normal Neck: Full Range of Motion, Normal Inspection, Non Tender, Supple, Carotid Bruit Respiratory: Chest Non Tender, Lungs Clear, Normal Breath Sounds, No Accessory Muscle Use, No Respiratory Distress Cardiovascular: Regular Rate, Rhythm, No Edema, No Gallop, No JVD, No Murmur, Normal Peripheral Pulses Gastrointestinal: Normal Bowel Sounds, No Organomegaly, No Pulsatile Mass, Non Tender, Soft Neurologic/Psychiatric: Alert, Oriented x3, No Motor/Sensory Deficits, Normal Mood/Affect (Somewhat depressed affect although the patient denies depression), sap gatherer II-XII Norm as Tested, Other (Strength is 4-5+ of the upper and lower extremities and is symmetrical. No truncal weakness is noted. Gait is slow but stable no evidence for dysmetria is noted sensation is intact) Skin: Normal Color, Warm/Dry Results Results/Procedures Labs Laboratory Tests 05/11/18 15:55 05/12/18 05:05 Patient resulted labs reviewed. Assessment/Plan Admission Diagnosis 1. Episodes of expressive aphasia with confusion. Differential diagnosis includes concerns for seizure versus pseudoseizure. Somewhat atypical TIA needs to be excluded as well so we will obtain a CTA of the head and neck. Have discussed need for neurologic consultation which we do not have available but can be done as an outpatient. We'll continue to monitor today and as long as CTA of the neck and brain are unremarkable consider discharge tomorrow. As seizure activity is a concern and the patient also has underlying generalized anxiety will try scheduled lorazepam 0.5 3 times a day holding for oversedation which was discussed with . 2. Hypertension for now we'll resume lisinopril hold other medication and monitor pressures. Admission Status: Observation Clinical Quality Measures DVT/VTE Risk/Contraindication: Risk Factor Score Per Nursin RFS Level Per Nursing on Admit: 4+=Very High JULITA ROUSE MD May 12, 2018 11:05
--- NOTE | 2018-05-12 11:07 | Diagnostic Imaging Report ---
PROCEDURE: CT angiography of the head and CT angiography of the neck with and without contrast. TECHNIQUE: Contiguous noncontrast images were obtained from the skull base through the vertex. After intravenous contrast administration, helical CT angiography of the neck was performed. Source data was reformatted into multiple MIP projections. Delayed post contrast acquisition was also obtained. INDICATION: Expressive aphasia with headache and confusion. Correlation is made with noncontrast head CT from one day earlier. There is a three-vessel branching pattern to the aortic arch. Common carotid arteries appear to be patent. The carotid bifurcations are unremarkable. There is some tortuosity to the internal carotid arteries but the internal carotid arteries appear to be patent. Carotid siphons are unremarkable. There appears to be normal perfusion in the middle cerebral artery territories. There appears to be an azygos anterior cerebral artery, a normal variant. This appears to be widely patent. The basilar and posterior cerebral arteries are patent. No thromboemboli are seen. Vertebral arteries are codominant. IMPRESSION: Essentially unremarkable CT angiogram of the head and neck. No thromboemboli are detected. Dictated by: Dictated on workstation # [id number]
[2018-05-12 12:00] VITALS: BP 153/84
[2018-05-12] MEDS ORDERED: lisINopril 20 MG (PRINIVIL) TABLET PO NR (13:31)
[2018-05-12] MEDS: LORazepam 0.5 MG (ATIVAN) TABLET PO SCH ×2 (14:26→22:26)
[2018-05-12 16:32] VITALS: BP 181/93
[2018-05-12 19:33] VITALS: BP 147/87
[2018-05-12 23:01] VITALS: BP 134/75
[2018-05-13 04:00] VITALS: BP 93/66
[2018-05-13] MEDS: LORazepam 0.5 MG (ATIVAN) TABLET PO SCH (06:32)
[2018-05-13] MEDS: CATHETER FLUSH 10 ML SYR IV SCH (06:33)
[2018-05-13 08:00] VITALS: BP 113/63
[2018-05-13] MEDS ORDERED: lisINopril 20 MG (PRINIVIL) TABLET PO SCH (09:00)
[2018-05-13] MEDS ORDERED: LORA0.5T PO (09:31)
[2018-05-13] MEDS ORDERED: FLU QUADRIvalent (5+ YOA) 2018-2019 (AFLURIA) 0.5 ML IM ONE (10:07)
--- NOTE | 2018-05-13 10:35 | Discharge Summary-Hospitalist ---
Diagnosis/Chief Complaint Date of Admission May 11, 2018 at 17:15 Date of Discharge Discharge Date: May 13, 2018 Admission Diagnosis 1. Episodes of expressive aphasia with confusion. Differential diagnosis includes concerns for seizure versus pseudoseizure. Somewhat atypical TIA needs to be excluded as well so we will obtain a CTA of the head and neck. Have discussed need for neurologic consultation which we do not have available but can be done as an outpatient. We'll continue to monitor today and as long as CTA of the neck and brain are unremarkable consider discharge tomorrow. As seizure activity is a concern and the patient also has underlying generalized anxiety will try scheduled lorazepam 0.5 3 times a day holding for oversedation which was discussed with . Discharge Summary Discharge Physical Exam Allergies: Coded Allergies: Penicillins (Verified Allergy, Unknown, 12/18/17) codeine (Verified Allergy, Unknown, Pt has had Hydrocodone w/o issue, 12/18) oxycodone (Verified Allergy, Unknown, Pt has had Hydrocodone w/o issue, ) Vitals & I&Os Vital Signs Date Time Temp Pulse Resp B/P (MAP) Pulse Ox O2 Delivery O2 Flow Rate FiO2 05/13/18 04:00 97.2 98 20 93/66 (75) 94 Room Air General Appearance: No Apparent Distress, Obese HEENT: PERRL/EOMI, Normal ENT Inspection, Pharynx Normal Respiratory: Chest Non Tender, Lungs Clear, Normal Breath Sounds, No Accessory Muscle Use, No Respiratory Distress Cardiovascular: Regular Rate, Rhythm, No Edema, No Gallop, No JVD, No Murmur, Normal Peripheral Pulses Gastrointestinal: Normal Bowel Sounds, No Organomegaly, No Pulsatile Mass, Non Tender, Soft Skin: Normal Color, Warm/Dry Neurologic/Psychiatric: Alert, Oriented x3, No Motor/Sensory Deficits, Normal Mood/Affect (Somewhat depressed affect although the patient denies depression), entry level business analyst II-XII Norm as Tested, Other (Strength is 4-5+ of the upper and lower extremities and is symmetrical. No truncal weakness is noted. Gait is slow but stable no evidence for dysmetria is noted sensation is intact) Hospital Course Was the Problem List Reviewed?: Yes Mrs. Lr is a 58-year-old white female who was brought in by her with complaints of episodic spells of confusion. She was unable to give much the way of history as she states that she was not aware of what's going on when these episodes happen. They can last 5-10 minutes but she has difficulty with speech. It can happen while she is talking her sentences weren't trail off without any reported associated motor activity. When these happen however if she is doing something she will continue to attempt the activity. An example given her by her was yesterday she was attempting to call someone when her speech trailed off she started putting numbers into the phone in a haphazard manner and did not respond to her . She has a history of generalized anxiety but denies increased anxiety increase external stressors or depressive symptoms. states that these episodes tend to last 5-10 minutes and he had not noted any associated motor activity with the spells. She has no known past history of seizure disorder there is no family history for seizure activity that she is aware of. She has no past history of known cardiac or cerebrovascular disease. Stress test last year after workup for chest pain was unremarkable. She feels more fatigued after these episodes but denies any focal motor or sensory deficit. Patient was admitted for observation with my major concerns being a seizure disorder versus pseudoseizure versus TIAs. She underwent CT angiography of the head and neck which revealed no evidence for blockage and no other significant abnormalities were noted. Lorazepam was initiated at a half a milligram every 8 hours. We'll the patient initially denied any stress issues but she later stated that she felt that her symptoms very well may be stress related after we had a discussion about pseudoseizure. We will have her continue lorazepam and a half a milligram twice daily. Both she and her were warned about the potential for oversedation and the need to follow up with Dr. Jolley and consider neurologic referral. She does not drink alcohol and was advised that she should not be driving until further advised by a physician. Labs (last 24 hrs) Patient resulted labs reviewed. Radiology Reviewed CT angiography of the head and neck revealed no evidence for cerebrovascular disease. No significant abnormalities were noted. Discussion & Recommendations Discharge Planning: >30 minutes discharge planning Discharge Home Medications: Active Scripts Active Lorazepam 0.5 Mg Tablet 0.5 Mg PO Q12HR 30 Days Zofran Odt (Ondansetron) 4 Mg Tab.rapdis 4 Mg SL Q4H PRN Metoprolol Succinate 50 Mg Tab.er.24h 50 Mg PO DAILY Reported Citalopram HBr (Citalopram Hydrobromide) 40 Mg Tablet Baclofen 10 Mg Tablet Pantoprazole Sodium 40 Mg Tablet.dr 40 Mg PO DAILY Lisinopril 20 Mg Tablet 20 Mg PO DAILY Escitalopram Oxalate 20 Mg Tablet 20 Mg PO DAILY Furosemide 20 Mg Tablet 20 Mg PO DAILY Instructions to patient/family Please see electronic discharge instructions given to patient. Clinical Quality Measures DVT/VTE Risk/Contraindication: Risk Factor Score Per Nursin RFS Level Per Nursing on Admit: 4+=Very High JULITA XIE MD May 13, 2018 10:35
--- NOTE | 2018-05-14 12:22 | Physician Query-Final Dx ---
DEANNA BUCK 05/14/18 1222: Final Diagnosis Give Final Diagnosis Please give Final Diagnosis JULITA XIE MD 05/18/18 1017: Final Diagnosis Give Final Diagnosis altered mental statis due to conversion disorder aggravated by generalized anxiety and depression. DEANNA BUCK May 14, 2018 12:22 JULITA XIE MD May 18, 2018 10:17
== END 2018-05-13 10:35 | disposition home or self-care (01) | DRG 880 ==
LOC: EDUNIT# 13:52 → ER 13:53 → 4TH 17:15
PROVIDERS: ADMIT Internal Medicine; ATTEND Internal Medicine
DX: F44.2 Dissociative stupor (principal); F41.9 Anxiety disorder, unspecified; F32.9 Major depressive disorder, single episode, unspecified; F80.1 Expressive language disorder; I10 Essential (primary) hypertension; E78.00 Pure hypercholesterolemia, unspecified; J44.9 Chronic obstructive pulmonary disease, unspecified; G47.30 Sleep apnea, unspecified; K21.9 Gastro-esophageal reflux disease without esophagitis
CPT/HCPCS: 36415; 70450; 70496; 70498; 71045; 80053; 83036; 84443; 85025; 90471; 90686; 93005; 96374; 96375

== ENCOUNTER 2019-02-20 05:45 | Outpatient (CLI) | payer MEDICARE ==
[~2019-02-20] VITALS: Ht 152 cm; Wt 106.0 kg
[~2019-02-20 05:45] MED LIST changes: -CITA40TA11; +CITA40TA11 PO; +LORA0.5T PO
[2019-02-20] MEDS ORDERED: ROPI0.253 PO (12:18)
== END 2019-02-20 12:23 | disposition home or self-care (01) ==
LOC: PREOP 05:45
PROVIDERS: ATTEND Surgery
DX: Z01.818 Encounter for other preprocedural examination (principal)

== ENCOUNTER 2019-03-06 10:28 | Day surgery (SDC) | payer MEDICARE ==
--- NOTE | 2019-02-21 07:08 | HISTORY AND PHYSICAL ---
DATE OF SERVICE: PROCEDURE DATE: 02/27/2019. ATTENDING PHYSICIAN: Dr. Jolley. HISTORY OF PRESENT ILLNESS: The patient is a 58-year-old female who is known to us. She had been seen before in the past for reflux and dysphagia. In 2013, she did develop chest pain with radiation towards the back as well as a bloating sensation. She reported a longstanding history of gastroesophageal reflux disease and underwent a Thiago fundoplication around 2008. She then underwent an EGD and biopsies as well as balloon dilatation at that time. She reports that she has a worsening reflux with substernal chest pressure after her flood bolus, which would sometimes to go down and decompress where she would regurgitate the food. She then underwent another EGD with biopsy and balloon dilatation on 12/20/2017 by us. She was found to have reflux esophagitis stage III with a distal esophageal stricture with an intact previous antireflux procedure, moderate to severe gastritis with no formal ulcerations. The pylorus and duodenum appeared normal with no distal obstructions. Biopsies were negative for H. pylori as well as negative for Irvin's esophagus. She was then seen in the office on 02/18/2019, with complaints of nausea with episodes of once again dysphagia. She reports that she has noticed at times it does appear that she does have difficulty with solid food getting stuck and reports it does seem like this is slow to go down. She denies any vomiting as well as no hematemesis. She does still have issues with reflux and takes Protonix 40 mg daily. After her last EGD with balloon dilatation, she was able to be dilated at 8 atmospheres of pressure 15 mm in diameter; however, there was moderate resistance. It was decided that she may need graded dilatation and if she continued to have problems that we would proceed with this. PAST MEDICAL HISTORY: Hypertension, gastroesophageal reflux disease, anxiety and depression, CHF, restless legs syndrome. PAST SURGICAL HISTORY: Cholecystectomy in 2004, complete hysterectomy in 2005, laparoscopic Thiago fundoplication in 2008, cervical neck surgery in 2017, EGD dilatation in 2008, 2013 and 2017. ALLERGIES: CODEINE AND OXYCODONE. HOME MEDICATIONS: Lasix 20 mg daily, lisinopril 20 mg daily, metoprolol ER 50 mg daily, Requip, escitalopram 40 mg daily, Protonix 40 mg daily. SOCIAL HISTORY: Negative for smoke. Negative for alcohol. FAMILY HISTORY: Mother with breast cancer diagnosed at 65 years of age, lung cancer diagnosed at 69 years of age. Sister with breast cancer diagnosed at 45 years of age, type 2 diabetes mellitus and hypertension. Brother with type 2 diabetes mellitus, myocardial infarction at 51 years of age. Grandparent with diabetes mellitus and stroke. VITAL SIGNS: Blood pressure is 160/90. Current weight is 235.1, 5 feet 0 inches. REVIEW OF SYSTEMS: Well-nourished female, in no acute distress. She is not experiencing any shortness of breath or difficulty breathing. No chest pain, palpitations or diaphoresis. She does report episodes of nausea, but no vomiting. She does occasionally report epigastric discomfort as well as dysphagia. She denies any diarrhea or constipation. No red blood per rectum. No dark tarry stools. No fever or chills. No recent inadvertent weight loss. All other review of systems negative. PHYSICAL EXAMINATION: CHEST: Clear. Good breath sounds bilaterally. HEART: Regular, no murmurs. EXTREMITIES: No lower extremity edema. Negative Homans sign. HEENT: No scleral icterus. No cervical lymphadenopathy. ABDOMEN: Soft, nontender, nondistended. SKIN: Warm, dry and pink. NEUROLOGIC: Awake, alert, oriented x3. ASSESSMENT AND PLAN: A 58-year-old female with dysphagia, nausea as well as symptomatic gastroesophageal reflux disease. She has had a previous hiatal hernia repair and Thiago fundoplication in 2008 and has had a followup EGDs as well as balloon dilatation since that time. At this time, we will once again recommend proceeding with an EGD with possible balloon dilatation. The risks and benefits of the procedure as well as the procedure and home care instructions were explained to the patient. The patient verbalized understanding of instructions and agrees to proceed with this plan. At this time, we will proceed with scheduling the patient for EGD with possible balloon dilatation. Job ID: [id number] DocumentID: [id number] Dictated Date: 02/19/2019 08:59:40 Loan Underwriter Date: 02/19/2019 10:26:37 Dictated By: YG CHRISTINE
[~2019-03-06] VITALS: Ht 152 cm; Wt 106.0 kg
[2019-03-06] VITALS (10 sets, daily range): BP systolic 128–192; BP diastolic 61–101
[~2019-03-06 10:28] MED LIST changes: +ROPI0.253 PO
[2019-03-06] MEDS ORDERED: NS IV 500 ML 500 ML ONE ×2 (10:39→12:47)
--- NOTE | 2019-03-06 10:39 | Conscious Sedation/ASA ---
Conscious Sedation Pre-Proced Time 10:30 ASA Score 2 For ASA 3 and 4: Consider anesthesia and medical clearance. Also, for patients with a history of failed moderate sedation consider anesthesia. Airway Lungs Heart ASA score ASA 1: a normal healthy patient ASA 2: a patient with a mild systemic disease (mid diabetes, controlled hypertension, obesity ASA 3: a patient with a severe systemic disease that limits activity (angina, COPD, prior Myocardial infarction) ASA 4: a patient with an incapacitating disease that is a constant threat to life (CHF, renal failure) ASA 5: a moribund patient not expected to survive 24 hrs. (ruptured aneurysm) ASA 6: a declared brain- patient whose organs are being harvested. For emergent operations, add the letter E after the classification Mallampati Classification Grade 2 Sedation Plan Analgesia, Amnesia, Plan communicated to team members, Discussed options with patient/fam, Discussed risks with patient/fam The patient is an appropriate candidate to undergo the planned procedure, sedation, and anesthesia. The patient immediately re-assessed prior to indication. MICHAEL HOLLIDAY MD Mar 06, 2019 10:39 POS
--- NOTE | 2019-03-06 10:40 | Progress Note-Pre Operative ---
Pre-Operative Progress Note H&P Reviewed The H&P was reviewed, patient examined and no changes noted. Date Seen by Provider: Mar 06, 2019 Time Seen by Provider: 10:30 Date H&P Reviewed: Mar 06, 2019 Time H&P Reviewed: 10:30 Pre-Operative Diagnosis: dysphagia, stricture MICHAEL HOLLIDAY MD Mar 06, 2019 10:40 POS
--- NOTE | 2019-03-06 10:41 | Discharge Inst-Surgical ---
D/C Lap Instructions-MG Follow Up Appt in 8 weeks Activity as tolerated High Fiber Diet 25g or more per day Avoid Alcohol, Caffeine, Spicy Cecil and Acid foods. Drink 64 fluid oz or more of fluids per day. Symptoms to Report: Fever over 101 degree F, Nausea/Vomiting If any problems/questions: Contact your physician or go to Emergency Room MICHAEL HOLLIDAY MD Mar 06, 2019 10:41 POS
[2019-03-06] MEDS ORDERED: morphine INJ 10 MG/ML 1ML (SYR OR VIAL) IVP PRN ×2 (10:45)
[2019-03-06] MEDS ORDERED: HYDROcodone/APAP 5 MG/325 MG (LORTAB) TAB PO PRN (10:45)
[2019-03-06] MEDS: NS IV 500 ML 500 ML IV PRN ×2 (10:45→13:00)
[2019-03-06] MEDS ORDERED: ACETAMINOPHEN 325 MG TABLET PO PRN (10:45)
[2019-03-06] MEDS ORDERED: ONDANSETRON 4 MG/2 ML (SDV) Z0FRAN IVP PRN (10:45)
[2019-03-06] MEDS ORDERED: fentaNYL INJECTION 100 MCG/2 ML AMP IVP ONE (11:00)
[2019-03-06] MEDS ORDERED: LIDOCAINE JELLY 2% 6 ML SYRINGE MM PRN (11:00)
[2019-03-06] MEDS ORDERED: HURRICAINE EXT TUBE (BENZOCAINE) XX PRN (11:00)
[2019-03-06] MEDS ORDERED: LIDOCAINE JELLY 2% 6 ML SYRINGE ONE (12:44)
[2019-03-06] MEDS ORDERED: fentaNYL INJECTION 100 MCG/2 ML AMP ONE (12:45)
[2019-03-06] MEDS ORDERED: MIDAZOLAM 5 MG/5 ML (VERSED) VIAL ONE (12:45)
[2019-03-06] MEDS ORDERED: MIDAZOLAM 2 MG/2 ML (VERSED) VIAL ONE (12:45)
[2019-03-06] MEDS: MIDAZOLAM 5 MG/5 ML (VERSED) VIAL IV PRN ×3 (12:55→13:13)
--- NOTE | 2019-03-06 13:53 | Progress Note-Post Operative ---
Post-Operative Progess Note Surgeon (s)/Apple Picking Supervisor (s) Surgeon MICHAEL HOLLIDAY MD Apple Picking Supervisor: none Pre-Operative Diagnosis dysphagia, stricture Post-Operative Diagnosis reflux esophagitis(stage 2), mild distal esoph stricture, mild gastritis. Procedure & Operative Findings Date of Procedure 03/06/19 Procedure Performed/Findings EGD with bx and balloon dilatation. Anesthesia Type cs Estimated Blood Loss Estimated blood loss (mL): minimal Specimens/Packing Specimens Removed ge jxn, antrum MICHAEL HOLLIDAY MD Mar 06, 2019 13:53 POS
--- NOTE | 2019-03-06 23:25 | OPERATIVE REPORT ---
DATE OF SERVICE: ATTENDING PRIMARY CARE PHYSICIAN: Nick Jolley DO PREOPERATIVE DIAGNOSIS: Dysphagia with distal esophageal stricture. POSTOPERATIVE DIAGNOSES: Distal esophageal stricture, no hiatal hernia, reflux esophagitis, stage II, mild gastritis. No distal obstructions. PROCEDURE: EGD with biopsy and balloon dilatation. SURGEON: Michael Holliday MD ANESTHESIA: Conscious sedation. ESTIMATED BLOOD LOSS: Minimal. FINDINGS: Distal esophageal stricture, no hiatal hernia, reflux esophagitis, stage II, mild gastritis. No distal obstructions. DISPOSITION: The patient tolerated the procedure well. INDICATIONS: The patient is a 59-year-old female known to us. We had seen her in the past for reflux and dysphagia. She is status post Thiago fundoplication in 2008. She has had worsening issues with dysphagia and we had done an EGD and balloon dilatation on 12/20/2017. She had recurrence of symptoms and on 02/18/2019 she had recurrence of significant dysphagia and a stricture was once again identified and we were able to dilate to 15 mm in diameter; however, there was significant resistance. She is here for further graded dilatation. DESCRIPTION OF PROCEDURE: The patient was brought to the endoscopy suite, laid in left lateral decubitus position. After adequate IV pain and sedative medications and conscious sedation anesthesia, the mouthpiece was applied. The endoscope was placed in the mouth, visualizing the pharynx and hypopharyngeal region. Vocal cords, epiglottis and vallecula identified and appeared to be normal. The endoscope was then gently intubated into the esophageal opening and esophagus insufflated. The endoscope was then advanced through the first, second and third portion of the esophagus at the level of the GE junction, a reflux esophagitis stage II identified. A distal esophageal stricture was once again identified. A biopsy was taken of the GE junction with forceps with visualization of good hemostasis. The endoscope was then advanced into the stomach and endoscope retroflexed visualizing no hiatal hernia as well as the esophageal stricture as well. There was a mild to moderate gastritis and a biopsy was taken of the antrum to rule out H. pylori with visualization of good hemostasis. Endoscope was then advanced to the pylorus, the first and second portion of the duodenum, which appeared normal with no distal obstructions. We then proceeded with balloon dilatation of the distal esophageal stricture. The balloon was placed into the stomach and pulled back to the area of the stricture. We first proceeded to 2 atmospheres of pressure with no resistance. We then proceeded to 4 atmospheres of pressure with mild resistance. We then slowly went to 6 atmospheres of pressure or 18 mm in luminal diameter with moderate resistance and left this in place for approximately 60 seconds. The balloon was then desufflated and removed with visualization of good hemostasis as well as no mucosal tears. Endoscope was then slowly withdrawn while taking a second look and suctioning of residual air with no additional findings. The patient tolerated the procedure well. We will have her continue with the necessary lifestyle and diet accommodation including small and more frequent meals, avoidance of eating at night as well as head elevation while lying supine. We also want her to avoid caffeinated beverages, spicy, greasy and acidic foods. We were able to dilate to 18 mm; however, if she does become symptomatic or notices becoming slightly more symptomatic, we will have her followup and proceed with further dilatation. Job ID: [id number] DocumentID: [id number] Dictated Date: 03/06/2019 13:27:20 Marketing Content Specialist Date: 03/06/2019 23:24:50 Dictated By: MICHAEL HOLLIDAY MD
== END 2019-03-06 14:05 ==
LOC: ENDO 10:28
PROVIDERS: ATTEND Surgery
DX: K22.2 Esophageal obstruction (principal); K21.0 Gastro-esophageal reflux disease with esophagitis; K29.50 Unspecified chronic gastritis without bleeding; I11.0 Hypertensive heart disease with heart failure; I50.9 Heart failure, unspecified; F41.9 Anxiety disorder, unspecified; F32.9 Major depressive disorder, single episode, unspecified; Z90.49 Acquired absence of other specified parts of digestive tract; Z90.710 Acquired absence of both cervix and uterus; Z79.899 Other long term (current) drug therapy; Z80.3 Family history of malignant neoplasm of breast; Z80.1 Family history of malignant neoplasm of trachea, bronchus and lung; Z83.3 Family history of diabetes mellitus; Z82.49 Family history of ischemic heart disease and other diseases of the circulatory system; Z83.2 Family history of diseases of the blood and blood-forming organs and certain disorders involving the immune mechanism
CPT/HCPCS: 88305

== ENCOUNTER → 2022-07-31 | Outpatient (CLI) | payer OTHER, MEDICARE ==
[~2022-07-31] MED LIST changes: -ACET325C5 PO; +ACET325C7 PO; +AMLO-251 PO; -AMLO10TA7 PO; -CITA40TA11 PO; +CITA40TA13 PO; +ESCI20TA39 PO; -ESCI20TA45 PO; -LISI-552 PO; +LISI20TA26 PO; -METO-370 PO; +METO50TA7 PO; -PANT40TA3 PO; +PANT40TA52 PO; -SULF1TAB35 PO; +SULF1TAB38 PO
[2022-07-31 07:07] LABS: ALBUMIN 3.7 GM/DL (3.2-4.5); BILIRUBIN,TOTAL 0.4 MG/DL (0.1-1.0); CALCIUM 8.6 MG/DL (8.5-10.1); CREATININE SERUM 1.06 MG/DL (0.60-1.30); POTASSIUM 3.7 MMOL/L (3.6-5.0); TOTAL PROTEIN 5.9 GM/DL (6.4-8.2)
== END ==
LOC: LABNPT 06:58
PROVIDERS: ATTEND Internal Medicine
DX: Z01.89 Encounter for other specified special examinations (principal)
CPT/HCPCS: 80053

== ENCOUNTER → 2022-08-01 | Outpatient (CLI) | payer OTHER, MEDICARE ==
[2022-08-01 07:33] LABS: BILIRUBIN,TOTAL 0.5 MG/DL (0.1-1.0); CALCIUM 8.5 MG/DL (8.5-10.1); CREATININE SERUM 1.41 MG/DL (0.60-1.30); POTASSIUM 4.2 MMOL/L (3.6-5.0); TOTAL PROTEIN 6.3 GM/DL (6.4-8.2)
== END ==
LOC: LABNPT 07:01
PROVIDERS: ATTEND Internal Medicine
DX: Z01.89 Encounter for other specified special examinations (principal)
CPT/HCPCS: 80053